=== PATIENT | male | born 1970 | race Caucasian/White ===

== ENCOUNTER 2019-11-30 15:33 | Inpatient (IN) | payer MEDICAID, SELFPAY ==
[2019-11-30] VITALS (40 sets, daily range): BP systolic 117–180; BP diastolic 58–98; PULSE 62–90; RESP 8–27; TEMP 36–36.4; O2SAT 92–100
--- NOTE | 2019-11-30 15:49 | ED.GENADUL_ITS ---
Discharge Plan Disposition Patient Disposition: [facility] INPATIENT Condition: Fair Discharge Details Chief Complaint: Chest Pain Clinical Impression: Pancreatitis, acute Admit Date/Time: 11/30/19 19:34 Admit Provider: Mendel Braswell Attending Provider: Mendel Braswell Primary Care Provider: Cm Neri ED Provider: Oralia Calle Discharge Data Discharge Date/Time-TO BE ENTERED AT DEPARTURE: 11/30/19 20:45 Medical Decision Making Patient is a 49-year-old gentleman presenting today with chief complaint of epigastric, right upper quadrant pain. Patient had been perceiving this is a potential NE. He states the pain came on suddenly when he was working. He states that he was seated at the time the pain began. Reports this came on approximately 1 hour after drinking a large energy drink which is atypical for him. He states that then later when sitting in the car, he began having tingling in his bilateral upper extremities. He denies any substernal chest pain. No cough. No fevers or chills. States that initially, the pain radiated to the back but this since subsided. Past medical history pertinent for GERD as well as Sienna-Lerner tear which was surgically corrected. Patient reports he smokes 1 pack of cigarettes daily. Reports 3 alcoholic beverages a night. Reports occasional cocaine use, none in the past few days. No history of cardiac disease. Denies history of anxiety. On exam, patient appears quite anxious. He does not appear toxic. Lung sounds are clear. Normal cardiac exam. 2+ distal pulses in all extremities. RUQ tenderness, negative Malhotra's sign. Pain is also elicited in epigastric region, no LUQ pain, no CP with palpation. No peritoneal findings or evidence of acute surgical abdomen. ECG was reviewed by Dr. Van. Patient is in normal sinus rhythm with a rate of 94. Nonspecific ST flattening. No acute ischemic changes noted. Patient is primarily concerned for ACS which is around the command. History of being sedentary at the time of the onset is less likely a particularly as his pain is elicited with palpation over the epigastric and right upper quadrant region. It did come on after large energy drink and I am concerned that this may have exacerbated his GERD or potentially a gallbladder issue given his location of pain. Patient does drink alcohol routinely, may have pancreatitis but the pain is less pronounced on the left side. He has 2+ distal pulses, no pulsatile mass. No familial history of dissection, no history of connective tissue disorders. Also considered PE particularly as the patient is tachypneic but he is not endorsing shortness of breath. Will screen with a d-dimer. His tingling and tachypnea seems to be primarily driven by anxiety based on exam. US reviewed by radiologist: FINDINGS: ABDOMINAL AORTA AND IVC: Visualized portions normal caliber. PANCREAS: Normal where visualized. LIVER: Normal. Hepatopedal flow in the Portal Vein. Hepatomegaly measuring 17.1 cm. GALLBLADDER: No evidence of cholelithiasis. No evidence of wall thickening. No pericholecystic fluid identified. BILIARY SYSTEM: Common bile duct measures 6.6 mm. No intrahepatic biliary ductal dilation. MALHOTRA'S SIGN: Negative. KIDNEYS: Kidneys are symmetric in size. No evidence of renal calculi. No evidence of hydronephrosis. No renal mass or cyst identified. SPLEEN: Not enlarged. ASCITES: None seen. IMPRESSION: Hepatomegaly otherwise unremarkable abdominal ultrasound. Labs reviewed. No leukocytosis, normal H&H. Patient's d-dimer is elevated at 813. Plan for CTA for PE. Potassium slightly low at 3.2, will replenish this here. Patient does have an anion gap of 13.3. BUN is normal as is creatinine. Initial troponin is less than 0.05. Lipase is elevated at 516. Patient denies any history of pancreatitis. Has had recent alcohol use. With the elevated lipase, w CT for PE also include the abdomen.ill FINDINGS: Pulmonary arteries: No evidence of pulmonary embolus to the segmental level. Aorta: No aneurysm of the aorta. No dissection of the aorta. Lungs: Unremarkable. No consolidation. No masses. Pleural space: Unremarkable. No pneumothorax. No pleural effusion. Heart: Unremarkable. No cardiomegaly. No pericardial effusion. Lymph nodes: Unremarkable. No enlarged lymph nodes. Bones/joints: Unremarkable. No acute fracture. Soft tissues: Unremarkable. IMPRESSION: 1. No evidence of pulmonary embolus to the segmental level. 2. No aneurysm of the aorta. 3. No dissection of the aorta. FINDINGS: Liver: Normal. No mass. Gallbladder and bile ducts: Normal. No calcified stones. No ductal dilation. Pancreas: Hypoattenuation in the pancreas may represent pancreatitis in the appropriate clinical setting. Spleen: Normal. No splenomegaly. Adrenals: Normal. No mass. Kidneys and ureters: Normal. No hydronephrosis. Stomach and bowel: Findings consistent with constipation. Appendix: Normal appendix Intraperitoneal space: Unremarkable. No free air. No significant fluid collection. Vasculature: Unremarkable. No abdominal aortic aneurysm. Lymph nodes: Unremarkable. No enlarged lymph nodes. Bladder: Unremarkable as visualized. Reproductive: Unremarkable as visualized. Bones/joints: Unremarkable. No acute fracture. Soft tissues: Unremarkable. IMPRESSION: Hypoattenuation in the pancreas may represent pancreatitis in the appropriate clinical setting. Patient is remained n.p.o. Is receiving a second liter of fluids. Sounds most consistent with pancreatitis based on labs and imaging. Awaiting repeat troponin and plan to admit. Consulted with Repeat troponin remains less than 0.05. Consulted with Dr. Braswell regarding admission. He accepts for continued hydration and monitoring. Patient is requesting pain medication, will give 1 mg of Dilaudid. HPI General Mode of arrival: ambulatory . Date/Time Provider Initiated Documentation: 11/30/19 15:33 . Limitations to Documentation: no limitations . Information obtained by: patient and RN notes reviewed . HPI Narrative: Patient is a pleasant 49-year-old male with history of GERD, presenting today with chief complaint of sharp epigastric pain that began approximately 1300. He reports that he was sitting while at work. 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 States the pain did radiate to the back. He states that initially, feels very similar to GERD he has experienced historically. He does report that recently, he has been forgetting to take his omeprazole. States that recently his GERD has been worse and associates it with this medication change. Denies any nausea or vomiting. He reports that then later when he was driving home seated in a truck he became short of breath, dizzy and noted tingling in bilateral upper extremities. He denies any change in bowel or bladder habits. No fevers or chills. Denies any cough. Has not had much for water today but does report drinking a very large energy drink approximately 1 hour to the onset of symptoms which she states is very unusual for him. Related Data Home Medications Medication Instructions Recorded Confirmed bupropion HCl [Wellbutrin XL] 300 mg PO QAM 11/30/19 11/30/19 methadone 80 mg PO DAILY 11/30/19 11/30/19 pantoprazole [Protonix] 40 mg PO DAILY 11/30/19 11/30/19 Allergies Allergy/AdvReac Type Severity Reaction Status Date / Time No Known Allergies Allergy Unverified 11/30/19 15:37 General Stated Complaint: Chest Pain MICKIE: 2 Review of Systems Constitutional Constitutional: Reports as per HPI, Denies chills, Denies fever(s), Denies headache(s), Denies lethargy and Denies poor appetite Eyes Eyes: Denies change in vision ENT Ears, Nose, Mouth, and Throat: Denies dizziness and Denies headache(s) Cardiovascular Cardiovascular: Reports as per HPI, Denies chest pain, Denies chest pain at rest, Denies chest pain with activity, Denies edema, Denies irregular heart rhythm, Denies leg edema, Reports lightheadedness, Denies radiating jaw, neck or arm pain, Denies palpitations, Denies dyspnea, Denies dyspnea on exertion and Denies orthopnea Respiratory Respiratory: Reports as per HPI, Denies chest congestion, Denies cough, Denies pain on inspiration, Denies pain with cough, Denies dyspnea, Denies dyspnea on exertion and Denies wheezing Gastrointestinal Gastrointestinal: Reports as per HPI, Reports abdominal pain, Denies hematochezia, Denies coffee ground emesis, Denies diarrhea, Denies nausea and Denies vomiting Genitourinary Genitourinary: Denies system reviewed and no additional complaints, except as documented (denies change in urinary habits) Musculoskeletal Musculoskeletal: Reports as per HPI and Reports back pain (Had this initially and it since subsided) Integumentary/Breasts Skin/Breast: Reports as per HPI and Denies rash Neurologic Neurologic: Reports as per HPI, Denies dizziness and Denies headache(s) Endocrine Endocrine: Denies palpitations Allergic/Immunologic Allergic/Immunologic: Denies wheezing [facility] Medical History (Updated 12/01/19 @ 14:53 by Jordana Mcgovern NP) Alcohol abuse, daily use (Chronic) Depression (Chronic) Opioid dependence on agonist therapy (Chronic) Tobacco dependence due to cigarettes (Chronic) Social History Smoking/Tobacco Use Status: Current every day Tobacco Type: cigarettes Alcohol Intake: current Alcohol Intake frequency: 3 or more drinks per day Alcohol type: beer Drug use: Daily Substance use type: marijuana and crack/cocaine Do you feel safe at home: Yes Do you feel safe in your relationship?: Yes Exam Const General: cooperative, comfortable, no acute distress, well developed and anxious Nutritional Appearance: well nourished and thin Orientation: alert, awake and oriented x3 HENMT Head: normal to inspection Ears: hearing grossly normal bilaterally Mouth: mucous membranes dry (Patient appears dehydrated) Neck Neck: no JVD Chest Chest: normal inspection of the chest, normal palpation of entire chest wall and no crepitus Resp Effort & Inspection: normal respiratory effort, able to speak in complete sentences and no respiratory distress Auscultation: clear to auscultation bilaterally, no rales, no rhonchi and no wheezes Cardio Rate: regular rate Rhythm: regular rhythm Heart Sounds: S1 normal and S2 normal GI Inspection: normal to inspection, no edema and non-distended Palpation: soft, no hepatosplenomegaly, not firm, no guarding, not rigid and tender in the RUQ; not at McBurney's point, Malhotra's sign negative and with no rebound tenderness Auscultation: normal bowel sounds Back/Spine/Pelvis Back: no CVA tenderness Thoracic/Lumbar Spine: thoracic and lumbar spine normal to inspection Skin General skin exam: no rashes or lesions noted Trauma: no lacerations or abrasions Neuro General: patient alert, patient awake and patient oriented x3 Cognition: normal cognition Speech: speech normal Gait: normal gait Extrem General: normal to inspection, capillary refill normal, no pedal edema, no calf tenderness, normal gait and other (2+ distal pulses in all extremities) Psych Appearance: grossly normal and well kempt Mental Status: mental status grossly normal Speech and Movement: speech and movement normal Course Vital Signs Vital signs: Vital Signs Temperature 36.4 C L 11/30/19 15:39 Pulse 87 11/30/19 15:39 Respiratory Rate 26 H 11/30/19 15:39 Blood Pressure 125/71 11/30/19 15:39 Pulse Oximetry 99 11/30/19 15:39 Temperature 36.4 C L 11/30/19 15:39 Temperature Source Temporal Artery Scan 11/30/19 15:39 Pulse 87 11/30/19 15:39 Respiratory Rate 26 H 11/30/19 15:39 Respiratory Effort Non-Labored 11/30/19 15:42 Blood Pressure 125/71 11/30/19 15:39 Blood Pressure Position Sitting 11/30/19 15:39 Pulse Oximetry 99 11/30/19 15:39 Oxygen Delivery Method Room Air 11/30/19 15:39 Oxygen Flow Rate 0 11/30/19 15:39 Pain Level 4 11/30/19 15:39
[2019-11-30 15:51] LABS: Abs Immature Grans 0.02 k/cumm (0.0-0.09); Absolute Basophil Count 0.05 k/cumm (0.0-0.2); Absolute Eosinophil Count 0.08 k/cumm (0.0-0.7); Absolute Lymphocyte Count 4.28 k/cumm (1.2-3.4); Absolute Monocyte Count 0.95 k/cumm (0.11-0.7); Absolute Neutrophil Count 3.55 k/cumm (1.2-6.7); Basophils % 0.6; Eosinophils % 0.9; HCT 44.5 % (40.0-50.0); HGB 15.7 g/dL (13.5-17.5); Immature Grans % 0.2 %; Lymphocytes % 47.9; Mean Corp. HGB Concentration 35.3 g/dL (32.0-36.0); Mean Corpuscular Hemoglobin 31.3 pg (27.0-33.0); Mean Corpuscular Volume 88.6 fL (80-95); Mean Platelet Volume 8.9 fL (8.0-11.0); Monocytes % 10.6; Neutrophils % 39.8; Platelet Count 298 x1000/uL (130-400); RBC 5.02 m/cumm (4.50-6.00); RBC Distribution Width 14.9 % (11.8-14.1); White Blood Cell Count 8.93 k/cumm (4.4-10.8)
--- NOTE | 2019-11-30 16:00 | DI.RAD_ITS ---
EXAM: XR CHEST 2V PA LATERAL CLINICAL HISTORY: epigastric/RUQ pain, radiates into chest TECHNIQUE: 2D digital imaging was performed. COMPARISON: No exams were available for comparison FINDINGS: MEDIASTINUM: Normal. HEART: Normal. PULMONARY VASCULATURE: Normal. LUNGS: Clear. PLEURAL SPACE: No pleural effusion or pneumothorax. BONE:Degenerative changes in the spine. OTHER FINDINGS:Normal. IMPRESSION: No acute pulmonary findings. DATA REPOSITORY: RADIATION DOSE DELIVERED:
--- NOTE | 2019-11-30 16:00 | DI.US_ITS ---
EXAM: US ABDOMEN CLINICAL HISTORY: RUQ pain TECHNIQUE: Ultrasound abdomen performed using standard protocol. COMPARISON: No exams were available for comparison FINDINGS: ABDOMINAL AORTA AND IVC: Visualized portions normal caliber. PANCREAS: Normal where visualized. LIVER: Normal. Hepatopedal flow in the Portal Vein. Hepatomegaly measuring 17.1 cm. GALLBLADDER: No evidence of cholelithiasis. No evidence of wall thickening. No pericholecystic fluid identified. BILIARY SYSTEM: Common bile duct measures 6.6 mm. No intrahepatic biliary ductal dilation. LUND'S SIGN: Negative. KIDNEYS: Kidneys are symmetric in size. No evidence of renal calculi. No evidence of hydronephrosis. No renal mass or cyst identified. SPLEEN: Not enlarged. ASCITES: None seen. IMPRESSION: Hepatomegaly otherwise unremarkable abdominal ultrasound. DATA REPOSITORY:
[2019-11-30 16:12] LABS: ALT 35 U/L (16-63); AST 33 U/L (15-37); Albumin 3.9 g/dL (3.4-5.0); Alkaline Phosphatase 95 U/L (46-116); Anion Gap 13.3 mmol/L (3-11); BUN 7 mg/dL (7-18); Bilirubin, Total 0.4 mg/dL (0.2-1.0); CO2 24.7 mmol/L (21.0-32.0); CREATININE 0.96 mg/dL (0.70-1.30); Calcium 9.1 mg/dL (8.5-10.1); Chloride 99 mmol/L (98-107); Glucose 99 mg/dL (74-106); Magnesium 2.1 mg/dL (1.8-2.4); Potassium 3.2 mmol/L (3.5-5.1); Sodium 137 mmol/L (136-145)
[2019-11-30 16:15] LABS: Troponin I < 0.05 ng/mL (<0.06)
[2019-11-30 16:20] LABS: Lipase 516 U/L (73-393)
[2019-11-30 16:29] LABS: D-Dimer 813 ng/mlFEU (<500)
[2019-11-30] MEDS: Lactated Ringers 1,000 ML 1000 ML IV ×2 (16:30→18:30)
--- NOTE | 2019-11-30 16:44 | DI.VRAD_ITS ---
PROCEDURE INFORMATION: Exam: US Abdomen Complete Exam date and time: 11/30/2019 4:02 PM Age: 49 years old Clinical indication: Abdominal pain; Localized; Right upper quadrant (ruq); Patient HX: Elevated lipase TECHNIQUE: Imaging protocol: Real-time ultrasound of the abdomen with image documentation. COMPARISON: No relevant prior studies available. FINDINGS: Liver: Hepatomegaly 17 cm Gallbladder: Gallbladder wall 1.7 mm. Gallbladder appears mildly contracted Common bile duct: Common bile duct 6.6 mm Pancreas: Visualized pancreas is unremarkable. Right kidney: Right kidney 11.7 cm. No hydronephrosis Left kidney: Left kidney 13.3 cm. No hydronephrosis Spleen: Spleen 7.7 cm Aorta: Proximal aorta 2.3 cm. Mid aorta 1.6 cm Inferior vena cava: Proximal IVC 2.9 cm Portal venous: Antegrade flow in the portal vein IMPRESSION: Hepatomegaly 17 cm Dictated and Authenticated by: Tracey Brasher MD. Ordering:BARBARA Barton MD
--- NOTE | 2019-11-30 16:45 | DI.CT_ITS ---
EXAM: CT CHEST PE ABD PELVIS W CLINICAL HISTORY: epigastric pain, elevated lipase, tachypnic, d-dim TECHNIQUE: Imaging Protocol: Axial computed tomography images with coronal and sagittal reformatted images were created and reviewed CONTRAST MATERIAL: Intravenous: Omnipaque 350 Contrast volume:100 mL Oral: No COMPARISON: No exams were available for comparison FINDINGS: CHEST: Tracheobronchial tree: Patent where visualized. Mediastinum and Yaima: No dominant adenopathy or fluid collection. Pulmonary parenchyma: No consolidation or dominant measurable mass. No architectural distortion. Pleura: No effusion or pneumothorax. Heart: The heart is not dilated. No coronary artery calcifications are seen. No pericardial effusion. Aorta: No evidence of a thoracic aortic dissection or aneurysm. Pulmonary arteries: No evidence of pulmonary embolus. Lymph nodes: Within normal limits. Bones:Normal. ABDOMEN: Liver: Normal density. No measurable mass. Portal, Superior Mesenteric, and Splenic Veins: Unremarkable. Gallbladder and Biliary Tract: No radiodense calculus or dilation. Pancreas: There is mild decrease in the attenuation of the pancreas. There also appear to a small am ount of fluid around the pancreas. No focal fluid collection is seen to suggest an abscess. Spleen: Normal. Adrenals: No masses seen. Kidneys: Normal size, contour and axis. No radiodense stones or obstructive uropathy. No masses seen. There are a few tiny hypodensities scattered in the left kidney. They are too small for further barbi racterization but likely reflect small cysts. Abdominal Aorta: Abdominal portion non-dilated. Atherosclerosis. Bowel: No obstruction or bowel wall thickening. Appendix is unremarkable. Retained stool suggesting c onstipation. Peritoneal Cavity: No ascites, collection or mesenteric inflammatory response. Lymph Nodes: Within normal limits. Bones: Unremarkable. Soft Tissues: Unremarkable. PELVIS: Bladder: Symmetric distention, no gross wall thickening. Reproductive Organs: Unremarkable as visualized. Lymph Nodes: Within normal limits. Bones: Within normal limits. IMPRESSION: 1. Decreased attenuation of the pancreas with a small amount of fluid in the peripancreatic soft tiss ues. This may represent acute pancreatitis. Please correlate clinically. 2. No evidence of pulmonary embolus, thoracic aortic dissection or aneurysm. RADIATION DOSE DELIVERED: 1,053.53mGy.cm Total DLP 1,053.53mGy.cm Total DLP DATA REPOSITORY: All CT scans at this facility are submitted to the National Radiology Data Registry (NRDR) Dose Index Registry (DIR) with the [employer] (A[employer]). RADIATION OPTIMIZATION: All CT scans at this facility use at least one of these dose optimization te chniques: automated exposure control; mA and/or kV adjustment per patient size (includes targeted exa ms where dose is matched to clinical indication); or iterative reconstruction.
--- NOTE | 2019-11-30 16:55 | DI.VRAD_ITS ---
PROCEDURE INFORMATION: Exam: XR Chest, 2 Views Exam date and time: 11/30/2019 4:36 PM Age: 49 years old Clinical indication: Other: Epigastric/ruq pain, radiates into chest TECHNIQUE: Imaging protocol: XR of the chest Views: 2 views. COMPARISON: No relevant prior studies available. FINDINGS: Lungs: Unremarkable. No consolidation. Pleural space: Unremarkable. No pleural effusion. No pneumothorax. Heart/Mediastinum: Unremarkable. No cardiomegaly. Bones/joints: Unremarkable. IMPRESSION: No acute findings. Dictated and Authenticated by: Tracey Brasher MD. Ordering:BARBARA Barton MD
[2019-11-30] MEDS: Omnipaque 350 MG/ML 100 ML BTL IV (17:48)
[2019-11-30] MEDS: Normal Saline Flush 10 ML SYR IVP ×2 (17:49→21:20)
[2019-11-30] MEDS: Normal Saline - Diluent 50 ML VIAL IV (17:49)
--- NOTE | 2019-11-30 18:11 | DI.VRAD_ITS ---
PROCEDURE INFORMATION: Exam: CT Angiography Chest With Contrast Exam date and time: 11/30/2019 5:33 PM Age: 49 years old Clinical indication: Abdominal tenderness and other: Epigastric pain, elevated lipase, tachypnic, d-dim; Additional info: Epigastric pain, elevated lipase, tachypnic, d-dim chest for pe and a/p TECHNIQUE: Imaging protocol: Computed tomographic angiography of the chest with intravenous contrast. 3D rendering: MIP and/or 3D reconstructed images were created by the technologist. Radiation optimization: All CT scans at this facility use at least one of these dose optimization techniques: automated exposure control; mA and/or kV adjustment per patient size (includes targeted exams where dose is matched to clinical indication); or iterative reconstruction. Contrast material: OMNIPAQUE 350; Contrast volume: 100 ml; Contrast route: IV; COMPARISON: CR XR CHEST 2V PA LATERAL 11/30/2019 4:36 PM FINDINGS: Pulmonary arteries: No evidence of pulmonary embolus to the segmental level. Aorta: No aneurysm of the aorta. No dissection of the aorta. Lungs: Unremarkable. No consolidation. No masses. Pleural space: Unremarkable. No pneumothorax. No pleural effusion. Heart: Unremarkable. No cardiomegaly. No pericardial effusion. Lymph nodes: Unremarkable. No enlarged lymph nodes. Bones/joints: Unremarkable. No acute fracture. Soft tissues: Unremarkable. IMPRESSION: 1. No evidence of pulmonary embolus to the segmental level. 2. No aneurysm of the aorta. 3. No dissection of the aorta. PROCEDURE INFORMATION: Exam: CT Abdomen And Pelvis With Contrast Exam date and time: 11/30/2019 5:33 PM Age: 49 years old Clinical indication: Abdominal tenderness and other: Epigastric pain, elevated lipase, tachypnic, d-dim; Additional info: Epigastric pain, elevated lipase, tachypnic, d-dim chest for pe and a/p TECHNIQUE: Imaging protocol: Computed tomography of the abdomen and pelvis with intravenous contrast. Radiation optimization: All CT scans at this facility use at least one of these dose optimization techniques: automated exposure control; mA and/or kV adjustment per patient size (includes targeted exams where dose is matched to clinical indication); or iterative reconstruction. Contrast material: OMNIPAQUE 350; Contrast volume: 100 ml; Contrast route: IV; COMPARISON: CR XR CHEST 2V PA LATERAL 11/30/2019 4:36 PM FINDINGS: Liver: Normal. No mass. Gallbladder and bile ducts: Normal. No calcified stones. No ductal dilation. Pancreas: Hypoattenuation in the pancreas may represent pancreatitis in the appropriate clinical setting. Spleen: Normal. No splenomegaly. Adrenals: Normal. No mass. Kidneys and ureters: Normal. No hydronephrosis. Stomach and bowel: Findings consistent with constipation. Appendix: Normal appendix Intraperitoneal space: Unremarkable. No free air. No significant fluid collection. Vasculature: Unremarkable. No abdominal aortic aneurysm. Lymph nodes: Unremarkable. No enlarged lymph nodes. Bladder: Unremarkable as visualized. Reproductive: Unremarkable as visualized. Bones/joints: Unremarkable. No acute fracture. Soft tissues: Unremarkable. IMPRESSION: Hypoattenuation in the pancreas may represent pancreatitis in the appropriate clinical setting. Dictated and Authenticated by: Tracey Brasher MD. Ordering:BARBARA Barton MD
[2019-11-30] MEDS: POTASSIUM CHLORIDE 20 MEQ/100 ML BAG 50 MEQ IVPB (18:38)
[2019-11-30 19:05] LABS: Troponin I < 0.05 ng/mL (<0.06)
--- NOTE | 2019-11-30 19:32 | HPE_ITS ---
Date of service: 11/30/19 Time of Service: 19:32 Assessment and Plan Assessment and plan (1) Pancreatitis, acute: Start date: 11/30/19 Status: Acute Assessment and plan: This a 49-year-old gentleman who is on methadone daily and drinks alcohol daily with an acute presentation of what appears to be pancreatitis. There is no other obvious reason for pancreatitis other than alcohol intake and patient will be on CIWA protocol while on IV hydration and IV fentanyl for acute abdominal pain. He did not mention that he was on methadone in the ED and this was presented to me when interviewing the patient for admission. Also tobacco but does not wish to have a nicotine patch. We will continue him on IV hydration having had potassium replacement in the ED and bowel rest. His methadone dose will be checked with [facility] in the morning before administering and if he is able to take his usual pills with sips of water in the morning the Wellbutrin will be continued. He has on IV Protonix. A lipid profile will be checked in the morning to check for hypertriglyceridemia. Qualifiers: Acute pancreatitis complication: no infection or necrosis Pancreatitis type: alcohol induced Qualified Code(s): K85.20 - Alcohol induced acute pancreatitis without necrosis or infection (2) Alcohol abuse, daily use: Status: Chronic Assessment and plan: CIWA protocol with IV Ativan as needed. Vitamins per IV and IV hydration with bowel rest with his acute pancreatitis. (3) Tobacco dependence due to cigarettes: Status: Chronic Assessment and plan: Offer nicotine patch but patient deferring for now. This can be started at any time. (4) Opioid dependence on agonist therapy: Status: Chronic Assessment and plan: On methadone 80 mg daily but also admits to occasional cocaine use and does smoke tobacco and drink alcohol with his addictions poorly controlled. Urine drug screen was performed on a mission but he had already received fentanyl and Dilaudid IV in transit or in the ED. 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 He does drink alcohol daily with beer in the form of Tall Boys two to three at night. He also smokes cigarettes about 1 pack/day daily. On the day of admission he wa s sitting at work as a gas booster engineer and began to have epigastric sharp pain which may have wandered into the right or left upper abdomen and eventually to his back. He is not having nausea or vomiting but did feel waves of diaphoresis with his discomfort. He denied any diarrhea or bloating. After his onset of pain on the way home when he was driving his truck he felt dyspneic and slightly dizzy with tingling in both upper extremities. He was anxious. He was not hydrating well on the day of admission did drink a very large energy drink about 1 hour prior to the onset of the symptoms. He was concerned about his heart having a friend who had similar symptoms and a heart attack but also the ED provider considered exacerbation of his GERD and he did respond to a GI cocktail with some temporary relief. Imaging did reveal acute pancreatitis with no other findings being negative for pulmonary emboli with a positive d-dimer. The patient did receive some potassium IV secondary to low serum potassium. The troponins were negative with an initial and delta troponin and his EKG had no acute changes. The patient lipase was elevated at 516 which is not double normal but with a positive CT findings patient was admitted for IV hydration and bowel rest for treatment of probable alcoholic pancreatitis with no evidence of cholelithiasis or common duct stones or dilatation. Review of Systems Narrative: 13 point review of systems otherwise unrevealing or stable. The patient has no complaints and no focalizing neurological complaints. He denies any cough with chronic smoking and is on no inhalers. [facility] Medical History (Updated 11/30/19 @ 22:36 by Mendel Braswell) Alcohol abuse, daily use (Chronic) Depression (Chronic) Opioid dependence on agonist therapy (Chronic) Tobacco dependence due to cigarettes (Chronic) Social History Smoking/Tobacco Use Status: Current every day Tobacco Type: cigarettes Alcohol Intake: current Alcohol Intake frequency: 3 or more drinks per day Alcohol type: beer Drug use: Daily Substance use type: marijuana and crack/cocaine Do you feel safe at home: Yes Do you feel safe in your relationship?: Yes Meds Home Medications and Allergies Home Medications Medication Instructions Recorded Confirmed Type bupropion HCl [Wellbutrin XL] 300 mg PO QAM 11/30/19 11/30/19 History methadone 80 mg PO DAILY 11/30/19 11/30/19 History pantoprazole [Protonix] 40 mg PO DAILY 11/30/19 11/30/19 History Allergies Allergy/AdvReac Type Severity Reaction Status Date / Time No Known Allergies Allergy Unverified 11/30/19 15:37 Exam Narrative Exam Narrative: General: Patient appears older than stated age in moderate dist ress from his abdominal pain and slightly diaphoretic with flattened affect but fair eye contact. He is alert and oriented x3. HEENT: Normocephalic, eyes with pupils equal and reactive to light symme trically, extraocular movement intact and sclera anicteric. Oropharynx with dry oral mucosa and poor dentition. External ears normal. External nose normal. Neck: Supple without JVD. Skin: Unkempt, diaphoretic and warm with actinic changes over sun exposed areas. Pale with loss of hair over lower extremities. No rashes or ulcerations. Back: Stooped posture without CVA tenderness. Lungs: Bronchovesicular breath sounds diffusely with expiratory rhonchi and slight increased expiratory phase but no expiratory wheeze. No focalizing rales. Heart: Regular rate and rhythm with no murmurs gallops appreciated. Abdomen: Scaphoid contour, soft with guarding in the epigastrium and tenderness to palpation without rebound, no palpable hepatosplenomegaly and negative Malhotra sign. Bowel sounds are positive in and normal in the lower abdomen but decreased in the upper abdomen. No tympany to percussion. No palpable masses. Genitalia/rectal: Exam deferred. Extremities: Trace edema both lower extremities with peripheral pulses intact, no clubbing or cyanosis. No joint swelling with fair range of motion all joints. Neuro: Cranial nerves II through XII grossly intact. No focalizing motor defici ts. No tremor. Psych: Flattened affect with fair eye contact but little variation. Mood appears depressed. Remote and recent memory intact. Results Imaging Imaging Studies: Exam: CT Angiography Chest With Contrast Exam date and time: 11/30/2019 5:33 PM Age: 49 years old Clinical indication: Abdominal tenderness and other: Epigastric pain, elevated lipase, tachypnic, d-dim; Additional info: Epigastric pain, elevated lipase, tachypnic, d-dim chest for pe and a/p TECHNIQUE: Imaging protocol: Computed tomographic angiography of the chest with intravenous contrast. 3D rendering: MIP and/or 3D reconstructed images were created by the technologist. Radiation optimization: All CT scans at this facility use at least one of these dose optimization techniques: automated exposure control; mA and/or kV adjustment per patient size (includes targeted exams where dose is matched to clinical indication); or iterative reconstruction. Contrast material: OMNIPAQUE 350; Contrast volume: 100 ml; Contrast route: IV; COMPARISON: CR XR CHEST 2V PA LATERAL 11/30/2019 4:36 PM FINDINGS: Pulmonary arteries: No evidence of pulmonary embolus to the segmental level. Aorta: No aneurysm of the aorta. No dissection of the aorta. Lungs: Unremarkable. No consolidation. No masses. Pleural space: Unremarkable. No pneumothorax. No pleural effusion. Heart: Unremarkable. No cardiomegaly. No pericardial effusion. Lymph nodes: Unremarkable. No enlarged lymph nodes. Bones/joints: Unremarkable. No acute fracture. Soft tissues: Unremarkable. IMPRESSION: 1. No evidence of pulmonary embolus to the segmental level. 2. No aneurysm of the aorta. 3. No dissection of the aorta. Exam: CT Abdomen And Pelvis With Contrast Exam date and time: 11/30/2019 5:33 PM Age: 49 years old Clinical indication: Abdominal tenderness and other: Epigastric pain, elevated lipase, tachypnic, d-dim; Additional info: Epigastric pain, elevated lipase, tachypnic, d-dim chest for pe and a/p TECHNIQUE: Imaging protocol: Computed tomography of the abdomen and pelvis with intravenous contrast. Radiation optimization: All CT scans at this facility use at least one of these dose optimization techniques: automated exposure control; mA and/or kV adjustment per patient size (includes targeted exams where dose is matched to clinical indication); or iterative reconstruction. Contrast material: OMNIPAQUE 350; Contrast volume: 100 ml; Contrast route: IV; COMPARISON: CR XR CHEST 2V PA LATERAL 11/30/2019 4:36 PM FINDINGS: Liver: Normal. No mass. Gallbladder and bile ducts: Normal. No calcified stones. No ductal dilation. Pancreas: Hypoattenuation in the pancreas may represent pancreatitis in the appropriate clinical setting. Spleen: Normal. No splenomegaly. Adrenals: Normal. No mass. Kidneys and ureters: Normal. No hydronephrosis. Stomach and bowel: Findings consistent with constipation. Appendix: Normal appendix Intraperitoneal space: Unremarkable. No free air. No significant fluid collection. Vasculature: Unremarkable. No abdominal aortic aneurysm. Lymph nodes: Unremarkable. No enlarged lymph nodes. Bladder: Unremarkable as visualized. Reproductive: Unremarkable as visualized. Bones/joints: Unremarkable. No acute fracture. Soft tissues: Unremarkable. IMPRESSION: Hypoattenuation in the pancreas may represent pancreatitis in the appropriate clinical setting. Dictated and Authenticated by: Tracey Brasher MD. EXAM: US ABDOMEN CLINICAL HISTORY: RUQ pain TECHNIQUE: Ultrasound abdomen performed using standard protocol. COMPARISON: No exams were available for comparison FINDINGS: ABDOMINAL AORTA AND IVC: Visualized portions normal caliber. PANCREAS: Normal where visualized. LIVER: Normal. Hepatopedal flow in the Portal Vein. Hepatomegaly measuring 17.1 cm. GALLBLADDER: No evidence of cholelithiasis. No evidence of wall thickening. No pericholecystic fluid identified. BILIARY SYSTEM: Common bile duct measures 6.6 mm. No intrahepatic biliary ductal dilation. MALHOTRA'S SIGN: Negative. KIDNEYS: Kidneys are symmetric in size. No evidence of renal calculi. No evidence of hydronephrosis. No renal mass or cyst identified. SPLEEN: Not enlarged. ASCITES: None seen. IMPRESSION: Hepatomegaly otherwise unremarkable abdominal ultrasound. Dictated By: Raffy Jaramillo M.D. 11/30/19 1716 Exam: XR Chest, 2 Views Exam date and time: 11/30/2019 4:36 PM Age: 49 years old Clinical indication: Other: Epigastric/ruq pain, radiates into chest TECHNIQUE: Imaging protocol: XR of the chest Views: 2 views. COMPARISON: No relevant prior studies available. FINDINGS: Lungs: Unremarkable. No consolidation. Pleural space: Unremarkable. No pleural effusion. No pneumothorax. Heart/Mediastinum: Unremarkable. No cardiomegaly. Bones/joints: Unremarkable. IMPRESSION: No acute findings. Dictated and Authenticated by: Tracey Brasher MD. Labs Result diagrams: 11/30/19 15:40 11/30/19 15:40 Labs: Laboratory Results - last 24 hr 11/30/19 11/30/19 11/30/19 15:40 15:40 15:40 WBC 8.93 RBC 5.02 Hgb 15.7 Hct 44.5 MCV 88.6 MCH 31.3 MCHC 35.3 RDW 14.9 H Plt Count 298 MPV 8.9 Immature Gran % 0.2 Neutrophils % 39.8 Lymphocytes % 47.9 Monocytes % 10.6 Eosinophils % 0.9 Basophils % 0.6 Absolute Neutrophils 3.55 Absolute Lymphocytes 4.28 H Absolute Monocytes 0.95 H Absolute Eosinophils 0.08 Absolute Basophils 0.05 D-Dimer 813 H Sodium 137 Potassium 3.2 L Chloride 99 Carbon Dioxide 24.7 Anion Gap 13.3 H BUN 7 Creatinine 0.96 Estimated GFR/1.73 m2 >= 60.00 Glucose 99 Calcium 9.1 Magnesium 2.1 Total Bilirubin 0.4 AST 33 ALT 35 Alkaline Phosphatase 95 Troponin I < 0.05 Total Protein 8.0 Albumin 3.9 Lipase 11/30/19 11/30/19 15:40 18:45 WBC RBC Hgb Hct MCV MCH MCHC RDW Plt Count MPV Immature Gran % Neutrophils % Lymphocytes % Monocytes % Eosinophils % Basophils % Absolute Neutrophils Absolute Lymphocytes Absolute Monocytes Absolute Eosinophils Absolute Basophils D-Dimer Sodium Potassium Chloride Carbon Dioxide Anion Gap BUN Creatinine Estimated GFR/1.73 m2 Glucose Calcium Magnesium Total Bilirubin AST ALT Alkaline Phosphatase Troponin I < 0.05 Total Protein Albumin Lipase 516 H Last Vital Signs Temp 36.4 C L 11/30/19 15:39 Pulse 67 11/30/19 18:46 Resp 15 11/30/19 18:46 BP 144/86 H 11/30/19 18:46 Pulse Ox 95 11/30/19 18:46 COVID-19 Screening In the past 14 days, have you traveled outside of [place] or [place]?: NO Had IN PERSON contact w/suspected or confirmed C-19 person: No
[2019-11-30] MEDS: HYDROmorphone 2 MG/ML VIAL 1 MG IVP (20:07)
[2019-11-30 20:39] LABS: PHOSPHORUS 3.6 mg/dL (2.6-4.7)
[2019-11-30] MEDS: POTASSIUM CHLORIDE/0.9% NACL 1,000 ML 125 MEQ IV (21:19)
[2019-11-30] MEDS: fentaNYL 100 MCG/2 ML VIAL 50 MCG IVP ×2 (21:20→23:59)
[2019-11-30] MEDS: Heparin 5,000 UNITS/ML VIAL 5000 UNITS SC (21:20)
[2019-11-30] MEDS: Pantoprazole 40 MG VIAL IVP (21:20)
[2019-11-30] MEDS: MULTIVITAMIN 10 ML, THIAMINE 100 MG, FOLIC ACID 1 MG in DEXTROSE 5%-0.45% SALINE 1,000 ML 42 ML IV (21:54)
[2019-11-30] MEDS: Normal Saline 1,000 ML 125 ML IV (22:25)
[2019-11-30 22:37] LABS: *AMPHETAMINES SCREEN URINE Negative (Negative); *BARBITURATES SCREEN URINE Negative (Negative); *BENZODIAZEPINES SCREEN URINE Negative (Negative); Cannabinoids THC POSITIVE (Negative); Cocaine Screen,Urine Negative (Negative); METHADONE URINE SCREEN POSITIVE (Negative); OPIATES URINE SCREEN Negative (Negative)
[2019-11-30 22:48] LABS: Tricyclic Antidepressants Negative (Negative)
[2019-11-30 22:53] LABS: Bilirubin Negative (Negative); Blood Negative (Negative); Clarity Clear (Clear); Glucose Negative (Negative); Ketones Trace mg/dL (Negative); Leukocyte Esterase Negative (Negative); Nitrite Negative (Negative); Specific Gravity 1.015 (1.005-1.025); Urobilinogen 0.2 EU/dL (Up TO 0.2); pH 7.5 (5-8)
[2019-12-01] MEDS: fentaNYL 100 MCG/2 ML VIAL 50 MCG IVP ×4 (02:40→08:13)
[2019-12-01 03:43] VITALS: BP 176/93; PULSE 77; RESP 20; TEMP 37.1; O2SAT 98
[2019-12-01] MEDS: Normal Saline 1,000 ML 125 ML IV (06:01)
[2019-12-01] MEDS: Heparin 5,000 UNITS/ML VIAL 5000 UNITS SC ×3 (06:01→21:55)
[2019-12-01 06:55] LABS: HCT 42.5 % (40.0-50.0); Mean Corp. HGB Concentration 35.3 g/dL (32.0-36.0); Mean Corpuscular Hemoglobin 31.2 pg (27.0-33.0); Mean Corpuscular Volume 88.4 fL (80-95); Mean Platelet Volume 9.5 fL (8.0-11.0); Platelet Count 325 x1000/uL (130-400); RBC 4.81 m/cumm (4.50-6.00); RBC Distribution Width 14.5 % (11.8-14.1); White Blood Cell Count 9.89 k/cumm (4.4-10.8)
[2019-12-01 07:11] LABS: ALT 28 U/L (16-63); AST 22 U/L (15-37); Albumin 3.4 g/dL (3.4-5.0); Alkaline Phosphatase 85 U/L (46-116); Anion Gap 10.4 mmol/L (3-11); BUN 6 mg/dL (7-18); Bilirubin, Total 0.8 mg/dL (0.2-1.0); CO2 24.6 mmol/L (21.0-32.0); CREATININE 0.56 mg/dL (0.70-1.30); Calcium 8.3 mg/dL (8.5-10.1); Chloride 97 mmol/L (98-107); Glucose 154 mg/dL (74-106); Potassium 3.5 mmol/L (3.5-5.1); Sodium 132 mmol/L (136-145); Total Protein 7.1 g/dL (6.4-8.2)
[2019-12-01 07:23] VITALS: BP 169/98; PULSE 73; RESP 17; TEMP 36.6; O2SAT 96
[2019-12-01 07:44] LABS: Lipase 3136 U/L (73-393)
[2019-12-01] MEDS: Normal Saline Flush 10 ML SYR IVP ×7 (08:13→23:37)
[2019-12-01] MEDS: Methadone Liquid 10 MG/ML 80 MG PO (08:35)
--- NOTE | 2019-12-01 09:01 | PDOC.CMIN ---
- If Service Date Differs Date of service: 12/01/19 Time of Service: 09:02 Care Management Initial Assess REASON FOR HOSPITALIZATION:: Pancreatitis PAST MEDICAL HISTORY/PAST SURGICAL HISTORY:: Depression, ETOH use, opiod dependency, tobacco dependency. PREVIOUS FUNCTIONAL STATUS/SOCIAL/FAMILY SUPPORTS:: Mark states that he lives in [place], [place] inbetween his Mothers and girlfriends home. He states he is independent with ADL's, he uses [facility] for transportation. He states his children are grown he does report his Mom is ill and he cares for her in the community. CURRENT FUNCTIONAL STATUS:: Mark is alert he is unable to engage well due to pain. He turns away from career services coordinator during engagement and curls up on his side in pain. CM did offer to discuss resources for recovery when his pain is more controlled he states he is open to the conversation. He reports that he does not use a lot of alcohol he states about two beers a day that last all day. He states he does bindge once in awhile. CM will revist resources including disaster recovery consultant when patients symptoms are managed. ADVANCE DIRECTIVES:: None on file at this time will approach again when patient is able to engage. Has patient been provided with info about the portal/API?: Yes Did the patient sign up for the portal?: No CODE STATUS:: Full Code INSURANCE COVERAGE / FINANCIAL ISSUES:: Medicaid CURRENT HOME/COMMUNITY SERVICES/EQUIPMENT:: [facility], [facility] PRIMARY CARE PHYSICIAN:: Cm Steen POTENTIAL DISCHARGE NEEDS:: Follow up with primary care and recovery services. Patient will need a last dose letter at time of discharge for [facility]. PATIENT/FAMILY EDUCATION NEEDS:: [facility] education, limitations and follow up plan of care including ask me three and self management ANTICIPATED BARRIERS TO DISCHARGE:: No barriers identified at this time. TRANSPORTATION:: [facility] vs Friend or Family patient will request transportation if needed. PLAN:: Mark will be discharged home when medically ready for discharge. He is currently being monitored for alcohol withdrawal and pancreatitis. He needs continuing monitoring of labs and close monitoring of his condition. CM will continue to provide support and assess for discharge needs.
[2019-12-01 09:09] LABS: C-Reactive Protein 0.71 mg/dL (0.0-0.3)
[2019-12-01] MEDS: Pantoprazole 40 MG VIAL IVP ×2 (09:31→21:53)
--- NOTE | 2019-12-01 10:18 | PGE_ITS ---
Date of Service Date of service: 12/01/19 Time of Service: 10:18 Assessment and Plan Assessment and plan (1) Pancreatitis, acute: Status: Acute Assessment and plan: lipase up and pain ongoing today. will discontinue fentanyl and use dilaudid, no fevers, continue NPO. continue IV fluids. bowel management Qualifiers: Acute pancreatitis complication: no infection or necrosis Pancreatitis type: alcohol induced Qualified Code(s): K85.20 - Alcohol induced acute pancreatitis without necrosis or infection (2) Opioid dependence on agonist therapy: Status: Chronic Assessment and plan: continue methadone home dosing. (3) Alcohol abuse, daily use: Status: Chronic Assessment and plan: continue CIWA precautions and medicate as needed. MVI, folic acid and thiamine daily. (4) Tobacco dependence due to cigarettes: Status: Chronic Assessment and plan: nicotine patch as needed. (5) Depression: Status: Chronic Assessment and plan: continue wellbutrin (6) GERD (gastroesophageal reflux disease): Status: Chronic Assessment and plan: continue PPI daily (7) DVT prophylaxis: Status: Acute Assessment and plan: heparin sq, SCD's (8) Discharge planning issues: Status: Acute Assessment and plan: anticipate discharge to home with no services. case management following. Subjective Subjective Patient reports: still having pain and nausea; denies shortness of breath and afebrile Interval history since last seen: c/o abdominal pain, lying in bed, diaphoretic, no tremors noted. minimal conversation, resting with eyes closed, moans occasionally to indicate yes or no Exam Const General: cooperative, acute distress moderate, not anxious, not combative, disheveled and ill appearing (older appearing than stated age) chronically Nutritional Appearance: average body habitus Orientation: awake and oriented x3 HENTN Head: normal to inspection, normocephalic and atraumatic Mouth: moist mucous membranes (dry) Resp Effort & Inspection: normal respiratory effort Auscultation: clear to auscultation bilaterally and diminished lung sounds Cardio Rate: regular rate and not tachycardic Rhythm: regular rhythm GI Inspection: normal to inspection Palpation: soft, not firm, no guarding, not rigid and tender in the epigastrum, in the LLQ and in the RLQ Skin General skin exam: other (multiple tatoos. ) Neuro General: patient alert, patient awake and patient oriented x3 Cranial Nerves: CN's II-XI intact bilaterally Cognition: normal cognition Speech: speech normal Extrem General: normal to inspection and full ROM Objective Objective Clinical Data: Abnormal lab results 11/30/19 11/30/19 11/30/19 Range/Units 15:40 15:40 15:40 RDW 14.9 H (11.8-14.1) % Absolute Lymphocytes 4.28 H (1.2-3.4) k/cumm Absolute Monocytes 0.95 H (0.11-0.7) k/cumm D-Dimer 813 H (<500) ng/mlFEU Sodium (136-145) mmol/L Potassium 3.2 L (3.5-5.1) mmol/L Chloride (98-107) mmol/L Anion Gap 13.3 H (3-11) mmol/L BUN (7-18) mg/dL Creatinine (0.70-1.30) mg/dL Glucose (74-106) mg/dL Calcium (8.5-10.1) mg/dL C-Reactive Protein (0.0-0.3) mg/dL Lipase (73-393) U/L Urine Ketones (Negative) mg/dL Urine Methadone Screen (Negative) Ur THC Screen (Negative) 11/30/19 11/30/19 11/30/19 Range/Units 15:40 21:00 21:00 RDW (11.8-14.1) % Absolute Lymphocytes (1.2-3.4) k/cumm Absolute Monocytes (0.11-0.7) k/cumm D-Dimer (<500) ng/mlFEU Sodium (136-145) mmol/L Potassium (3.5-5.1) mmol/L Chloride (98-107) mmol/L Anion Gap (3-11) mmol/L BUN (7-18) mg/dL Creatinine (0.70-1.30) mg/dL Glucose (74-106) mg/dL Calcium (8.5-10.1) mg/dL C-Reactive Protein (0.0-0.3) mg/dL Lipase 516 H (73-393) U/L Urine Ketones Trace H (Negative) mg/dL Urine Methadone Screen Positive A (Negative) Ur THC Screen Positive A (Negative) 12/01/19 12/01/19 12/01/19 Range/Units 06:30 06:30 06:30 RDW 14.5 H (11.8-14.1) % Absolute Lymphocytes (1.2-3.4) k/cumm Absolute Monocytes (0.11-0.7) k/cumm D-Dimer (<500) ng/mlFEU Sodium 132 L (136-145) mmol/L Potassium (3.5-5.1) mmol/L Chloride 97 L (98-107) mmol/L Anion Gap (3-11) mmol/L BUN 6 L (7-18) mg/dL Creatinine 0.56 L D (0.70-1.30) mg/dL Glucose 154 H (74-106) mg/dL Calcium 8.3 L (8.5-10.1) mg/dL C-Reactive Protein 0.71 H (0.0-0.3) mg/dL Lipase 3136 H (73-393) U/L Urine Ketones (Negative) mg/dL Urine Methadone Screen (Negative) Ur THC Screen (Negative) Vital Signs Temperature 36.6 C 12/01/19 07:23 Temperature Source Tympanic 12/01/19 07:23 Pulse 73 12/01/19 07:23 Pulse Rhythm Regular 12/01/19 08:15 Pulse 75 11/30/19 19:40 Respiratory Rate 17 12/01/19 07:23 Respiratory Effort Non-Labored 12/01/19 08:15 Respiratory Depth Normal 12/01/19 08:15 Respiratory Pattern Normal 12/01/19 08:15 Blood Pressure 169/98 H 12/01/19 07:23 Blood Pressure Mean 109 11/30/19 19:31 Blood Pressure Position Sitting 11/30/19 15:39 Pulse Oximetry 96 12/01/19 07:23 Oxygen Delivery Method Room Air 12/01/19 07:23 Oxygen Flow Rate 0 12/01/19 07:23 Pain Level 7 12/01/19 08:13 Intake & Output 11/30/19 11/30/19 12/01/19 11:59 23:59 11:59 Intake Total 1000 / 1000 1405.417 / 1405.417 Output Total 750 / 750 2150 / 2150 Balance 250 / 250 -744.583 / -744.583 Weight 74.843 kg Intake: IV 1000 / 1000 1405.417 / 1405.417 Output: Urine 750 / 750 2049 / 2049 Emesis 100 / 100 Other: Urine Color Pale Yellow Yellow Urine Appearance Clear Clear Stool Size Moderate Emesis Description Bile Voiding Methods Toilet Urinal Laboratory Results WBC 9.89 k/cumm (4.4-10.8) 12/01/19 06:30 RBC 4.81 m/cumm (4.50-6.00) 12/01/19 06:30 Hgb 15.0 g/dL (13.5-17.5) 12/01/19 06:30 Hct 42.5 % (40.0-50.0) 12/01/19 06:30 MCV 88.4 fL (80-95) 12/01/19 06:30 MCH 31.2 pg (27.0-33.0) 12/01/19 06:30 MCHC 35.3 g/dL (32.0-36.0) 12/01/19 06:30 RDW 14.5 % (11.8-14.1) H 12/01/19 06:30 Plt Count 325 x1000/uL (130-400) 12/01/19 06:30 MPV 9.5 fL (8.0-11.0) 12/01/19 06:30 Immature Gran % 0.2 % 11/30/19 15:40 Neutrophils % 39.8 11/30/19 15:40 Lymphocytes % 47.9 11/30/19 15:40 Monocytes % 10.6 11/30/19 15:40 Eosinophils % 0.9 11/30/19 15:40 Basophils % 0.6 11/30/19 15:40 Absolute Neutrophils 3.55 k/cumm (1.2-6.7) 11/30/19 15:40 Absolute Lymphocytes 4.28 k/cumm (1.2-3.4) H 11/30/19 15:40 Absolute Monocytes 0.95 k/cumm (0.11-0.7) H 11/30/19 15:40 Absolute Eosinophils 0.08 k/cumm (0.0-0.7) 11/30/19 15:40 Absolute Basophils 0.05 k/cumm (0.0-0.2) 11/30/19 15:40 D-Dimer 813 ng/mlFEU (<500) H 11/30/19 15:40 Sodium 132 mmol/L (136-145) L 12/01/19 06:30 Potassium 3.5 mmol/L (3.5-5.1) 12/01/19 06:30 Chloride 97 mmol/L (98-107) L 12/01/19 06:30 Carbon Dioxide 24.6 mmol/L (21.0-32.0) 12/01/19 06:30 Anion Gap 10.4 mmol/L (3-11) 12/01/19 06:30 BUN 6 mg/dL (7-18) L 12/01/19 06:30 Creatinine 0.56 mg/dL (0.70-1.30) L D 12/01/19 06:30 Estimated GFR/1.73 m2 >= 60.00 (mL/min/1.73m2) 12/01/19 06:30 Glucose 154 mg/dL (74-106) H 12/01/19 06:30 Calcium 8.3 mg/dL (8.5-10.1) L 12/01/19 06:30 Phosphorus 3.6 mg/dL (2.6-4.7) 11/30/19 15:40 Magnesium 2.1 mg/dL (1.8-2.4) 11/30/19 15:40 Total Bilirubin 0.8 mg/dL (0.2-1.0) 12/01/19 06:30 AST 22 U/L (15-37) 12/01/19 06:30 ALT 28 U/L (16-63) 12/01/19 06:30 Alkaline Phosphatase 85 U/L (46-116) 12/01/19 06:30 Troponin I < 0.05 ng/mL (<0.06) 11/30/19 18:45 C-Reactive Protein 0.71 mg/dL (0.0-0.3) H 12/01/19 06:30 Total Protein 7.1 g/dL (6.4-8.2) 12/01/19 06:30 Albumin 3.4 g/dL (3.4-5.0) 12/01/19 06:30 Lipase 3136 U/L (73-393) H 12/01/19 06:30 Urine Color Yellow (Yellow) 11/30/19 21:00 Urine Clarity Clear (Clear) 11/30/19 21:00 Urine pH 7.5 (5-8) 11/30/19 21:00 Ur Specific [place] 1.015 (1.005-1.025) 11/30/19 21:00 Urine Protein Negative mg/dL (Negative) 11/30/19 21:00 Urine Ketones Trace mg/dL (Negative) H 11/30/19 21:00 Urine Blood Negative (Negative) 11/30/19 21:00 Urine Nitrite Negative (Negative) 11/30/19 21:00 Urine Bilirubin Negative (Negative) 11/30/19 21:00 Urine Urobilinogen 0.2 EU/dL (Up TO 0.2) 11/30/19 21:00 Ur Leukocyte Esterase Negative (Negative) 11/30/19 21:00 Urine Glucose Negative mg/dL (Negative) 11/30/19 21:00 Urine Opiates Screen Negative (Negative) 11/30/19 21:00 Urine Methadone Screen Positive (Negative) A 11/30/19 21:00 Ur Barbiturates Screen Negative (Negative) 11/30/19 21:00 Ur Tricyclics Screen Negative (Negative) 11/30/19 21:00 Ur Amphetamines Screen Negative (Negative) 11/30/19 21:00 U Benzodiazepines Scrn Negative (Negative) 11/30/19 21:00 Urine Cocaine Screen Negative (Negative) 11/30/19 21:00 Ur THC Screen Positive (Negative) A 11/30/19 21:00
[2019-12-01 11:18] VITALS: BP 150/85; PULSE 81; RESP 19; TEMP 36.7; O2SAT 97
[2019-12-01] MEDS: HYDROmorphone 2 MG/ML VIAL 1 MG IVP ×3 (11:37→21:54)
[2019-12-01] MEDS: Normal Saline 1,000 ML 200 ML IV ×2 (12:08→18:47)
[2019-12-01 12:19] LABS: COVID-19 RT-PCR UVMMC Result Negative (Negative)
[2019-12-01] MEDS: LORazepam 2 MG/ML VIAL IVP (13:57)
--- NOTE | 2019-12-01 14:21 | PHA.REVIEW ---
Pharmacy Admission Review - Admission Clinical Review (Last Updated 11/30/19 @ 22:27 by Mendel Braswell) Discharge planning issues (Acute) DVT prophylaxis (Acute) Pancreatitis, acute (Acute) No Known Allergies Allergy (Unverified 11/30/19 15:37) Height 6 ft Weight 74.843 kg - Renal Dosing Renal Dosing: BUN 6 mg/dL (7-18) L 12/01/19 06:30 Creatinine 0.56 mg/dL (0.70-1.30) L D 12/01/19 06:30 Medications needing adjustments: Reviewed (Crcl ~120.84 mL/min current meds okay) - Anticoagulation Anticoagulation: Hgb 15.0 g/dL (13.5-17.5) 12/01/19 06:30 Hct 42.5 % (40.0-50.0) 12/01/19 06:30 Plt Count 325 x1000/uL (130-400) 12/01/19 06:30 Creatinine 0.56 mg/dL (0.70-1.30) L D 12/01/19 06:30 DVT Prohphylaxis: Reviewed Medications: Heparin - Opiate Usage Evaluate Pain Scale/Pains Meds: Reviewed Scheduled Bowel Reg ordered if on Opiates?: No (has PRN meds ordered) - Relevant Labs Sodium 132 mmol/L (136-145) L 12/01/19 06:30 Potassium 3.5 mmol/L (3.5-5.1) 12/01/19 06:30 Chloride 97 mmol/L (98-107) L 12/01/19 06:30 Phosphorus 3.6 mg/dL (2.6-4.7) 11/30/19 15:40 Magnesium 2.1 mg/dL (1.8-2.4) 11/30/19 15:40 C-Reactive Protein 0.71 mg/dL (0.0-0.3) H 12/01/19 06:30 Electrolytes, C-Reactive P, ESR: Reviewed (K+ replacement ordered) - DM Control DM Control: Glucose 154 mg/dL (74-106) H 12/01/19 06:30 Insulin Dosing: N/A - Heart Failure/KY Heart Failure/KY: Troponin I < 0.05 ng/mL (<0.06) 11/30/19 18:45 EF%, ISIDRA's, B-Blockers, Diuretics: N/A - BP Control BP Control: Blood Pressure 150/85 Blood Pressure 169/98 Blood Pressure 176/93 If elevated: Reviewed - Qtc Review If Elevated: N/A (QTc 463 has methadone and ondansetron ordered) - IV to PO Switch IV Medications: N/A - Home Meds Home Med List reviewed: Reviewed Relevent Home Meds Not ordered & why?: all ordered - Current meds Current Medication Order Review: Intervened (discontinued a dispensing machine order) - Comments Comments/Follow Ups: Watch BP, K+, labs and for med changes
[2019-12-01 15:57] VITALS: BP 168/100; PULSE 71; RESP 19; TEMP 36.4; O2SAT 95
[2019-12-01 19:31] VITALS: BP 159/88; PULSE 75; RESP 17; TEMP 36.3; O2SAT 95
[2019-12-01] MEDS: Melatonin 3 MG TAB 9 MG PO (21:54)
[2019-12-01 23:24] VITALS: BP 172/98; PULSE 69; RESP 18; TEMP 36.8; O2SAT 95
[2019-12-02] MEDS: Normal Saline 1,000 ML 200 ML IV ×2 (00:13→04:51)
[2019-12-02 00:25] VITALS: BP 132/79; PULSE 63; RESP 16; TEMP 35.8; O2SAT 97
[2019-12-02 03:45] VITALS: BP 160/91; PULSE 73; RESP 18; TEMP 37; O2SAT 96
[2019-12-02] MEDS: Heparin 5,000 UNITS/ML VIAL 5000 UNITS SC ×3 (06:15→22:06)
[2019-12-02 07:34] LABS: Abs Immature Grans 0.03 k/cumm (0.0-0.09); Absolute Eosinophil Count 0.02 k/cumm (0.0-0.7); Absolute Lymphocyte Count 1.53 k/cumm (1.2-3.4); Absolute Monocyte Count 0.87 k/cumm (0.11-0.7); Absolute Neutrophil Count 9.24 k/cumm (1.2-6.7); Eosinophils % 0.2; HCT 45.6 % (40.0-50.0); HGB 16.3 g/dL (13.5-17.5); Immature Grans % 0.3 %; Lymphocytes % 13.1; Mean Corp. HGB Concentration 35.7 g/dL (32.0-36.0); Mean Corpuscular Hemoglobin 31.3 pg (27.0-33.0); Mean Corpuscular Volume 87.7 fL (80-95); Mean Platelet Volume 9.4 fL (8.0-11.0); Monocytes % 7.4; Platelet Count 322 x1000/uL (130-400); RBC Distribution Width 14.7 % (11.8-14.1); White Blood Cell Count 11.69 k/cumm (4.4-10.8)
[2019-12-02 07:35] VITALS: BP 146/90; PULSE 73; RESP 20; TEMP 36.6; O2SAT 96
[2019-12-02 07:51] LABS: ALT 20 U/L (16-63); AST 19 U/L (15-37); Alkaline Phosphatase 80 U/L (46-116); Anion Gap 8.8 mmol/L (3-11); BUN 5 mg/dL (7-18); Bilirubin, Total 0.7 mg/dL (0.2-1.0); CO2 24.2 mmol/L (21.0-32.0); CREATININE 0.61 mg/dL (0.70-1.30); Calcium 8.1 mg/dL (8.5-10.1); Chloride 101 mmol/L (98-107); Glucose 101 mg/dL (74-106); Potassium 3.2 mmol/L (3.5-5.1); Sodium 134 mmol/L (136-145); Total Protein 6.5 g/dL (6.4-8.2)
[2019-12-02 08:18] LABS: Lipase 5888 U/L (73-393)
[2019-12-02] MEDS: HYDROmorphone 2 MG/ML VIAL 1 MG IVP ×2 (08:31→14:35)
[2019-12-02] MEDS: Normal Saline Flush 10 ML SYR IVP ×4 (08:31→22:07)
[2019-12-02] MEDS: Methadone Liquid 10 MG/ML 80 MG PO (08:31)
--- NOTE | 2019-12-02 08:45 | PDOC.CMPRO ---
- If Service Date Differs Date of service: 12/02/19 Time of Service: 08:45 Care Management Progress Note S/O:Mark remains acute today. CM reviewed patients chart, and patient was presented at disciplinary rounds. He is receiving IV pain control and being monitored for symptoms of ETOH withdrawal. A:Mark is a 49 year old male admitted with pancreatitis and a history of ETOH use. P:Mark will be discharged home when medically ready. Anticipate he will resume substance abuse treatment as an outpatient and need no additional services. Transportation home RCT vs Family.
[2019-12-02] MEDS: MULTIVITAMIN 10 ML, THIAMINE 100 MG, FOLIC ACID 1 MG in DEXTROSE 5%-0.45% SALINE 1,000 ML 200 ML IV (08:55)
[2019-12-02] MEDS: Pantoprazole 40 MG VIAL IVP ×2 (09:37→22:06)
[2019-12-02] MEDS: POTASSIUM CHLORIDE 20 MEQ/100 ML BAG 50 MEQ IVPB ×2 (09:37→11:38)
[2019-12-02 10:01] LABS: Magnesium 1.9 mg/dL (1.8-2.4)
[2019-12-02 12:55] VITALS: RESP 18
[2019-12-02] MEDS: Normal Saline 1,000 ML 100 ML IV (14:36)
[2019-12-02 15:05] VITALS: BP 130/83; PULSE 77; RESP 17; TEMP 35.9; O2SAT 98
[2019-12-02 19:00] VITALS: BP 159/102; PULSE 76; RESP 19; TEMP 36.5; O2SAT 97
[2019-12-02] MEDS: Mylanta Suspension 30 ML CUP PO (21:00)
[2019-12-02] MEDS: Melatonin 3 MG TAB 9 MG PO (22:06)
[2019-12-02] MEDS: Docusate Sodium 100 MG CAP PO (22:06)
[2019-12-02] MEDS: Polyethylene Glycol 3350 17 GM PACKET PO (22:07)
[2019-12-02] MEDS: Nicotine 21 MG/24 HR PATCH TD (22:16)
[2019-12-03] MEDS: Normal Saline 1,000 ML 100 ML IV (00:17)
[2019-12-03 00:30] VITALS: BP 132/79; PULSE 63; RESP 16; TEMP 35.8; O2SAT 96
[2019-12-03 03:32] VITALS: BP 130/74; PULSE 63; RESP 16; TEMP 36.5; O2SAT 97
[2019-12-03] MEDS: Heparin 5,000 UNITS/ML VIAL 5000 UNITS SC (06:27)
[2019-12-03 07:37] LABS: Abs Immature Grans 0.03 k/cumm (0.0-0.09); Absolute Basophil Count 0.01 k/cumm (0.0-0.2); Absolute Eosinophil Count 0.13 k/cumm (0.0-0.7); Absolute Lymphocyte Count 1.85 k/cumm (1.2-3.4); Absolute Monocyte Count 0.92 k/cumm (0.11-0.7); Absolute Neutrophil Count 6.62 k/cumm (1.2-6.7); Basophils % 0.1; Eosinophils % 1.4; HCT 46.2 % (40.0-50.0); HGB 16.1 g/dL (13.5-17.5); Immature Grans % 0.3 %; Lymphocytes % 19.4; Mean Corp. HGB Concentration 34.8 g/dL (32.0-36.0); Mean Corpuscular Hemoglobin 30.8 pg (27.0-33.0); Mean Corpuscular Volume 88.5 fL (80-95); Mean Platelet Volume 9.6 fL (8.0-11.0); Monocytes % 9.6; Neutrophils % 69.2; Platelet Count 321 x1000/uL (130-400); RBC 5.22 m/cumm (4.50-6.00); RBC Distribution Width 14.8 % (11.8-14.1); White Blood Cell Count 9.56 k/cumm (4.4-10.8)
[2019-12-03] MEDS: Methadone Liquid 10 MG/ML 80 MG PO (08:24)
[2019-12-03 08:39] VITALS: BP 151/95; PULSE 78; RESP 20; TEMP 36.9; O2SAT 100
[2019-12-03 08:42] LABS: ALT 19 U/L (16-63); AST 15 U/L (15-37); Albumin 2.9 g/dL (3.4-5.0); Alkaline Phosphatase 77 U/L (46-116); Anion Gap 6.3 mmol/L (3-11); BUN 5 mg/dL (7-18); Bilirubin, Total 0.7 mg/dL (0.2-1.0); CO2 29.7 mmol/L (21.0-32.0); CREATININE 0.75 mg/dL (0.70-1.30); Calcium 8.4 mg/dL (8.5-10.1); Chloride 100 mmol/L (98-107); Glucose 96 mg/dL (74-106); Potassium 3.4 mmol/L (3.5-5.1); Sodium 136 mmol/L (136-145); Total Protein 6.8 g/dL (6.4-8.2)
[2019-12-03] MEDS: MULTIVITAMIN 10 ML, THIAMINE 100 MG, FOLIC ACID 1 MG in DEXTROSE 5%-0.45% SALINE 1,000 ML 200 ML IV (08:47)
[2019-12-03] MEDS: Acetaminophen 325 MG TAB PO (08:48)
[2019-12-03 09:13] LABS: Lipase 3124 U/L (73-393)
--- NOTE | 2019-12-03 11:06 | W.PM.DS.N ---
Date of service: 12/03/19 Time of Service: 11:07 DS: Diagnosis Discharge Diagnosis (1) Pancreatitis, acute: Status: Acute Asessment and Plan: improving, tolerating oral (2) Opioid dependence on agonist therapy: Status: Chronic Asessment and Plan: will continue methadone per [facility] (3) Alcohol abuse, daily use: Status: Chronic Asessment and Plan: abstinence discussed which he is motivated and states he doesn't need resources. (4) Tobacco dependence due to cigarettes: Status: Chronic (5) Depression: Status: Chronic (6) GERD (gastroesophageal reflux disease): Status: Chronic Discharge Plan Disposition Patient Disposition: HOME Condition: Fair Discharge Details Chief Complaint: Chest Pain Clinical Impression: Pancreatitis, acute Reason For Visit: ACUTE PANCREATITIS Admit Date/Time: 11/30/19 19:34 Admit Provider: Mendel Braswell Attending Provider: Mendel Braswell Primary Care Provider: Cm Neri ED Provider: Oralia Calle [facility] Course Hospital Course: This is a 49-year-old gentleman with a past medical history significant for alcohol and substance abuse who presented to the emergency department with an acute onset of abdominal pain nausea vomiting his work-up in the emergency department was consistent with acute pancreatitis. Hospitalist services was contacted he was admitted to the medical surgical unit for further management. He was placed on aggressive IV hydration with IV pain management. He slowly improved clinically despite his lipase continuing to rise he remained even afebrile and hemodynamically stable. His diet was advanced to clears which he tolerated well. He was not using any more IV narcotics for pain management and diet was further advanced. He states he feels at his baseline and that he is motivated to refrain from alcohol use on discharge. He has been discharged to home with no changes in his previous medications.He will follow-up outpatient with his primary care provider or return sooner for new or worsening symptoms. His case and discharge plan has been discussed with Dr. Cole who is in agreement Home Meds and New Rx's Prescriptions: Continued pantoprazole [Protonix] 40 mg Tablet,Delayed Release (Dr/Ec) 40 mg PO DAILY RF: 0 bupropion HCl [Wellbutrin XL] 300 mg Tablet Extended Release 24 Hr 300 mg PO QAM RF: 0 methadone 40 mg Tablet,Soluble 80 mg PO DAILY RF: 0 Discharge Instructions Instructions: Pancreatitis (DC) Additional Instructions: do not drink alcohol. take medications as prescribed. clear fluids, advance diet as tolerated. Stand Alone Forms: Nursing Discharge Form Referrals: Roxanna Lopez [NURSE PRACTITIONER] - 12/14/19 9:50 am Activity:: Activity as Tolerated Equipment/Supplies:: No Equipment Needed Diet:: As Tolerated Discharge Orders Discharge Orders: Discharge Order (Routine); Ordered 12/03/19 Ordered By: Jordana Mcgovern Discharge Data Discharge Date/Time-TO BE ENTERED AT DEPARTURE: 12/03/19 13:24 DS: Summary Status at Discharge Functional status at discharge: independent ambulation Overall status at discharge: patient is progressing back to baseline Mental Status: mental status grossly normal Speech and Movement: speech and movement normal Mood: congruent mood Affect: normal affect Exam Const General: cooperative, acute distress moderate, not anxious, not combative and disheveled Nutritional Appearance: average body habitus Orientation: awake and oriented x3 HENMT Head: normal to inspection, normocephalic and atraumatic Mouth: moist mucous membranes (dry) Resp Effort & Inspection: normal respiratory effort Auscultation: clear to auscultation bilaterally and diminished lung sounds Cardio Rate: regular rate and not tachycardic Rhythm: regular rhythm GI Inspection: normal to inspection Palpation: soft, not firm, no guarding and not rigid Auscultation: normal bowel sounds Skin General skin exam: other (multiple tatoos. ) Neuro General: patient alert, patient awake and patient oriented x3 Cranial Nerves: CN's II-XI intact bilaterally Cognition: normal cognition Speech: speech normal Gait: normal gait Motor: muscle tone normal throughout Extrem General: normal to inspection and full ROM Psych Appearance: disheveled Mental Status: mental status grossly normal Speech and Movement: speech and movement normal Mood: congruent mood Affect: normal affect Attitude: cooperative Thought Process: normal Thought Content: normal Insight: insight good Judgment: judgment good DS: Data Vitals/I&O Vitals and I&O: Vital Signs Temperature 36.9 C 12/03/19 08:39 Temperature Source Tympanic 12/03/19 08:39 Pulse 78 12/03/19 08:39 Pulse Rhythm Regular 12/03/19 08:30 Pulse 75 11/30/19 19:40 Respiratory Rate 20 12/03/19 08:39 Respiratory Effort Non-Labored 12/03/19 08:30 Respiratory Depth Normal 12/03/19 08:30 Respiratory Pattern Normal 12/03/19 08:30 Blood Pressure 151/95 H 12/03/19 08:39 Blood Pressure Mean 109 11/30/19 19:31 Blood Pressure Position Sitting 11/30/19 15:39 Pulse Oximetry 100 12/03/19 08:39 Oxygen Delivery Method Room Air 12/03/19 08:39 Oxygen Flow Rate 0 12/03/19 08:39 Pain Level 3 12/03/19 08:48 Intake & Output 12/02/19 12/02/19 12/03/19 11:59 23:59 11:59 Intake Total 1046.667 / 4347.867 3301.2 / 4347.867 2941.666 / 2941.666 Output Total 2200 / 2600 400 / 2600 1400 / 1400 Balance -1153.333 / 6887.826 5826.2 / 3598.803 9211.666 / 1541.666 Weight 74.2 kg 72.9 kg Intake: IV 1046.667 / 3057.867 2010.2 / 3057.867 2011.666 / 2010.666 Oral 1290 / 1290 930 / 930 Output: Urine 2200 / 2600 400 / 2600 1400 / 1400 Other: Urine Color Yellow Yellow Yellow Urine Appearance Clear Clear Clear Stool Size Small Small Stool Characteristics Formed Liquid Brown Brown Voiding Methods Urinal Urinal Urinal Data Completed and Pending Labs on day of discharge: Labs from last 24 hours 12/03/19 12/03/19 06:56 06:56 WBC 9.56 RBC 5.22 Hgb 16.1 Hct 46.2 MCV 88.5 MCH 30.8 MCHC 34.8 RDW 14.8 H Plt Count 321 MPV 9.6 Immature Gran % 0.3 Neutrophils % 69.2 Lymphocytes % 19.4 Monocytes % 9.6 Eosinophils % 1.4 Basophils % 0.1 Absolute Neutrophils 6.62 Absolute Lymphocytes 1.85 Absolute Monocytes 0.92 H Absolute Eosinophils 0.13 Absolute Basophils 0.01 Sodium 136 Potassium 3.4 L Chloride 100 Carbon Dioxide 29.7 Anion Gap 6.3 BUN 5 L Creatinine 0.75 Estimated GFR/1.73 m2 >= 60.00 Glucose 96 Calcium 8.4 L Total Bilirubin 0.7 AST 15 ALT 19 Alkaline Phosphatase 77 Total Protein 6.8 Albumin 2.9 L Lipase 3124 H [facility] Medical History (Updated 12/01/19 @ 14:53 by Jordana Mcgovern NP) Alcohol abuse, daily use (Chronic) Depression (Chronic) Opioid dependence on agonist therapy (Chronic) Tobacco dependence due to cigarettes (Chronic) Social History Smoking/Tobacco Use Status: Current every day Tobacco Type: cigarettes Alcohol Intake: current Alcohol Intake frequency: 3 or more drinks per day Alcohol type: beer Drug use: Daily Substance use type: marijuana and crack/cocaine Do you feel safe at home: Yes Do you feel safe in your relationship?: Yes
[2019-12-03 12:03] VITALS: BP 136/94; PULSE 85; RESP 18; TEMP 36.5; O2SAT 99
--- NOTE | 2019-12-03 12:40 | CMDISCH_ITS ---
- If Service Date Differs Date of service: 12/03/19 Time of Service: 12:40 LACE Index Scoring Tool - Questions: Length of Stay (in days): 3 Acuity (Admit via E.D.?): Yes E.D. Visits: 1 - Answers: Total Score: 7 Risk of Readmission: Low Risk Care Management Discharge Reason for Hospitalization: Pancreatitis Discharge Plan: Mark is being discharged today, CM referred patient to [facility] for community case management and oil recovery unit operator who will contact patient prior to discharge. CM spoke with Eunice (oil recovery unit operator). Mark was arranged a ride through [facility] by MARYLOU and provided a last dose letter for [facility]. He is interested in recovery and states he will engage with outpatient services. CM also contacted [facility] and requested he be placed back on the schedule for Friday's transport to the [facility] clinic. Patient/Family Education Needs: Discharge education, limitations and follow up plan of care including ask me three and self management. Services Needed at Discharge: Transportation
--- NOTE | 2019-12-03 12:40 | PDOC.CMDIS ---
- If Service Date Differs Date of service: 12/03/19 Time of Service: 12:40 LACE Index Scoring Tool - Questions: Length of Stay (in days): 3 Acuity (Admit via E.D.?): Yes E.D. Visits: 1 - Answers: Total Score: 7 Risk of Readmission: Low Risk Care Management Discharge Reason for Hospitalization: Pancreatitis Discharge Plan: Mark is being discharged today, CM referred patient to [facility] for community case management and riding coach who will contact patient prior to discharge. CM spoke with Eunice (riding coach). Mark was arranged a ride through [facility] by MARYLOU and provided a last dose letter for [facility]. He is interested in recovery and states he will engage with outpatient services. CM also contacted [facility] and requested he be placed back on the schedule for Friday's transport to the [facility] clinic. Patient/Family Education Needs: Discharge education, limitations and follow up plan of care including ask me three and self management. Services Needed at Discharge: Transportation
== END 2019-12-03 13:24 | disposition home or self-care (01) | DRG 439 ==
LOC: ER 20:25 → MS 20:29
PROVIDERS: Emergency Medicine; Nurse Practitioner Acute Care; Admitting Provider Family Medicine; Emergency Provider Physician Assistant; PCP Family Medicine; Visit Provider Family Medicine
DX: K85.20 Alcohol induced acute pancreatitis without necrosis or infection (principal); F11.20 Opioid dependence, uncomplicated; F10.10 Alcohol abuse, uncomplicated; F17.210 Nicotine dependence, cigarettes, uncomplicated; K21.9 Gastro-esophageal reflux disease without esophagitis; F32.9 Major depressive disorder, single episode, unspecified
CPT/HCPCS: 36415; 71275; 74177; 80053; 80307; 83690; 85027; 93005; 96361; 96365; 96366; 96375; 99223; 99233; 99239; 99285; U0003; 71046; 76700; 81003; 83735; 84100; 84484; 85025; 85379; 86140; 93010; J1644; J2060; J3010; J3480; J3490

== ENCOUNTER 2022-01-07 07:37 | Inpatient (IN) | payer MEDICAID, SELFPAY ==
[2022-01-07] VITALS (37 sets, daily range): BP systolic 60–172; BP diastolic 45–102; PULSE 16–139; RESP 6–75; TEMP 36–37.2; O2SAT 91–100
--- NOTE | 2022-01-07 07:45 | RT.EKG_ITS ---
APPROVED REPORT Exam: Resting ECG Reason for Exam: epigastric pain Patient Location: E HR:71 bpm ECG Measurements Heart Rate 71 AXIS DE 153 P 76 QRSd 93 QRS 67 QT 449 T 33 QTc 486 Conclusion Sinus rhythm...normal P axis, V-rate 60- 99 sinus rhythm at 71, normal axis, no acute ischemic changes, no STEMI, nondiagnostic EKG
--- NOTE | 2022-01-07 08:05 | W.ED.GENAD ---
Discharge Plan Disposition Patient Disposition: [facility] INPATIENT Condition: Improving Discharge Details Chief Complaint: Abd Prob Clinical Impression: Pancreatitis, acute Admit Date/Time: 01/07/22 10:25 Admit Provider: Itzel Cole Attending Provider: Itzel Cole Primary Care Provider: Cm Neri ED Provider: Pushpa Dwyer Discharge Instructions Activity:: Activity as Tolerated Equipment/Supplies:: No Equipment Needed Diet:: As Tolerated Discharge Orders Discharge Orders: Discharge Order (Routine); Ordered 01/09/22 Ordered By: Jordana Mcgovern Discharge Data Discharge Date/Time-TO BE ENTERED AT DEPARTURE: 01/07/22 11:41 Medical Decision Making Mark Ross is a 51-year-old man with a history of GERD, opiate use disorder on methadone, alcohol use disorder drinking at least 24 ounces of beer per day presenting to the emergency department with upper abdominal pain. Patient reports the pain began this morning, is sharp, and constant. Patient reports that he ate has had similar pain in the past 1 or 2 years ago, when he was diagnosed with pancreatitis. He denies other similar episodes. He denies any other pain. Denies fever, cough, shortness of breath, vomiting, diarrhea, constipation, melena, hematochezia. Patient reports that he did have dark stool approximately 1 month ago when he was taking a significant amount of ibuprofen for wrist injury, but reports that dark stool resolved when he stopped taking the ibuprofen. On exam patient is well and nontoxic-appearing. There is epigastric and left upper quadrant tenderness to palpation, negative Malhotra sign, no peritoneal signs. Patient does have left CVA tenderness to palpation that he reports was present during his prior episode of pancreatitis. Concern for pancreatitis, gastritis, peptic ulcer disease, electrolyte derangement, other. Exam/history at this time is not consistent with acute aortic pathology, sepsis, acute coronary syndrome, pulmonary embolism. Plan for IV placement, screening labs, screening EKG, IV Dilaudid, continuous pulse ox. Labs reviewed, WBC 7.8, hemoglobin 14.5, anion gap 10.4, creatinine 0.7, lipase 7360. I discussed patient presentation results with Dr. Cole, hospitalist, who requests CT abdomen/pelvis prior to accepting for admission. Plan for CT. CT shows severe pancreatitis, no gallstones. Dr. Cole excepted patient for admission. Medical Records Medical records reviewed: Yes I reviewed the patient's medical records. Imaging Data Radiologic Study: Radiologist's impression: EXAM:? CT ABDOMEN ? PELVIS W CLINICAL HISTORY: ? pancreatitis.? TECHNIQUE:? Imaging Protocol: Axial computed tomography images with coronal and sagittal reformatted images were created and reviewed CONTRAST MATERIAL:? Intravenous: Omnipaque 350 Contrast volume:100 ml Oral:? no COMPARISON:? CT CT CHEST PE ABD ? PELVIS W from 11/30/2019 FINDINGS: ABDOMEN: Lung Bases: Normal where visualized. Liver: Normal density. No measurable mass. Gallbladder and biliary tract: No gallbladder wall thickening.? No calcified stones.? No radiodense calculus.? Mild dilation common bile duct and pancreatic duct.. ? Pancreas: Enlargement of the head with severe inflammation.? Large amount surrounding fluid is well as fluid extending into pelvis.? No focal walled-off collection.? No abnormal gas bubbles.? Pancreas remains perfused.? No hemorrhage..? No visible mass.? Spleen: Normal. Kidneys: Normal size, contour and axis. No radiodense stones or obstructive uropathy. No masses seen. Adrenal glands: No masses seen. Abdominal Aorta: Abdominal portion non-dilated. Calcification. PELVIS:? Bladder: Mild wall thickening versus under distension.? No calculi.No focal mass. Bowel: No obstruction or bowel wall thickening. Appendix normal. Peritoneal cavity: No ascites, collection or mesenteric inflammatory response. Bones: Degenerative disc changes.? Reproductive organs: Within normal limits. Lymph nodes: Unremarkable.? Impression: Severe pancreatitis with surrounding fluid as well as fluid extending into the pelvis.? Mild dilatation of the common bile duct and pancreatic duct.? No visible gallstones or evidence of acute cholecystitis. Lab Data Lab results reviewed: Yes I reviewed the patient's lab results. Labs: Laboratory Tests Range/Units 01/07/22 01/07/22 01/07/22 08:05 08:05 09:40 WBC (4.4-10.8) 10^3/uL 7.80 RBC (4.36-5.78) 10^6/uL 4.64 Hgb (13.5-17.5) g/dL 14.5 Hct (40.0-50.0) % 41.2 MCV (80-95) fL 89 MCH (27.0-33.0) pg 31.3 MCHC (32.0-36.0) % 35.2 RDW (11.8-14.1) % 12.4 Plt Count (130-400) 10^3/uL 305 MPV (8.0-11.0) fL 9.2 Immature Gran % 0.3 Neutrophils % 77.9 Lymphocytes % 14.4 Monocytes % 6.5 Eosinophils % 0.4 Basophils % 0.5 Nucleated RBC % (0.0-0.3) % 0.0 Absolute Neutrophils (1.2-6.7) 10^3/uL 6.08 Absolute Lymphocytes (1.2-3.4) 10^3/uL 1.12 L Absolute Monocytes (0.1-0.8) 10^3/uL 0.51 Absolute Eosinophils (0.0-0.7) 10^3/uL 0.03 Absolute Basophils (0.0-0.2) 10^3/uL 0.04 Sodium (136-145) mmol/L 133 L Potassium (3.5-5.1) mmol/L 3.7 Chloride (98-107) mmol/L 97 L Carbon Dioxide (21.0-32.0) mmol/L 25.6 Anion Gap (3-11) mmol/L 10.4 BUN (7-18) mg/dL 10 Creatinine (0.70-1.30) mg/dL 0.7 Estimated GFR/1.73 m2 (mL/min/1.73m2) >= 60.00 Glucose (74-106) mg/dL 163 H Calcium (8.5-10.1) mg/dL 9.0 Total Bilirubin (0.2-1.0) mg/dL 0.4 AST (15-37) U/L 25 ALT (16-63) U/L 34 Alkaline Phosphatase (46-116) U/L 119 H Total Protein (6.4-8.2) g/dL 8.2 Albumin (3.4-5.0) g/dL 4.0 Lipase (73-393) U/L 7360 H Urine Color (Yellow) Urine Clarity (Clear) Urine pH (5-8) Ur Specific Ebony (1.005-1.025) Urine Protein (Negative) mg/dL Urine Ketones (Negative) mg/dL Urine Blood (Negative) Urine Nitrite (Negative) Urine Bilirubin (Negative) Urine Urobilinogen (Up TO 0.2) EU/dL Ur Leukocyte Esterase (Negative) Urine RBC (0-2) HPF Urine WBC (0-5) HPF Ur Epithelial Cells (Negative) HPF Urine Crystals (Negative) HPF Urine Bacteria (Negative) HPF Urine Casts (Negative) LPF Urine Mucus (Negative) Ur Culture Indicated? Urine Glucose (Negative) mg/dL COVID-19 Source Nasal/Nares Range/Units 01/07/22 09:48 WBC (4.4-10.8) 10^3/uL RBC (4.36-5.78) 10^6/uL Hgb (13.5-17.5) g/dL Hct (40.0-50.0) % MCV (80-95) fL MCH (27.0-33.0) pg MCHC (32.0-36.0) % RDW (11.8-14.1) % Plt Count (130-400) 10^3/uL MPV (8.0-11.0) fL Immature Gran % Neutrophils % Lymphocytes % Monocytes % Eosinophils % Basophils % Nucleated RBC % (0.0-0.3) % Absolute Neutrophils (1.2-6.7) 10^3/uL Absolute Lymphocytes (1.2-3.4) 10^3/uL Absolute Monocytes (0.1-0.8) 10^3/uL Absolute Eosinophils (0.0-0.7) 10^3/uL Absolute Basophils (0.0-0.2) 10^3/uL Sodium (136-145) mmol/L Potassium (3.5-5.1) mmol/L Chloride (98-107) mmol/L Carbon Dioxide (21.0-32.0) mmol/L Anion Gap (3-11) mmol/L BUN (7-18) mg/dL Creatinine (0.70-1.30) mg/dL Estimated GFR/1.73 m2 (mL/min/1.73m2) Glucose (74-106) mg/dL Calcium (8.5-10.1) mg/dL Total Bilirubin (0.2-1.0) mg/dL AST (15-37) U/L ALT (16-63) U/L Alkaline Phosphatase (46-116) U/L Total Protein (6.4-8.2) g/dL Albumin (3.4-5.0) g/dL Lipase (73-393) U/L Urine Color (Yellow) Yellow Urine Clarity (Clear) Clear Urine pH (5-8) 7.5 Ur Specific Ebony (1.005-1.025) 1.025 Urine Protein (Negative) mg/dL Trace H Urine Ketones (Negative) mg/dL Negative Urine Blood (Negative) Negative Urine Nitrite (Negative) Negative Urine Bilirubin (Negative) Negative Urine Urobilinogen (Up TO 0.2) EU/dL 0.2 Ur Leukocyte Esterase (Negative) Negative Urine RBC (0-2) HPF Negative Urine WBC (0-5) HPF Negative Ur Epithelial Cells (Negative) HPF Rare Urine Crystals (Negative) HPF Negative Urine Bacteria (Negative) HPF Negative Urine Casts (Negative) LPF 0-2 Hyaline Urine Mucus (Negative) Negative Ur Culture Indicated? No Urine Glucose (Negative) mg/dL Negative COVID-19 Source ECG Data Attestation: I personally reviewed and interpreted this ECG (s) as follows: Interpretation: EKG shows sinus rhythm at 71, normal axis, no acute ischemic changes, no STEMI, nondiagnostic EKG HPI General Mode of arrival: ambulatory. Date/Time Provider Initiated Documentation: 01/07/22 07:54. Limitations to Documentation: no limitations. Information obtained by: patient, RN notes reviewed and old records reviewed. HPI Narrative: Mark Ross is a 51-year-old man with a history of GERD, opiate use disorder on methadone, alcohol use disorder drinking at least 24 ounces of beer per day presenting to the emergency department with upper abdominal pain. Patient reports the pain began this morning, is sharp, and constant. Patient reports that he ate has had similar pain in the past 1 or 2 years ago, when he was diagnosed with pancreatitis. He denies other similar episodes. He denies any other pain. Denies fever, cough, shortness of breath, vomiting, diarrhea, constipation, melena, hematochezia. Patient reports that he did have dark stool approximately 1 month ago when he was taking a significant amount of ibuprofen for wrist injury, but reports that dark stool resolved when he stopped taking the ibuprofen. Related Data Home Medications Medication Instructions Recorded Confirmed methadone 10 mg/mL oral 90 mg PO DAILY 01/07/22 01/07/22 concentrate (Methadone Intensol) ketorolac 10 mg tablet 10 mg PO Q6H PRN 5 days #12 tabs 01/09/22 pantoprazole 40 mg tablet,delayed 40 mg PO DAILY #30 tabs 01/09/22 release (Protonix) Previous Rx's Medication Instructions Recorded ketorolac 10 mg tablet 10 mg PO Q6H PRN 5 days #12 tabs 01/09/22 pantoprazole 40 mg tablet,delayed 40 mg PO DAILY #30 tabs 01/09/22 release (Protonix) Allergies Allergy/AdvReac Type Severity Reaction Status Date / Time No Known Allergies Allergy Unverified 01/07/22 07:47 General Stated Complaint: Abd Prob MICKIE: 2 Review of Systems Narrative: Constitutional: denies fevers Eyes: denies eye pain ENT: denies ear pain, dental pain, sore throat Cardiovascular: denies chest pain, edema Respiratory: denies SOB, cough GI: denies constipation, melena, hematochezia, vomiting, diarrhea, reports abdominal pain : denies flank pain MSK: denies back pain, neck pain, arthralgias, myalgias Skin: denies rash Neuro: denies headaches, numbness, weakness PFSH All Active Problems (Updated 01/09/22 @ 21:44 by Pushpa Dwyer MD) GERD (gastroesophageal reflux disease) (Chronic) Discharge planning issues (Acute) DVT prophylaxis (Acute) Depression (Chronic) Tobacco dependence due to cigarettes (Chronic) Alcohol abuse, daily use (Chronic) Opioid dependence on agonist therapy (Chronic) Pancreatitis, acute (Acute) Medical History Pancreatitis Family History Maternal Uncle Heart disease Diabetes Mother Diabetes Maternal Uncle Cancer prostate cancer Social History Smoking/Tobacco Use Status: Current every day Tobacco Type: cigarettes Smoking risk assessment performed?: Yes Alcohol Intake: current Alcohol Intake frequency: 3 or more drinks per day Alcohol type: beer Drug use: Daily Substance use type: marijuana and crack/cocaine Do you feel safe at home: Yes Do you feel safe in your relationship?: Yes Exam Narrative Exam Narrative: Constitutional: well and [id number], pleasant, conversing normally HENT: head atraumatic/normocephalic/normal inspection, mucous membranes moist Eyes: conjunctiva normal, sclera normal, pupils 3mm b/l Neck: no stridor, normal ROM, trachea midline Chest: normal inspection Resp: normal work of breathing, speaking in full sentences Cardio: normal rate, normal rhythm GI: abdomen soft, left upper quadrant and epigastric tenderness to palpation, no right upper quadrant tenderness, negative Malhotra sign, no lower quadrant tenderness palpation bilaterally, no rebound, no guarding, non-distended Back: normal inspection, no rash, positive left CVA tenderness to palpation (patient reports he had pain in this area during his prior episode of pancreatitis), no right CVA tenderness to palpation Skin: warm, dry, normal color, no rash Neuro: alert, not altered, grossly non-focal, normal tone Ext: no edema Psych: normal mood, normal affect, normal behavior Course Vital Signs Vital signs: Vital Signs Temperature 36 C L 01/07/22 07:41 Pulse 16 L 01/07/22 07:41 Respiratory Rate 75 H 01/07/22 07:41 Blood Pressure 165/97 H 01/07/22 07:41 Pulse Oximetry 100 01/07/22 07:41 Temperature 36 C L 01/07/22 07:41 Temperature Source Temporal Artery Scan 01/07/22 07:41 Pulse 16 L 01/07/22 07:41 Respiratory Rate 75 H 01/07/22 07:41 Respiratory Effort 01/07/22 07:41 Blood Pressure 165/97 H 01/07/22 07:41 Blood Pressure Position Supine 01/07/22 07:41 Pulse Oximetry 100 01/07/22 07:41 Oxygen Delivery Method Room Air 01/07/22 07:41 Oxygen Flow Rate 0 01/07/22 07:41 Pain Level 8 01/07/22 07:41
[2022-01-07 08:16] LABS: Abs Immature Grans 0.02 10^3/uL (0.0-0.06); Absolute Basophil Count 0.04 10^3/uL (0.0-0.2); Absolute Eosinophil Count 0.03 10^3/uL (0.0-0.7); Absolute Lymphocyte Count 1.12 10^3/uL (1.2-3.4); Absolute Monocyte Count 0.51 10^3/uL (0.1-0.8); Absolute Neutrophil Count 6.08 10^3/uL (1.2-6.7); Basophils % 0.5; Eosinophils % 0.4; HCT 41.2 % (40.0-50.0); HGB 14.5 g/dL (13.5-17.5); Immature Grans % 0.3; Lymphocytes % 14.4; MCH 31.3 pg (27.0-33.0); MCHC 35.2 % (32.0-36.0); MCV 89 fL (80-95); MPV 9.2 fL (8.0-11.0); Monocytes % 6.5; Neutrophils % 77.9; Platelet Count 305 10^3/uL (130-400); RBC 4.64 10^6/uL (4.36-5.78); RDW 12.4 % (11.8-14.1); RDW-SD 40.6 fL
[2022-01-07] MEDS: Normal Saline 1,000 ML 1000 ML IV (08:25)
[2022-01-07 08:31] LABS: ALT 34 U/L (16-63); AST 25 U/L (15-37); Alkaline Phosphatase 119 U/L (46-116); Anion Gap 10.4 mmol/L (3-11); BUN 10 mg/dL (7-18); Bilirubin, Total 0.4 mg/dL (0.2-1.0); CO2 25.6 mmol/L (21.0-32.0); CREATININE 0.7 mg/dL (0.70-1.30); Chloride 97 mmol/L (98-107); Glucose 163 mg/dL (74-106); Potassium 3.7 mmol/L (3.5-5.1); Sodium 133 mmol/L (136-145); Total Protein 8.2 g/dL (6.4-8.2)
[2022-01-07 08:46] LABS: Lipase 7360 U/L (73-393)
[2022-01-07] MEDS: HYDROmorphone 2 MG/ML VIAL 0.5 MG IVP (09:08)
[2022-01-07 09:51] LABS: Source Nasal/Nares
[2022-01-07 09:57] LABS: Bilirubin Negative (Negative); Blood Negative (Negative); Clarity Clear (Clear); Glucose Negative (Negative); Ketones Negative (Negative); Leukocyte Esterase Negative (Negative); Nitrite Negative (Negative); Specific Gravity 1.025 (1.005-1.025); Urobilinogen 0.2 EU/dL (Up TO 0.2); pH 7.5 (5-8)
[2022-01-07 10:09] LABS: Bacteria Negative HPF (Negative); C & S Indicated? No; Casts 0-2 Hyaline LPF (Negative); Crystals Negative HPF (Negative); Epithelial Cells Rare HPF (Negative); Mucus Negative (Negative); RBC Negative HPF (0-2); WBC Negative HPF (0-5)
--- NOTE | 2022-01-07 10:10 | DI.CT_ITS ---
Exam(s) CT ABDOMEN PELVIS W EXAM: CT ABDOMEN PELVIS W CLINICAL HISTORY: pancreatitis. TECHNIQUE: Imaging Protocol: Axial computed tomography images with coronal and sagittal reformatted images were created and reviewed CONTRAST MATERIAL: Intravenous: Omnipaque 350 Contrast volume:100 ml Oral: no COMPARISON: CT CT CHEST PE ABD PELVIS W from 11/30/2019 FINDINGS: ABDOMEN: Lung Bases: Normal where visualized. Liver: Normal density. No measurable mass. Gallbladder and biliary tract: No gallbladder wall thickening. No calcified stones. No radiodense c alculus. Mild dilation common bile duct and pancreatic duct.. Pancreas: Enlargement of the head with severe inflammation. Large amount surrounding fluid is well a s fluid extending into pelvis. No focal walled-off collection. No abnormal gas bubbles. Pancreas r emains perfused. No hemorrhage.. No visible mass. Spleen: Normal. Kidneys: Normal size, contour and axis. No radiodense stones or obstructive uropathy. No masses seen. Adrenal glands: No masses seen. Abdominal Aorta: Abdominal portion non-dilated. Calcification. PELVIS: Bladder: Mild wall thickening versus under distension. No calculi.No focal mass. Bowel: No obstruction or bowel wall thickening. Appendix normal. Peritoneal cavity: No ascites, collection or mesenteric inflammatory response. Bones: Degenerative disc changes. Reproductive organs: Within normal limits. Lymph nodes: Unremarkable. Impression: Severe pancreatitis with surrounding fluid as well as fluid extending into the pelvis. Mild dilatati on of the common bile duct and pancreatic duct. No visible gallstones or evidence of acute cholecyst itis. RADIATION DOSE DELIVERED: 627.49mGy.cm Total DLP DATA REPOSITORY: All CT scans at this facility are submitted to the National Radiology Data Registry (NRDR) Dose Index Registry (DIR) with the [employer] (ACR). RADIATION OPTIMIZATION: All CT scans at this facility use at least one of these dose optimization te chniques: automated exposure control; mA and/or kV adjustment per patient size (includes targeted exa ms where dose is matched to clinical indication); or iterative reconstruction.
[2022-01-07] MEDS: Omnipaque 350 MG/ML 100 ML BTL IJ (10:13)
[2022-01-07 10:45] LABS: COVID-19 PCR Negative (Negative)
--- OUTSIDE RECORDS SUMMARY | 2022-01-07 11:49 | XMS_ITS | Encounter Summary ---
:[address] [facility] Address [address] [place] [address] Care Team Providers Name Role Phone Cm Neri MD Primary Care Provider Encounter Details Date Type Department Care Team Description 11/30/2019 Lab Requisition [facility] Outr Resulting Lab, Pathology & Laboratory Provider [facility] [address], [place] [id number] Social History Tobacco Use Types Packs/Day Years Used Date Current Every Day Smoker Cigarettes 1 32 Smokeless Tobacco: Never Used Alcohol Use Standard Drinks/Week Comments No 0 (1 standard drink = 0.6 oz pure alcoho l) Sex Assigned at Date Recorded Not on file documented as of this encounter Functional Status Functional Status Response Date of Assessment Are you deaf or do you have serious difficulty hearing? No 01/14/2018 Are you blind or do you have serious difficulty seeing, No 01/14/2018 even when wearing glasses? Do you have serious difficulty walking or climbing No 01/14/2018 stairs? (5 years old or older) Do you have difficulty dressing or bathing? (5 years old No 01/14/2018 or older) Because of a physical, mental, or emotional condition, do No 01/14/2018 you have difficulty doing errands alone such as visiting a doctor's office or shopping? (15 years old or older) Cognitive Status Response Date of Assessment Because of a physical, mental, or emotional condition, do No 01/14/2018 you have serious difficulty concentrating, remembering, or making decisions? (5 years old or older) documented as of this encounter Plan of Treatment Not on filedocumented as of this encounter Procedures Procedure Name Priority Date/Time Associated Diagnosis Comme nts COVID-19 TEST [facility] Today 11/30/2019 20:30 LAB PCR EDT COVID-19 TESTING Routine 11/30/2019 20:30 Results for this EDT procedure are i n the results section. documented in this encounter Results COVID-19 TEST [facility] PCR (11/30/2019 20:30 EDT) Specimen Swab - Entire nasopharynx (body structur e) Performing Organization Address City/[facility]/ZIP Code Phon e Number [facility] [address] [place] [address] SERVICES COVID-19 TESTING (11/30/2019 20:30 EDT) COVID-19 rt-PCR Negative Negative [facility] Result Comment: [facility] This test has not been FDA c leared or approved. This test has been authorized by FDA under an EUA for use by authorized laboratories. This test has been authorized only for detection of nucleic acid fro SERVICES m 2019-nCoV, not for any oth er viruses or pathogens. This test is only authorized for the duration of the declaration that circumstances exist justifying the authorization of emergency use of in vitro d iagnostic tests for detectio n and/or diagnosis of 2019-nCoV under section 564(b)(1) of Act, 21 U.S.C ?? 360bbb-3(b) (1), unless the authorization is terminated or revoked sooner. Negative results do not prec lude 2019-nCoV infection and should not be used as the sole basis for treatment or other patient management decisions. Negative results must be combined with clinical observa tions, patient history, and epidemiological informatio n. Performed on the [employer] Fusion instrument Performing Lab [place] [facility] Lab [facility] SERVICES Specimen Swab - Entire nasopharynx (body structur e) Performing Organization Address City/[facility]/ZIP Code Phon e Number [facility] [address] [place] [address] SERVICES documented in this encounter Visit Diagnoses Not on filedocumented in this encounter Care Teams Acid Tank Cleaner Relationship Specialty Start Date End Date Cm Neri MD PCP - General 01/13/18 documented as of this encounter
--- OUTSIDE RECORDS SUMMARY | 2022-01-07 11:49 | XMS_ITS | CCD ---
:1970 Author Care Team Providers Name Role Phone EILEEN TAPIA Attending Physician Unavailable CHRISTEL GUEVARA Er Physician 1 Unavailable EPIFANIO Medrano Registered Nurse Unavailable Vital Signs Vital Sign Value Unit Date/Time Recent/Initial? BMI (Body Mass Index) 18.13 kg/m^2 12/22/2021 10:58 In itial VS Weight Measured 165 lbs 12/22/2021 10:58 Initial VS Height 80 in 12/22/2021 10:58 Initial VS BSA (Body Surface Area) 2.06 m^2 12/22/2021 10:58 Initial VS BP Systolic 146 mmHg 12/22/2021 10:58 Initial VS BP Diastolic 105 mmHg 12/22/2021 10:58 Initial VS Respiratory Rate 17 bpm 12/22/2021 10:58 Initial VS Heart Rate 80 bpm 12/22/2021 10:58 Initial VS O2 % BldC Oximetry 100 % 12/22/2021 10:58 Initi al VS Body Temperature 36.4 degrees 12/22/2021 10:58 Initial VS Allergies Allergy Code Allergy Type Reaction Status No Known Allergies 0 No known allergies Act trista Procedures Unknown or Not Available. History of Immunizations Unknown or Not Available. Problems Problem Code Start Date Resolved Date Status Depression [id number] 12/22/2021 Resolved History of opioid abuse [id number] 12/22/2021 R esolved Results Unknown or Not Available. Active Medications Unknown or Not Available. Medications Administered During Visit Unknown or Not Available. Encounters Encounter Diagnosis Diagnosis Code Start Date Unspecified fracture of the lower end of left radius, [id number] 12/22/2021 initial encounter for closed fracture Social History Smoking Status Code Start Date End Date Current every day smoker [id number] Patient Decision Aids Unknown or Not Available. Discharge Instructions You were admitted to [facility] on 12/22/2021 10:49 with a principal diagnosis of Unspecified fracture of the lower end of left radius, initial encounter for closed fracture You were discharged from [facility] on 12/22/2021 11:50 Should you have any questions prior to d ischarge, please contact a member of your healthcare team. If you have left the ho spital and have any questions, please contact your primary care physician. Chief Complaint and Reason For Visit Chief Complaint Date of Onset LEFT WRIST INJURY Function Status Unknown or Not Available. Plan of Care Unknown or Not Available. Referral/Transition of Care Unknown or Not Available.
--- OUTSIDE RECORDS SUMMARY | 2022-01-07 11:49 | XMS_ITS | Encounter Summary ---
:1970 Author Organization [facility] Address [address] [place] [address] Care Team Providers Name Role Phone Cm Neri MD Primary Care Provider Reason for Referral Consult (Routine) - Closed Specialty Diagnoses / Referred By Contact Referred To Contact Procedures Gastroenterology and Diagnoses Upper GI bleed Acute blood loss anemia Elida-Goodrich tear Debbie Singh, Mp5 Gi Hepatology MD [address] [place] [id number] [place], [place] [id number] [place], [place] Fax: [phone] Referral ID Status Reason Start Date Expiration Date Visits V isits Requested Authorized [id number] Closed Specialty 01/16/2018 1 1 Services Required Question Answer Reason for Request: elida-goodrich tear with asso ciate acute blood loss anemia Expected Discharge Date (Inpatient Only): 01/16/2018 ollow Up (Routine) - Receiving Office to Obtain Authorization Specialty Diagnoses / Procedures Referred By Contact Refer red To Contact Diagnoses Acute blood loss anemia Elida-Goodrich tear Upper GI bleed Hernandez Bills MD [address] [place] [id number] Referral ID Status Reason Start Expiration Visits Visits Date Date Requested Authorized [id number] Receiving Office Continuity of 1 1 to Obtain Care 8 Authorization Question Answer Reason for Request: hospital follow up for GI bl eed, CBC Expected Discharge Date (Inpatient Only): 01/16/2018 Reason for Visit Reason Comments GI Bleeding see transfer chart black sto ols/n/v blood Encounter Details Date Type Department Care Team Description 01/13/2018 - [facility] La Catalan MD [address] [facility], [address] [place] [address] Upper GI bleed (Primary Dx); 01/16/2018 Encounter General Surgery Alvaro Haney MD [address] [address] Acute blood loss anemia; Unit Teleron, Jody Rdz MD [address] [place] [address] Elida-Goodrich tear [address] [place] [address] Social History Tobacco Use Types Packs/Day Years Used Date Current Every Day Smoker Cigarettes 1 32 Smokeless Tobacco: Never Used Tobacco Cessation: Ready to Quit: No; Co unseling Given: Yes Alcohol Use Standard Drinks/Week Comments No 0 (1 standard drink = 0.6 oz pure alcoho l) Sex Assigned at Date Recorded Not on file documented as of this encounter Last Filed Vital Signs Vital Sign Reading Time Taken Comments Blood Pressure 105/60 01/16/2018 0622 EDT Pulse 83 01/15/2018 1615 EDT Temperature 36.4 ??C (97.5 ??F) 01/16/2018 0622 EDT Respiratory Rate 18 01/16/2018 0622 EDT Oxygen Saturation 100% 01/16/2018 0622 EDT Inhaled Oxygen Concentration - - Weight 77.1 kg (170 lb) 01/14/20182012 EDT stated by p t Height 182.9 cm (6') 01/14/20182012 EDT Body Mass Index 23.06 01/14/20182012 EDT documented in this encounter Functional Status Functional Status Response [...] or older) documented as of this encounter Discharge Diagnoses Diagnosis K22.6 Gastro-esophageal laceration-hemor rhage syndrome-K22.6[ICD-10-CM] D62 Acute posthemorrhagic anemia-D62[ICD -10-CM] F11.20 Opioid dependence, uncomplicated- F11.20[ICD-10-CM] F32.9 Major depressive disorder, single episode, unspecified-F32.9[ICD-10-CM] R00.0 Tachycardia, unspecified-R00.0[ICD -10-CM] K21.9 Gastro-esophageal reflux disease w ithout esophagitis-K21.9[ICD-10-CM] F17.210 Nicotine dependence, cigarettes, uncomplicated-F17.210[ICD-10-CM] F10.21 Alcohol dependence, in remission- F10.21[ICD-10-CM] Z91.5 Personal history of vkcv-yefv-X60. 5[ICD-10-CM] documented in this encounter Discharge Summaries Jody Parker MD - 01/16/2018 1011 EDT Medicine Discharge Summary Primary Care Provider: Cm Neri Attending Physician: Jody Parker MD Admit Date: 01/13/2018 Discharge Date: 01/16/2018 Disposition: Home or self care Reason for Admission: Hematemesis and hematochizia Principal/Final Diagnosis: Elida-Goodrich tear Additional Problems Managed in the Hospital Active Hospital Problems Diagnosis Date Noted ??? *Elida-Goodrich tear 01/15/2018 ??? Acute blood loss anemia 01/15/2018 ??? Upper GI bleed 01/13/2018 Resolved Hospital Problems Diagnosis Date Noted Date Resolved No resolved problems to display. Principal Procedure: Upper endoscopy - This demonstrated a Elida-Goodrich tear at the GE junction with normal stomach and duodenum. Hospital Course: Mark Ross is a 47 y.o. male with a PMHx of IV drug use as recently as 3 months ago, currentlyon methadone, depression and suicidal ideation currently on Wellbutrin, tobacco use, and former heavy alcohol abuse who presented to [facility] today after an episode of hematemesis last night andhematochezia and melena this morning. On admission the patient was slightly hypertensive afebrile satting 99% on room air mild tachycardia to 107. Hemoglobin was 11.2. He was treated with 40 mg IV Protonix, 3 L normal saline, and repeat hemoglobin was then 8.8. He was transferred to [facility] for further management. His hemoglobin on arrival was 7.4, and he was symptomatic with intermittent lightheadedness upon standing. Patient was then transfused 1 unit of packed red blood cells, with interval decrease of his hemoglobin to 7.0 without any further hematemesis or hematochezia. A second unit of packed red blood cells showedd inadequate response to the only 7.3 he was transfused 1 more unit with appropriate response to 8.3 and the next morning hemoglobin of 8.5. He continues to deny any hematochezia or hematemesis. He was seen by GI on the morning after admission, and patient received an upper endoscopy which demonstrated a Elida-Goodrich tear at the GE junction without any pathology of the stomach or duodenum. He was started on IV Protonix twice a day, and then transitioned to oral Protonix once a day per GI recommendations. He was started on a full liquid diet and eventually transitioned to a regular diet without any complications. Throughout this the patient's vitals remained stable. Today he was considered stable for discharged and discharged home. Condition at Discharge: Excellent Clinical Issues Needing Follow-up: GERD and acute blood loss anemia - -Please follow-up with your primary care physician regarding treatment of your severe gastroesophageal reflux disease and resolution of your blood loss anemia. -He should repeat blood work sometime between next Friday and Friday Discharge Medications: START taking these medications Sig nicotine 10 mg inhaler Commonly known as: NICOTROL Inhale 1 cartridge as directed every 2 hours as needed for Smoking Cessation. Quantity: 1 Cartridge pantoprazole 40 mg tablet Commonly known as: PROTONIX Start taking on: 01/17/2018 Take 1 Tab by mouth daily for 90 days. Quantity: 30 Tab CONTINUE taking these medications Sig buPROPion 300 mg XL tablet Commonly known as: WELLBUTRIN XL Take 300 mg by mouth daily. methadone 10 mg tablet Commonly known as: DOLOPHINE Take 80 mg by mouth daily. No Known Allergies There is no immunization history on file for this patient. Results Pending at Discharge Test results still pending from this admission None Follow-up appointments and procedures Amb Consult/Follow Up Primary Care Physician Reason for Request: hospital follow up for GI bleed, CBC Expected Discharge Date (Inpatient Only): 01/16/2018 Authorizing Provider: Hernandez Bills MD Additional Information: Please follow up with Cm Neri on January 27, 2018, at 2:55pm. If you have any questions, please call [phone]. Follow-up labs and tests Hemagram Complete by: Jan 19, 2018 Authorizing Provider: Hernandez Bills MD Discharge Handoff Communication Following information will be conveyed to Dr. Cm Neri, by Debbie Singh MD: ?? Reason for admission and final diagnosis ?? Medication changes ?? Anticoagulation plan if applicable (including medications and next blood draw) ?? Appointments and tests needed after discharge (includes repeat studies and at what interval) ?? Tests (laboratory, pathology, etc.) pending at discharge Discharge Summary Completed By: Debbie Singh MD PGY-1 Internal Medicine Pager: [phone] ATTENDING ATTESTATION: Date of service: 01/16/2018 I interviewed and examined the patient; reviewed interval labs, events, and notes. I discussed the case with the medicine house staff team and agree with and addended (in blue) the findings and plan ofcare as documented in resident discharge summary above. Patient is medically stable for discharge today. I personally spent >30 minutes reviewing the chart, evaluating and examining the patient, and counseling and preparing the patient for discharge. Patient counseled at length on new medication and compliance and the proper diet, including eating and drinking 3 meals per day. Discussed need for repeat blood work and importance of follow up with with PCP Jody Praker MD Internal Medicine Hospitalist Attending documented in this encounter Discharge Instructions AppointmentsNirali Avalos - 01/16/2018 12:50 EDT Please follow up with Cm Neri on January 27, 2018, at 2:55pm. If you have any questions, please call [phone]. Additional InstructionsHernandez Bills MD - 01/16/2018 11:57 EDT You were managed for a GI bleed due to a Elida Goodrich tear, requiring transfusion of blood. 1. Continue to take pantoprazole treatement. 2. See your PCP in the next 3-10 days for follow up. 3. Have blood work completed on Friday, 01/19 to check for further blood loss. documented in this encounter Medications at Time of Discharge Medication Sig Dispensed Refills Start Date End Date buPROPion (WELLBUTRIN Take 300 mg by mouth 0 XL) 300 mg XL daily. tabletIndications: major depressive disorder methadone (DOLOPHINE) Take 80 mg by mouth 0 10 mg daily. tabletIndications: opioid dependence nicotine (NICOTROL) 10 Inhale 1 cartridge 1 Cartridge 0 12/22 mg inhaler as directed every 2 hours as needed for Smoking Cessation. pantoprazole (PROTONIX) Take 1 Tab by mouth 30 Tab 2 04/17/2018 40 mg tablet daily for 90 days. documented as of this encounter Ordered Prescriptions Prescription Sig Dispensed Refills Start Date End Date nicotine (NICOTROL) 10 Inhale 1 cartridge 1 Cartridge 0 12/22 mg inhaler as directed every 2 hours as needed for Smoking Cessation. pantoprazole (PROTONIX) Take 1 Tab by mouth 30 Tab 2 04/17/2018 40 mg tablet daily for 90 days. documented in this encounter Discharge Disposition Disposition Code Departure Means Destination Home or Self Care documented in this encounter Progress Notes Jody Parker MD - 01/15/2018 2205 EDT Medicine Progress Note Service Date: 01/15/2018 Admit Date: 01/13/2018 23:17 Reason for Admission: 47 y.o. male admitted with a chief complaint of hematemesis, hematochizia and now with a principal diagnosis of acute blood loss anemia secondary to GI bleed. 24 Hour Events: -Started on Full Diet -Received 1 unit pRBCs Subjective/Objective Subjective Today Mr. Ross has no complaints. He reports the lightheadedness he felt previously in standing has resolved. He reports feeling stronger than he did when he arrived. He states that he had 2 bowel movements overnight both of which were less blackened and more formed than previously. He denies any hem atochezia, hematemesis, nausea, vomiting, chest pain, shortness of breath. Review of Systems Pertinent items are noted in Subjective/HPI Objective Vital Signs Temp: [36.4 ??C (97.5 ??F)-37.4 ??C (99.3 ??F)] (), Heart Rate: [80 BPM-87 BPM] (), Resp: [12-20] (), BP: (111-134)/(63-75) (), SpO2: [99 %-100 %] () on room air Physical Exam General appearance: alert, cooperative, no distress Skin: Color, temperature normal. No rashes or lesions visible. HEENT: MMM, no oral lesions, no scleral icterus, EOM intact Lungs: CTAB, non labored breathing, speaking in full sentences Heart: RRR, S1, S2 normal, no MRG Abdomen: soft, nontender to palpation; bowel sounds normal : No Angel present Neurologic: No focal deficits, no dysarthria Mental Status: awake, A/O x4 Extremities: warm, no edema Pulses: 2+ and symmetric (radial and dorsal pedalis) Is PICC or central line present? No, PICC/Central line not present. Medications Reviewed: notable for addition of protonix Labs Lab Results Component Value Date WBC 7.43 01/15/2018 HGB 8.3 (L) 01/15/2018 HCT 23.3 (L) 01/15/2018 MCV 87 01/15/2018 PLT 188 01/15/2018 Recent Labs 01/13/18 2302 01/14/18 0635 CREATININE 0.55* 0.64* BUN 32* 31* NA 134* 137 K 3.8 4.2 CL 107 107 CO2 21* 24 Imaging No Imaging. Assessment/Plan Assessment Mark Ross is a 47 y.o. male with a PMHx significant for opiate abuse and IV drug use on Suboxone, smoking, GERD who presented after an episode of hematemesis and hematochezia with melena. He hada rapid drop in his hemoglobin after fluid resuscitation. Tolerating regular diet well, two brown formed bowel movements overnight, overall improving and likely stable for discharge tomorrow. Plan Acute blood loss anemia secondary to Elida-Goodrich tear - EGD by GI today demonstrating Elida-Goodrich tear - GI following appreciate recommendations - 2 large-bore peripheral IVs - Received 2 units packed red blood cells yesterday - Received 1 unit pRBC today with non-response to previous 2 units - Posttransfusion hemoglobin with appropriate response - Protonix 40 mg p.o. once daily - CBC every 12 hours or with any passage of bloody stool - Upgraded to regular diet - Plan to trend CBC, until stable ?? Opiate abuse on Methadone -Methadone dosing confirmed at 80 mg -continue [employer] methadone ?? Tobacco abuse ???Nicotine replacement with inhaler ?? Depression/prior suicide attempt ???[employer] bupropion VTE Prophylaxis Contraindicated in setting of acute GI bleed Discharge Plan Home or self care likely tomorrow Consults GI DEBBIE SINGH MD 01/15/2018 21:14 ATTENDING ATTESTATION: Date of service: 01/15/2018 I interviewed and examined the patient; reviewed interval labs, events, and notes. I discussed the case with the medicine house staff team and agree with and addended (in blue) the findings and plan ofcare as documented in resident note above. Jody Parker MD Internal Medicine Hospitalist Attending Valerie Patten - 01/14/2018 1245 EDT Clinical Update: I called and verified dose of 80mg oral methadone daily with [facility]. Last administration was yesterday, 01/13/2018. MEMO Cortez Jody Laura MD - 01/14/2018 0752 EDT Medicine Progress Note Service Date: 01/14/2018 Admit Date: 01/13/2018 22:42 Reason for Admission: 47 y.o. male admitted with a chief complaint of hematemesis, hematochizia and now with a principal diagnosis of acute blood loss anemia secondary to GI bleed. 24 Hour Events: -Admitted to internal medicine service -Received 1 unit packed red cells - ordered for am prior to EGD but patient did not receive until ~5pm today -Received EGD Subjective/Objective Subjective Mark Ross is a 47-year-old male who presented last night from an episode of hematemesis with subsequent hematochezia. This morning his only complaints are weakness and some lightheadedness upon standing and walking. He denies any chest pain, shortness of breath and his last melanotic bowel movement several hours earlier. He denies any new episodes of hematemesis. Review of Systems Pertinent items are noted in Subjective/HPI Objective Vital Signs Temp: [36.3 ??C (97.3 ??F)-37.3 ??C (99.1 ??F)] (), Heart Rate: [80 BPM-94 BPM] ()HR 120-130's this morning prior to EGD, Resp: [13-18] (), BP: (118-141)/(62-88) (), SpO2: [98 %-100 %] () on room air Physical Exam General appearance: alert, cooperative, no distress Skin: Color, temperature normal. No rashes or lesions visible. HEENT: MMM, no oral lesions, no scleral icterus, EOM intact Lungs: CTAB, non labored breathing, speaking in full sentences Heart: RRR, S1, S2 normal, no MRG Abdomen: soft, mildly tender to palpation in epigastric area; bowel sounds normal : No Angel present Rectal Exam: No blood or stool in rectal vault Neurologic: No focal deficits, no dysarthria Mental Status: awake, A/O x4 Extremities: warm, no edema Pulses: 2+ and symmetric (radial and dorsal pedalis) Is PICC or central line present? No, PICC/Central line not present. Medications Reviewed: notable for addition of protonix Labs Lab Results Component Value Date WBC 6.79 01/14/2018 HGB 7.4 (L) 01/14/2018 HCT 21.2 (L) 01/14/2018 MCV 89 01/14/2018 PLT 200 01/14/2018 Recent Labs 01/13/18 2302 01/14/18 0635 CREATININE 0.55* 0.64* BUN 32* 31* NA 134* 137 K 3.8 4.2 CL 107 107 CO2 21* 24 Imaging No Imaging. Assessment/Plan Assessment Mark Ross is a 47 y.o. male with a PMHx significant for opiate abuse and IV drug use on Suboxone, smoking, GERD who presented after an episode of hematemesis and hematochezia with melena. He hada rapid drop in his hemoglobin after fluid resuscitation. Has had 2 melanotic stools since admissionand received 1 unit packed red blood cells for symptomatic anemia, remains hemodynamically stable. Plan Acute blood loss anemia secondary to Elida-Goodrich tear - EGD by GI today demonstrating Elida-Goodrich tear - GI following appreciate recommendations - 2 large-bore peripheral IVs - Received 1 unit packed red blood cells since admission - Protonix 40 mg p.o. once daily - CBC every 12 hours or with any passage of bloody stool - Full liquid diet, will advance with decreased melanotic stools - Plan to trend CBC, until stable ?? Opiate abuse on Methadone -Methadone dosing confirmed at 80 mg with last dose yesterday 01/13 -continue [employer] methadone ?? Tobacco abuse ???Nicotine replacement with inhaler ?? Depression/prior suicide attempt ???[employer] bupropion VTE Prophylaxis Contraindicated in setting of acute GI bleed Discharge Plan Uncertain at this time Consults GI DEBBIE SINGH MD 01/14/2018 7:53 ATTENDING ATTESTATION: Date of service: 01/14/2018 I interviewed and examined the patient; reviewed interval labs, events, and notes. I discussed the case with the medicine house staff team and agree with and addended (in blue) the findings and plan ofcare as documented in resident note above. I spent a total of 45 minutes with the patient in direct floor time and 30 minutes of that time was spent in discussion with the patient face to face about his risks and treatment options for his acuteanemia and associated symptoms as well as the GI bleed, the severity of which is life threatening. Jody Parker MD Internal Medicine Hospitalist Attending 01/14/2018 23:57 documented in this encounter H&P Notes Matthieu Bertrand MD - 01/14/2018 1518 EDT Endoscopy Sedation for Procedure History & Physical Date: 01/14/2018 Time: 15:18 Location: [facility] Planned Procedure: Gastroscopy Chief Complaint/Indications for Procedure: GIB History Previous Complication with Sedation and/or Anesthesia? No Allergies: No Known Allergies Current Medications: Current Facility-Administered Medications: acetaminophen (TYLENOL) tablet 650 mg oral Q6H PRN atropine 0.1 mg/mL syringe 0.25-1 mg intravenous PRN buPROPion (WELLBUTRIN XL) XL tablet 300 mg oral DAILY flumazenil (ROMAZICON) injection 0.2 mg intravenous PRN indomethacin (INDOCIN) rectal suppository suppository 50 mg rectal PRN lactated ringers (LR) infusion intravenous CONTINUOUS meperidine (PF) (DEMEROL) 100 mg/mL injection 25-200 mg intravenous Once PRN midazolam (MDV) (VERSED) injection 1-10 mg intravenous Once PRN naloxone (NARCAN) injection 0.4 mg intravenous PRN nicotine (NICOTROL) 10 mg inhaler 1 Inhaler inhalation Q2H PRN nicotine inhaler (delivery device) inhalation PRN pantoprazole (PROTONIX) injection 40 mg intravenous BID sodium chloride 0.9 % flush 3 mL intravenous PRN Past Medical History: Past Medical History: Diagnosis Date ??? Acid reflux disease 2015 ??? Carpal tunnel syndrome ??? Hiatal hernia ??? Opioid abuse ??? Psychiatric problem Social History: Past Surgical History: Procedure Laterality Date ??? VASECTOMY ??? WRIST SURGERY Social History Substance Use Topics ??? Smoking status: Current Every Day Smoker Packs/day: 1.00 Years: 32.00 Types: Cigarettes ??? Smokeless tobacco: Never Used ??? Alcohol use No Family History: No family history on file. Review of Systems as pertinent: Physical Exam Vital Signs: BP (!) 121/91 (BP Cuff Location: Left arm, Patient Position: Semi fowlers) Comment: Charge informed of all vital signs Pulse (!) 108 Temp 36.7 ??C (98.1 ??F) (Tympanic) Resp 20 SpO2 100% Heart Examination: Cardiac Regularity: Regular Respiratory Examination: Respiratory Pattern: Regular Breath Sounds Right: Clear Breath Sounds Left: Clear Abdominal Examination: Soft, non-tender, bowel sounds normal, no masses, no organomegaly Additional physical exam related to the proposed procedure, patient activity, disease state and treatment as pertinent: Assessment Previous complications with sedation or anesthesia?: No Airway Concerns: None Anesthesia Classification: ASA 2 Plan: Proceed with sedation for procedure Fasting Time: Time of last liquid intake: 0000 Date of Last Liquid Intake: 01/14/18 Date of last solid intake: 01/11/18 Patient Appropriate Candidate for Planned Sedation?: Yes Matthieu Bertrand MD 01/14/2018 15:18 eseValerie cruz - 01/14/2018 0732 EDT Internal Medicine History and Physical: Date of Admission: 01/13/2018 Date of Service: 01/14/2018 Chief Complaint: Upper GI Bleed History of Present Illness (HPI): Mark Ross is a 47 y.o. male with a past medical history significant for IVDU on suboxone (last use 3 months ago), depression, suicidal ideation, former alcoholism, and tobacco use who presented to [facility] yesterday after an episode of hematemesis 2 nights ago and hematochezia and melenayesteday morning. For a few days prior to presentation he said he'd been forgetting to eat and falling asleep before dinner time. He describes a bright red vomit with clots x 1 on the evening of the and dark stools with perhaps some maroon mixed in, not emile blood. He had the one stool prior to admission on the and another one this morning, which was also dark. This has never happened to him before, though he endorses previous hemorrhoids which he thinks was associated with opiate relatedconstipation. He denies alcohol use within the past 8 years, or any recent anticoagulative agents including OTC aspirin/NSAID use. He does endorse a history of heartburn and acid reflux over many years, which he's only ever treated with tums on his own. He also has a ventral hernia which has not been surgically operated on. He's also never had an EGD or colonoscopy. On ROS he endorses ongoing mild midepigastric pain, lightheadedness and dizziness. He notes significant weakness and dizziness when walking to the bathroom. Denied nausea, fevers, chills, shortness of breath and chest pain, blood in theurine and difficulty swallowing. At the OSH, Mr. Ross was found to be slightly hypertensive, afebrile, tachycardic to 107, and was satting 99% on room air. Hemoglobin was at 11.2 initially. After receiving 3L NS, hemoglobin dropped to 8.8. He also received 40mg IV protonix and protonix drip before being transferred to [facility]. He was similarly hemodynamically stable and afebrile at [facility] (37.1C, HR 83, 122/88, 18RR, SpO2 100%) on presentation, with labs sigificant for HgB 7.4, Na 134, CO2 21, BUN 32 and Cr 0.55. He received protonix 40 IV x 1 and another NS infusion for 100cc/hr for 4 hours. 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 He has been abstinent of alcohol for 8 years, and last used IV opiates after father three months ago. Current smoker of 1.5ppd. Has been tested for HIV and Hep C in the past, which were negative. Review of Systems: A complete 10 point review of systems (ROS) was performed and pertinent positive and negative findings are listed in the HPI. Otherwise, negative. Past Medical History: Past Medical History: Diagnosis Date ??? Acid reflux disease 2014 ??? Carpal tunnel syndrome ??? Hiatal hernia ??? Opioid abuse ??? Psychiatric problem Past Surgical History: Past Surgical History: Procedure Laterality Date ??? VASECTOMY ??? WRIST SURGERY Prior to Admission Medications: Prescriptions Prior to Admission Medication Sig ??? buPROPion (WELLBUTRIN XL) 300 mg XL tablet Take 300 mg by mouth daily. ??? methadone (DOLOPHINE) 10 mg tablet Take 80 mg by mouth daily. Last reviewed on 01/13/2018 22:04 by Payton Mccrary, RN Current Medications: Current Facility-Administered Medications: acetaminophen (TYLENOL) tablet 650 mg oral Q6H PRN buPROPion (WELLBUTRIN XL) XL tablet 300 mg oral DAILY nicotine (NICOTROL) 10 mg inhaler 1 Inhaler inhalation Q2H PRN nicotine inhaler (delivery device) inhalation PRN pantoprazole (PROTONIX) injection 40 mg intravenous BID Allergies: No Known Allergies Social History: Social History Social History ??? Marital status: Spouse name: N/A ??? Number of children: N/A ??? Years of education: N/A Occupational History ??? Not on file. Social History Main Topics ??? Smoking status: Current Every Day Smoker Packs/day: 1.00 Years: 32.00 Types: Cigarettes ??? Smokeless tobacco: Never Used ??? Alcohol use No ??? Drug use: Yes Special: Marijuana ??? Sexual activity: Yes Partners: Female Other Topics Concern ??? Not on file Social History Narrative Objective: Vitals: Tachy into the 130s when examining this am. Patient Vitals for the past 24 hrs: BP Temp Temp src Pulse Resp SpO2 01/14/18 0540 118/62 36.3 ??C (97.3 ??F) Tympanic - 16 99 % 01/14/18 0049 141/77 37.3 ??C (99.1 ??F) Tympanic - 18 98 % 01/13/18 2300 132/82 - - - 18 100 % 01/13/18 2200 121/87 - - - 13 99 % 01/13/18 2158 122/88 37.1 ??C (98.8 ??F) Oral 83 18 100 % Physical Exam: General: Appears stated age, in no apparent distress. Poor dentition. Appears tired and diaphoretic. Cardiovascular: Tachycardic, regular, no murmurs, rubs or gallups. Respiratory: Good air movement. Clear to auscultation. Abdomen: Mild mid-epigastric tenderness. Otherwise non-distended, non-tender, normoactive BS. Musculoskeletal and Dermatologic: No pedal edema bilaterally. Rectal exam: Negative for gross blood Ins: 383cc/24hrs Outs: 425cc/24 hrs Net: -42cc Labs: Recent Labs 01/13/18 2302 01/14/18 0635 NA 134* 137 K 3.8 4.2 CL 107 107 CO2 21* 24 BUN 32* 31* CREATININE 0.55* 0.64* CALCIUM 7.8* -- CALCCA 8.8 -- Recent Labs 01/13/18 2302 01/14/18 0635 WBC 7.70 6.79 HGB 7.5* 7.4* HCT 21.5* 21.2* MCV 89 89 PLT 194 200 Glucose: 103 PT: 11.9 INR: 1.0 PTT: 29 HCV RNA: Pending HIV: Negative Type and screened Imaging: None Assessment and Plan: 47 y.o. male with past medical history of IVDU on suboxone and distant alcoholism who presented withacute onset hematemesis, hematochezia and melena, likely secondary to upper GI bleed, now hemodynamically stable but with downtrending hemoglobin. 1. Acute gastrointestinal bleed: Currently hemodynamically stable, but tachy into 130s. Hemoglobin continues to downtrend, currently at 7.4. Isotonic fluid resuscitation contributing. Not on anticoagulation, already typed and screened. PT/PTT/INR within normal limits. Given hematemesis, much more likely to be upper > lower. Also increased BUN consistent with UGI bleed. Differential includes: -PUD: Most likely given his history of chronic heartburn treated with tums. -Varices: Less likely, as his history of alcoholism is quite distant. -Esophagitis: Less likely, no pain on swallowing -AVM, dieulafoy, elida, neoplasm Plan: - EGD this am, GI consult, NPO - Vitals q4hr - CBC q 6hrs - Hold NS for the time being, given hemodynamic stability. Low threshold to restart. - [address] - 1 unit pRBC for now, monitor for further needs - Continue PPI 40mg IV BID - Consider HPylori antibody if suspecting PUD - Consider ceftriaxone, octreotide if variceal 2. Chronic Opiate Dependence: Plan: -Confirm methadone dose of 80mg, start 3. Tobacco Abuse: Plan: -Nicotine replacement 4. Depression: Plan: -Continue home buproprion 300mg DVT Prophylaxis: Hold in the setting of acute GI bleed Code Status: Full Discharge Planning: Pending clinical improvement Valerie Hickey MS4 Pager #[phone] Alvaro Cox MD - 01/13/2018 6517 EDT Medicine Admission History & Physical Service Date: 01/13/2018 Admit Date: 01/13/2018 22:42 Primary Care Provider: Cm Neri Chief Complaint: GI bleed HPI Mark Ross is a 47 y.o. male with a PMHx of IV drug use as recently as 3 months ago, currentlyon Suboxone, depression and suicidal ideation currently on Wellbutrin, tobacco use, and former heavyalcohol abuse who presented to [facility] today after an episode of hematemesis last night and hematochezia and melena this morning. On admission the patient was slightly hypertensive afebrile satting 99% on room air mild tachycardia to 107. Hemoglobin was 11.2. He was treated with 40 mg IV Protonix and a Protonix drip, 3 L normal saline, and repeat hemoglobin was then 8.8. [facility]. On admission he denies any further nausea or vomiting, denies any stool since this morning. He has asmall amount of midepigastric abdominal pain. He denies fevers, chills, chest pain, shortness of breath. He has been lightheaded and dizzy. Social: States he last used IV drugs about 3 months ago when his father . He has been abstinent of alcohol for several years. He says he has been tested for HIV and hepatitis C in the past and thiswas negative. He lives with his parents in [facility]. 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 He is a currentsmoker. Review of Systems A complete 10 point ROS was performed and pertinent positive and negative findings listed in HPI, otherwise negative. Past Medical History: Diagnosis Date ??? Acid reflux disease 2015 ??? Carpal tunnel syndrome ??? Hiatal hernia ??? Opioid abuse ??? Psychiatric problem past medical history includes nicotine addiction, opiate abuse in remission, hemorrhoids, LAZARUS, depression Past Surgical History: Procedure Laterality Date ??? VASECTOMY ??? WRIST SURGERY Social History Substance Use Topics ??? Smoking status: Current Every Day Smoker Packs/day: 1.00 Years: 32.00 Types: Cigarettes ??? Smokeless tobacco: Not on file ??? Alcohol use No No family history on file. Prescriptions Prior to Admission Medication Sig ??? buPROPion (WELLBUTRIN XL) 300 mg XL tablet Take 300 mg by mouth daily. ??? methadone (DOLOPHINE) 10 mg tablet Take 80 mg by mouth daily. No Known Allergies Objective Vitals Temp: [37.1 ??C (98.8 ??F)-37.3 ??C (99.1 ??F)] (), Heart Rate: [80 BPM-90 BPM] (), Pulse: [83] (), Resp: [13-18] (), BP: (121-141)/(77-88) (), SpO2: [98 %-100 %] (), Numeric Pain Level (Scale 1-10): 0 Weight: There is no height or weight on file to calculate BMI. Physical Exam Gen.: Thin man in no acute distress HEENT: Poor dentition, moist mucous membranes, pale, pupils equal round Lungs: Clear to auscultation bilaterally Cardiac: Regular rate and rhythm, no murmur appreciated Abdomen: Soft, thin, nondistended, nontender, positive bowel sounds Extremities: Warm and well-perfused, 2+ DP pulses, no edema Neuro: Alert and oriented, moves all extremities, no facial droop Skin multiple tattoos Pressure Ulcer Present on admission? No Labs I have personally reviewed Recent Labs 01/13/18 230 WBC 7.70 RBC 2.42* HGB 7.5* HCT 21.5* MCV 89 MCH 31.0 MCHC 34.9 PLT 194 NEUTROABS 4.12 Recent Labs 01/13/18 2302 NA 134* K 3.8 CL 107 CO2 21* BUN 32* CREATININE 0.55* CALCIUM 7.8* Recent Labs 01/13/18 230 PROTIME 11.9 INR 1.0 PTT 29 Imaging No results found.. Assessment Mark Ross is a 47 y.o. male with a PMHx significant for opiate abuse and IV drug use on Suboxone, smoking, GERD who presented after an episode of hematemesis and hematochezia with melena. He hada rapid drop in his hemoglobin after fluid resuscitation but has had no further hematemesis, hematochezia or melena. GI has been consulted with plan to do an upper endoscopy in the morning. Differential includes peptic ulcer disease, esophagitis, AVM. Variceal bleeding remains in differential given prior history of alcohol use though INR is normal and no other stigmata of liver disease. Plan Acute blood loss anemia in the setting of likely upper GI bleed - Nothing by mouth for upper endoscopy tomorrow ???2 large-bore peripheral IVs ???Protonix 40 mg IV twice a day ???He is typed and screened ???CBC every 12 hours or with any passage of bloody stool Opiate abuse on Suboxone - Confirm dose tomorrow, have not ordered Tobacco abuse ???Nicotine replacement with inhaler Depression/prior suicide attempt ???Continue home bupropion VTE Prophylaxis Seqential Compression Device Code: full Discharge Plan Home or self care Consults GI Admission Status Inpatient. Anticipated duration of hospitalization is greater than two midnights due to Blood loss anemia and ongoing GI bleeding. Eunice Trujillo MD 01/14/2018 1:49 I saw and examined the patient 01/14/2018. I have discussed the case with Dr. Trujillo and agree with the findings and plans documented above. Alvaro Haney MD, 01/14/2018, 16:04 Attending Physician Internal Medicine [facility] Hospitalist documented in this encounter Consult Notes Chay Lovett MD - 01/14/2018 0853 EDT Gastroenterology & Hepatology Consult Note The Gastroenterology service was consulted to see Mark Ross for hematemesis Requesting Physician: Jody Parker MD HPI: 47 y.o.male with a history of IVDU (on methadone), GERD, and depression who initially presented to [facility] on 01/13 with hematemesis. He reports being in his usual state of health until the morning of presentation when he started to have slight a slight epigastric aching discomfort. He attributed it to his hiatal hernia and carried on with his day until the evening when he suddenly became nauseous and vomited maroon blood without any coffee grounds. He did not have retching prior to this episode. He reports vomiting ~3 cups of blood twice before seeking care at [facility] where he was tachycardic (107bpm), but normotensive. Hb was 11.2. He was given 3L of normal saline and started on a PPI drip. He reports having melena without BRBPR around that time. A repeat Hb was 8.8 [facility]. He states the epigastric discomfort has fully subsided. He had a bowel movement this morning which he describes as sticky and very dark. He reports having GERD which has become more severe over the past 3-4 months. He does not take medications for GERD. No odynophagia or dysphagia. He has never had an EGD and does not use NSAIDs. He reports a history of heavy alcohol abuse, but has stopped using alcohol for many years now. He currently smokes 1ppd. No recent prednisone. ROS: Full review of systems was negative except as detailed above. Past Medical History: Diagnosis Date ??? Acid reflux disease 2014 ??? Carpal tunnel syndrome ??? Hiatal hernia ??? Opioid abuse ??? Psychiatric problem Past Surgical History: Procedure Laterality Date ??? VASECTOMY ??? WRIST SURGERY MEDICATION LIST: See MAR No Known Allergies Social History Social History ??? Marital status: Spouse name: N/A ??? Number of children: N/A ??? Years of education: N/A Occupational History ??? Not on file. Social History Main Topics ??? Smoking status: Current Every Day Smoker Packs/day: 1.00 Years: 32.00 Types: Cigarettes ??? Smokeless tobacco: Never Used ??? Alcohol use No ??? Drug use: Yes Special: Marijuana ??? Sexual activity: Yes Partners: Female Other Topics Concern ??? Not on file Social History Narrative No family history on file. PE: Vitals: 01/13/18 2200 01/13/18 2300 01/14/18 0049 01/14/18 0540 BP: 121/87 132/82 141/77 118/62 BP Cuff Location: Left arm Left arm Patient Position: Semi fowlers Semi fowlers Pulse: Resp: Temp: 37.3 ??C (99.1 ??F) 36.3 ??C (97.3 ??F) TempSrc: Tympanic Tympanic SpO2: 99% 100% 98% 99% Gen: NAD. AAOx3 Skin: Warm. Dry. No rashes HEENT: Anicteric Sclera Pulm: CTAB. No wheezing, rales, or rhonchi Card: RRR. S1, S2 normal. No murmurs, rubs, or gallops Abd: Soft. Non-distended. Non-tender. Normoactive bowel sounds. Ext: No edema Neuro: Spontaneously moving bilateral upper and lower extremities without focal deficits Laboratory/Imaging/Procedures: Data reviewed. Pertinent results are as follows: Hb 7.4 PLT 200 INR 1 EGD Findings: Esophagus - Elida Goodrich Tear at [place] Stomach - normal Duodenum - normal Impression: 47 y.o. male with a history of IVDU (on methadone), GERD, and depression who initially presented to [facility] on 01/13 with hematemesis followed by melena who was found to have a elida goodrich tear on EGD. Recommendations: -Begin a once daily PPI This patient was seen and examined with Dr. Bertrand. Chay Lovett MD Gastroenterology & Hepatology Fellow #[id number] Associated attestation - Matthieu Bertrand MD - 01/15/2018 0659 EDT Attestation statement: I saw and examined the patient with the resident/fellow. I agree with the findings and plan of care documented in the resident's/fellow's note. documented in this encounter ED Notes Wilbert Olsen - 01/13/2018 3428 EDT Blood drawn via saline lock per protocol, tiger, blue, purple and pink tube(s) sent to lab per order. ayton Vargas RN - 01/13/2018 2351 EDT Nurse from floor called verbal report given updated pt Payton Rivera RN - 01/13/2018 2330 EDT Sister here to visit ayton Vargas RN - 01/13/2018 2322 EDT Attempted to call report to floor, nurse in report will call back per charge nurse Payton Rivera RN - 01/13/2018 2246 EDT GI md providers at bedside eval pt Payton gallego RN - 01/13/2018 2213 EDT Med order clarified w/ er md provider prior to administration ETMichell Catalan MD - 01/13/2018 2153 EDT DOS: 01/13/2018 Chief Complaint Patient presents with ??? GI Bleeding see transfer chart black stools/n/v blood HPI Comments: I, Whit Baron, am scribing for Michell Catalan MD while he/she is personallyperforming the service. Whit Baron 01/13/2018 21:53 Mark Ross is a 47 y.o. male with a history of opioid abuse on methadone and untreated GERD who arrives from [facility] with a GI bleed. He reports he had abdominal pain yesterday throughout the day.The patient reports that had one episode of hematemesis last night. He reports he had an episode of melena and hematochezia today. The patient went to [facility] where he had a reassuring H&H there. Hewas hydrated with 3 liters of fluid and had a decrease in his H&H but was stable. There is no GIdoc available overnight at [facility], and he was transferred to [facility] for management. On arrival, the patient endorses lightheadedness intermittently. He denies changes in his lightheadedness with positions. The patient does not drink alcohol. He smokes, drinks coffee and eats chocolate. The patient received protonix infusion en route from [facility]. The history is provided by the patient, the EMS personnel and medical records. Review of Systems Review of Systems Constitutional: Negative for fever. HENT: Negative for congestion and rhinorrhea. Eyes: Negative for pain. Respiratory: Negative for cough. Cardiovascular: Negative for chest pain. Gastrointestinal: Positive for abdominal pain, blood in stool, nausea and vomiting. Negative for anal bleeding. Genitourinary: Negative for flank pain. Musculoskeletal: Negative for back pain. Skin: Negative for wound. Allergic/Immunologic: Negative for immunocompromised state. Neurological: Negative for headaches. Psychiatric/Behavioral: Negative for confusion. The patient???s past medical, family, and social history was reviewed and updated as needed. Allergies not on file Physical Exam Constitutional: He is oriented to person, place, and time. He appears well- developed and well-nourished. No distress. HENT: Head: Normocephalic and atraumatic. Eyes: Conjunctivae and EOM are normal. Pupils are equal, round, and reactive to light. Right eye exhibits no discharge. Left eye exhibits no discharge. Neck: Normal range of motion. Neck supple. No tracheal deviation present. Cardiovascular: Normal rate, regular rhythm, normal heart sounds and intact distal pulses. Pulmonary/Chest: Effort normal and breath sounds normal. No respiratory distress. He has no wheezes. Abdominal: Soft. Bowel sounds are normal. He exhibits no distension. There is tenderness. Minimal epigastric and left upper quadrant tenderness. Musculoskeletal: Normal range of motion. He exhibits no edema. Neurological: He is alert and oriented to person, place, and time. He exhibits normal muscle tone. Skin: Skin is warm and dry. No rash noted. Psychiatric: He has a normal mood and affect. Nursing note and vitals reviewed. RESULTS EKG orders: None Radiology orders: None ED Lab Results Labs Reviewed COMPLETE BLOOD COUNT AND DIFFERENTIAL - Abnormal Result Value Status WBC 7.70 Final RBC 2.42 (*) Final Hemoglobin 7.5 (*) Final HCT 21.5 (*) Final MCV 89 Final MCH 31.0 Final MCHC 34.9 Final RDW-CV 13.3 Final RDW-SD 43.6 Final PLT 194 Final MPV 9.8 Final Neutrophils 53.5 Final Lymphocytes 37.5 Final Monocytes 7.7 Final Eosinophils 0.5 Final Basophils 0.4 Final Immature Grans 0.4 Final ABS Neutrophils 4.12 Final ABS Lymphs 2.89 Final ABS Monocytes 0.59 Final ABS Eosinophils 0.04 Final ABS Basophils 0.03 Final ABS Immature Grans 0.03 Final Type of Diff: Automated Final BASIC METABOLIC PANEL (BMP) - Abnormal Sodium 134 (*) Final Potassium 3.8 Final Chloride 107 Final CO2 21 (*) Final BUN 32 (*) Final Creatinine 0.55 (*) Final GFR, Calculated 126 Final Calcium 7.8 (*) Final Calculated Calcium 8.8 Final Glucose, Serum 103 (*) Final Fasting? Unknown Final PROTIME Pro Time 11.9 Final I.N.R. 1.0 Final PTT PTT 29 Final INPATIENT ADD-ON Tests to be added HIV HEP C Final Number for problems Not Given Final Accession number [id number] Final BB DRAW- THREAD WEAVER ELECTROLYTES BUN CREATININE COMPLETE BLOOD COUNT HCV RNA DETECT QUANT RAPID HIV 1/2 ANTIGEN AND ANTIBODY, 4TH GENERATION TYPE AND SCREEN ABO O Final Rh Factor Positive Final Antibody Screen Negative Final Specimen Expires: 01/16/2018 @ 23:59 Final Relevant Data Procedures None ED COURSE A medical screening exam was performed. The patient was a 47 y.o. male who presented to the ED with one episode of hematemesis last night and one episode of melena and hematochezia today. He was evaluated by [facility] where he had a reassuring H&H but was hydrated with 3 liters of fluid and his H&H decreased. Physical exam significant for minimal epigastric and left upper quadrant tenderness. No further nausea or emesis in the ED. The patient has not had a subsequent bowel movement. 2199: Consultation with GI obtained. They agree to see the patient tomorrow and recommend clear liquids until midnight and n.p.o. after that. 2238: Discussed case with Hospitalist who agreed to admit the patient under Dr. Haney. Patient had labs that were reviewed independently by myself, significant for BUN of 32, creatinine of 0.55, hemoglobin of 7.5, hematocrit of 21.5, and normal coags. Blood type O positive. ASSESSMENT AND PLAN Final diagnoses: Upper GI bleed DISPOSITION: Admitted The patient's pain was managed to an adequate level weighing risk vs. benefit of further medications. Upon departure from the Emergency Department, the patient's pain was 6 on a zero to ten scale. Any further pain treatment will be at the discretion of the provider following up with the patient based on their clinical assessment. Condition at departure from the Emergency Department: Stable This documentation is recorded by Whit Baron acting as Scribe under the direction and presence of Michell Catalan MD. Michell Catalan MD: I personally performed the services recorded by the scribe in my presence. I confirm the scribe's documentation has been reviewed by me to accurately and completely record my work, treatment, procedures, and medical decision making. PCP: Doctor Unknown [facility] 01/13/2018 21:53 No flowsheet data found. Payton gallego RN - 01/13/2018 7655 EDT Er md provider at bedside eval pt oWaldo villarreal - 01/13/20182001 EDT TCALL: Mark Ross [birth year] CC: At [facility]. Low H/H (11.2 / 33, 8.8/26) UGI bleed. Hemodynamically stable. IV PPI. No etoh hx. On Methadone, Wellbutrin. Note taken by Dr. Catalan. ([facility]) documented in this encounter Miscellaneous Notes Plan of Care - Alexia Patel RN - 01/16/2018 1400 EDT Problem: Daily Care Plan Goals Goal: Care Plan Documentation Outcome: Met This Shift 01/16/18 0847 Care Plan Focus Area of Focus Discharge Plan Goal This Shift Pt will D/C today Nursing Discharge Note D: Patient noted with discharge orders to: Home. A: Prescriptions e-scripted. Reviewed discharge instructions and prescriptions with Patient IV d/c'd. Belongings collected and sent home with patient. R: Patient verbalized understanding of discharge instructions and denied further questions. Alexia Patel RN 01/16/2018 13:59 lan of Care - Yvonne Nicole - 01/16/2018 0953 EDT Initial Case Management/Social Work Assessment and Discharge Plan/Readmission Risk Assessment REASON FOR ADMISSION: Elida-Goodrich tear Patient understands reason for admission: Yes (I was vomiting blood, then I had dark stools. My sister drove me here.) PATIENT CONTACT INFO VERIFIED: Yes PATIENT ADDRESS VERIFIED: Yes (physical address is [address] [place] [address]) LIVING ARRANGEMENTS AND ACCESSIBILITY ISSUES: Living Arrangements: Spouse / significant other Levels: 1 Stairs to enter: 3 Handicap access: Railings into home Bathroom located on bedroom level?: Yes What in home social supports are available to the patient? Spouse / significant other, Family member(s), Friends / neighbors Is 13/01 care available? No ADVANCED DIRECTIVES, POA &/or COLST IN PLACE: Healthcare Directive: No, patient does not have advance directive for healthcare treatment Information Provided on Healthcare Directives: Yes Information on Healthcare Directives Requested: No DIRECTIVES FOR FINANCES: Directive For Finances: No TRANSPORTATION: Transportation: Family (Aunt) CULTURAL, CHEONDOISM and/or LANGUAGE factors affecting health care/discharge planning: Spiritual/Cultural Requests: None Any factors affecting health care/discharge planning?: (P) No Insurance in Place: (P) Yes Medical Insurance: (P) Yes Type of insurance: (P) Medicaid Medicaid Type: (P) Community Referred to patient financial services: (P) No DISCHARGE RISK ASSESSMENT: (P) None of the above risks identified Total # selected above: (P) Score: Zero Tentative plan to address the risk of re-hospitalization for those at HIGH MODERATE RISK: RAPT TOOL: Age: (P) (< 50) Gender: (P) Male Ambulation distance: (P) 2 or more blocks (600ft) Gait device: (P) None Community Services: (P) Home health, MOW, SASH-none of one time a week Will you live with someone who will care for you?: (P) No RAPT Tool Score: (P) 7 Patient expects to be discharged to: (P) Home SBIRT: SASQ (Single Alcohol Screening Question) How many times in the past year have you had 5 or more drinks in a single day?: (P) (Patient had visitors - deferred question) How many times in the past year have you used an illegal drug or used a prescription medication for non-medical reasons?: (P) (Patient had visitors - deferred conversation) Intervention in place/initiated?: (P) Other (Comment) (did not discuss substance abuse during assessment d/t visitors) FUNCTIONAL STATUS: Activities patient requires assistance: None Assistive Device: None COMMUNITY RESOURCES/SUPPORTS: Primary Care Provider: Cm Neri PCP Verified: Yes Specialists: (P) (Outpt visits with [facility] after discharge) Type of Home Health Services: None DME Provider: Pharmacy: No Pharmacies Listed Home Health: Other: (P) (n/a) POST HOSPITAL TRANSITION PLAN: Mr. Ross intends to return home, where he lives with his spouse, following discharge. His aunt will pick him up. He does not anticipate needing any VNA or other services at home. Yvonne Nicole 01/16/2018 9:53 lan of [place] - Jody Perry RN - 01/15/2018 2241 EDT Problem: Daily Care Plan Goals Goal: Care Plan Documentation Outcome: Ongoing 01/15/182033 Care Plan Focus Area of Focus GI//Elimination Goal This Shift Will monitor for signs of bleed Data: Admitted with Elida Goodrich tear at [facility]. Hct 23.3 Hgb 8.3. 1 u PRBC yesterday. Asymptomatic. Maroon colored BM on evening shift witnessed by prior RN. Action: Vitals remain stable. No additional complaints. Recheck CBC in am. Monitoring for acute changes Response: Resting at this time, able to make needs known. Jody Perry RN 01/15/2018 22:39 Problem: Safety: Goal: Ability to remain free from injury related to excessive bleeding will improve Outcome: Ongoing lan of Alexia Zambrano RN - 01/15/2018 1501 EDT Problem: Daily Care Plan Goals Goal: Care Plan Documentation Outcome: Met This Shift 01/15/18 0950 Care Plan Focus Area of Focus Mobility Goal This Shift pt will ambulate in halls x 3 Data: Pt A&O x3, ambulating independently in halls , rating pain 0/10, no complaints of nausea, VSS, voiding, on regular diet. Action: Assess and medicate for pain and nausea, encourage ambulation, offer assistance as needed, call light with in reach, bed in lowest position. Response: Will continue to monitor. nesthesia Post-Eval - Hillary Bradford - 01/15/2018 0906 EDT Anesthesia Post op Note Mark Ross [id number] Anesthesia received: General; Vital Signs: Temp: 36.6 ??C (97.9 ??F), Heart Rate: 80 BPM, Pulse: 87, BP: 111/63, Resp: 14, SpO2: 100 % Vital signs Stable: Yes Consciousness: Recovered to baseline Patient's participation in evaluation:Able to participate Temperature Status: Normothermic Respiratory Status: Airway patent Supplemental O2: Room air Oxygen Saturation: Appropriate for condition Cardiovascular Status: Appropriate for condition Post-op Hydration: Adequate Nausea / Vomiting: None Pain Control: Adequate Current Pain Score: Numeric Pain Level (Scale 1-10): 0 Post-op Assessment: Tolerated procedure well Disposition: Inpatient Complications: No apparent anesthetic complications Hillary Bradford 01/15/2018 9:05 lan of Care - Jody Perry RN - 01/15/2018 0044 EDT Problem: Daily Care Plan Goals Goal: Care Plan Documentation Outcome: Ongoing 01/15/18 0014 Care Plan Focus Area of Focus Other Goal This Shift Monitor for signs of bleeding Data: HD# 2. Pt admitted with hematemesis and found to have Elida-Goodrich tear. 2u PRBC administered. Finished second bag at 0026. Pt reports feeling much better. Denies chest pain or SOB. Denies any adverse reactions from blood transfusion. Vitals stable. CBC redraw at 0600. Last Hct 19.9 Action: Encouraged pt to notify this casualty underwriter if he notices any acute changes. Will obtain second PIV in am if H&H drops. Clustered care to allow for rest. Masimo on. Response: Pt resting at this time. Appropriate and able to make needs known. Will monitor for signs of bleeding Jody Perry RN 01/15/2018 0:39 Problem: Safety: Goal: Ability to remain free from injury related to excessive bleeding will improve Outcome: Ongoing lan of Alexia Zambrano RN - 01/14/2018 1532 EDT Problem: Daily Care Plan Goals Goal: Care Plan Documentation Data: Pt A&O x3, ambulating contact guard assist , rating pain 2/10, no complaints of nausea, tachy into 120's, voiding, NPO for endo H&H low and symptomatic PRBC ordered. Action: labs obtained, Assess and medicate for pain and nausea, offer assistance as needed, call light with in reach, bed in lowest position. Response: Pt in Endo now blood with need to be hung on return to floor. lan of Damaris Garcia RN - 01/14/2018 0453 EDT Problem: Daily Care Plan Goals Goal: Care Plan Documentation Outcome: Met This Shift 01/14/18 0049 Care Plan Focus Area of Focus Other Goal This Shift admit Data: Pt admitted for upper GI bleed. Pt denying any pain or significant discomforts. Hct 21.5 and hgb 7.1 on most recent draw, with orders for Q12 CBC. Pt has not had BM since admission. All VS WNL. Pt reports getting a little dizzy when getting OOB. Action: Completed admission database, oriented pt to unit. Clustered care to promote a restful environment, masimo on, hourly checks. Response: Pt sleeping for most of night. Plan for endoscopy today. Will continue to monitor. Damaris Lord RN 01/14/2018 4:47 documented in this encounter Plan of Treatment Pending Results Name Type Priority Associated Diagnoses Date/Ti me TRANSFUSE RED BLOOD CELLS Transfuse Routine Scheduled Referrals Name Type Priority Associated Order Schedule Diagnoses AMB CONS/FOLLOW UP Outpatient Routine Acute blood loss Order ed: PRIMARY CARE PHYSICIAN Referral anemia 01/16/2018 Elida-Goodrich te ar Upper GI bleed AMB CONS/FOLLOW UP Outpatient Routine Upper GI blee d Ordered: GASTROENTEROLOGY Referral Acute blood loss 018 anemia Elida-Goodrich tear documented as of this encounter Procedures Procedure Name Priority Date/Time Associated Comments Diagnosis UPPER ENDOSCOPY Routine 01/29/2018 8:43 Results f or this PROCEDURE EDT procedure are i n the results section. TRANSFUSION RECORD - 01/20/2018 13:37 SCANNED EDT COMPLETE BLOOD COUNT Routine 01/16/2018 6:52 Resu lts for this EDT procedure are i n the results section. COMPLETE BLOOD COUNT Routine 01/15/2018 17:57 Res ults for this EDT procedure are i n the results section. ABO/RH Routine 01/15/2018 14:11 Results for this EDT procedure are i n the results section. INPATIENT ADD-ON Routine 01/15/2018 11:35 Results for this EDT procedure are i n the results section. PREPARE RED BLOOD Routine 01/15/2018 11:12 Result s for this CELLS EDT procedure are i n the results section. COMPLETE BLOOD COUNT Routine 01/15/2018 6:27 Resu lts for this EDT procedure are i n the results section. TRANSFUSE RED BLOOD Routine 01/14/2018 21:15 CELLS EDT PREPARE RED BLOOD Routine 01/14/2018 20:56 Result s for this CELLS EDT procedure are i n the results section. COMPLETE BLOOD COUNT Routine 01/14/2018 20:27 Res ults for this EDT procedure are i n the results section. ABO/RH Routine 01/14/2018 13:00 Results for this EDT procedure are i n the results section. PREPARE RED BLOOD Routine 01/14/2018 10:11 Result s for this CELLS EDT procedure are i n the results section. COMPLETE BLOOD COUNT Routine 01/14/2018 6:35 Resu lts for this EDT procedure are i n the results section. BUN Routine 01/14/2018 6:35 Results for this EDT procedure are i n the results section. CREATININE Routine 01/14/2018 6:35 Results for this EDT procedure are i n the results section. ELECTROLYTES Routine 01/14/2018 6:35 Results for this EDT procedure are i n the results section. INPATIENT ADD-ON Routine 01/14/2018 1:50 Results for this EDT procedure are i n the results section. HCV RNA DETECT QUANT Routine 01/13/2018 23:02 Res ults for this EDT procedure are i n the results section. ABO/RH STAT 01/13/2018 23:02 Results for this EDT procedure are i n the results section. ABO/RH Routine 01/13/2018 23:02 Results for this EDT procedure are i n the results section. ABO/RH Routine 01/13/2018 23:02 Results for this EDT procedure are i n the results section. RAPID HIV 1/2 ANTIGEN Routine 01/13/2018 23:02 Re sults for this AND ANTIBODY, 4TH EDT procedure are in GENERATION the results section. PTT STAT 01/13/2018 23:02 Results for this EDT procedure are i n the results section. PROTIME STAT 01/13/2018 23:02 Results for this EDT procedure are i n the results section. COMPLETE BLOOD COUNT STAT 01/13/2018 23:02 Res ults for this AND DIFFERENTIAL EDT procedure a re in the results section. TYPE AND SCREEN STAT 01/13/2018 23:02 Results for this EDT procedure are i n the results section. BASIC METABOLIC PANEL STAT 01/13/2018 23:02 Re sults for this (BMP) EDT procedure are i n the results section. documented in this encounter Results UPPER ENDOSCOPY PROCEDURE (01/29/2018 8:43 EDT) Specimen Narrative [facility] ENDOSCOPY - 8 8:43 EDT Procedure Performed EGD - 47yo male presenting with hemateme sis Indications for Exam GIB Procedure Technique A physical exam was performed. Informed consent was obtained from the patient after explaining all the risks (perforation, bleeding, in fection and adverse effects to the medicine), benefits and alternatives to the procedure which the patient appeared to understand and so stated. ??The patient was connected to the monitoring devices and placed in the left lateral position. Continuous oxygen was provided with a na yuliet cannula and IV medicine administered through a indwelling cannula. After adequate sedat ion was achieved the gastroscope was inserted under direct vision into the esophagus and the n carefully advanced to the Second Part of Duodenum. The Second Part of Duodenum was identifi ed by visual landmarks. The scope was subsequently removed slowly while carefully examining the color, texture, anatomy, and integrity of the mucosa on withdrawal. The patient was barrientos bsequently transferred to the recovery area in satisfactory condition. Estimated Blood Loss: None Complications None Medications See Anesthesia Record I was in continuous face to face attenda nce during the administration of moderate sedation services that were monitored by an indep endent trained observer who had no other duties during the procedure. ??Total sedation time was 15 ?? minutes. Findings Esophagus - Elida Goodrich Tear at [facility] ction Stomach - normal Duodenum - normal Diagnosis Esophagus - Elida Goodrich Tear at [facility] Stomach - normal Duodenum - normal Recommendations PPI once daily Follow-up with referring physician. The??procedure??was??performed??by??Dr. Ricky Chou M.D. in the presence of Dr. Matthieu Bertrand. The attending physician was in the room for the entire procedure. This electronic signature authenticates all electronic and/or handwritten documentation, including orders, generated by the chelsey r during the episode of care contained in this record. 01/29/2018 08:43:48 AM By Matthieu Bertrand MD Performing Organization Address City/State/ZIP Code Phon e Number [facility] ENDOSCOPY TRANSFUSION RECORD - SCANNED (01/20/2018 13:37 EDT) Specimen Narrative This result has an attachment that is no t available. (ABNORMAL) COMPLETE BLOOD COUNT (01/16/2018 6:52 EDT) Pathologist Sig nature WBC 7.97 4.0 - 10.4 K/cmm [facility] LABORATORY SERVICES RBC 2.70 (L) 4.36 - 5.78 M/cmm [facility] SERVICES Hemoglobin 8.5 (L) 13.8 - 17.3 gm/dl [facility] SERVICES HCT 23.9 (L) 39.5 - 50.2 % [facility]OR[facility]ORY SERVICES MCV 89 81 - 95 fl [facility] SERVICES MCH 31.5 27.6 - 33.0 pg [facility] SERVICES MCHC 35.6 32.8 - 36.4 gm/dl [facility] SERVICES RDW-CV 13.7 <14.2 % [facility]OR[facility]ORY SERVICES RDW-SD 43.8 <46.0 fl [facility] LABORATORY SERVICES PLT 203 141 - 377 [facility] MPV 9.6 9.5 - 12.7 fl [facility] LABORATORY SERVICES Specimen Blood specimen (specimen) - Blood Performing Organization Address City/[facility]/ZIP [facility] Phon e Number [facility] LABORATORY [address] [place] [address] SERVICES (ABNORMAL) COMPLETE BLOOD COUNT (01/15/2018 17:57 EDT) Pathologist Sig nature WBC 7.43 4.0 - 10.4 [facility] RBC 2.67 (L) 4.36 - 5.78 [facility] Hemoglobin 8.3 (L) 13.8 - 17.3 gm/dl [facility]ORATORY SERVICES HCT 23.3 (L) 39.5 - 50.2 % [facility]OR[facility]ORY SERVICES MCV 87 81 - 95 fl [facility] SERVICES MCH 31.1 27.6 - 33.0 pg [facility]ORY SERVICES MCHC 35.6 32.8 - 36.4 gm/dl [facility] LABORATORY SERVICES RDW-CV 13.5 <14.2 % [facility] LABORATORY SERVICES RDW-SD 42.5 <46.0 fl [facility] LABORATORY SERVICES PLT 188 141 - 377 K/[facility] LABORATORY SERVICES MPV 10.1 9.5 - 12.7 fl [facility] LABORATORY SERVICES Specimen Blood specimen (specimen) - Blood Performing Organization Address City/[facility]/ZIP Code Phon e Number [facility] LABORATORY [address] [place] [address] SERVICES ABO/RH (01/15/2018 14:11 EDT) Pathologist Sig nature ABO O [facility] Comment: BLOOD BANK Patient is electronic crossmatch eligible. Units available upon request for transfusion. Rh Factor Negative [facility] BLOOD BANK Specimen Performing Organization Address City/State/ZIP Code Phon e Number [facility] BLOOD BANK [address] [facility] [place], [place] [id number] [place] [address] BLOOD BANK INPATIENT ADD-ON (01/15/2018 11:35 EDT) Tests to be added AB/RH [facility] [place] [id number] [facility] problems LABORATORY SERVICES Accession number CALLED B6 WITH [facility] INABILITY TO LABORATORY SERVICES PERFORM ABRH DUE TO NO SUITABLE SAMPLE SPOKE TO DANIEL Specimen Other Performing Organization Address City/[facility]/ZIP Code Phon e Number [facility] LABORATORY [address] [place] [address] SERVICES PREPARE RED BLOOD CELLS (01/15/2018 11:12 EDT) Product Code [id number] [facility] BLOOD BANK Donor Number [id number] [facility] BLOOD BANK Unit ABO O [facility] BLOOD BANK Unit Rh NEG [facility] BLOOD BANK Unit Status TR^Transfuse [facility] BLOOD BANK Product Expiration [id number] [facility] Date BLOOD BANK Unit Blood Type Code 9500 [facility] BLOOD BANK Coding System [id number] [facility] BLOOD BANK Specimen Blood specimen (specimen) Performing Organization Address [facility] Phon e Number [facility] BLOOD BANK [address] BLOOD BANK (ABNORMAL) COMPLETE BLOOD COUNT (01/15/2018 6:27 EDT) Pathologist Sig nature WBC 6.43 4.0 - 10.4 [facility] RBC 2.32 (L) 4.36 - 5.78 M/[facility] LABORATORY SERVICES Hemoglobin 7.3 (L) 13.8 - 17.3 gm/dl [facility] LABORATORY SERVICES HCT 20.1 (LL) 39.5 - 50.2 % [facility] LABORATORY SERVICES MCV 87 81 - 95 fl [facility]ORATORY SERVICES MCH 31.5 27.6 - 33.0 pg [facility] LABORATORY SERVICES MCHC 36.3 32.8 - 36.4 gm/dl [facility] LABORATORY SERVICES RDW-CV 13.5 <14.2 % [facility] LABORATORY SERVICES RDW-SD 42.1 <46.0 fl [facility] LABORATORY SERVICES PLT 173 141 - 377 K/[facility] LABORATORY SERVICES MPV 10.1 9.5 - 12.7 fl [facility] LABORATORY SERVICES Specimen Blood specimen (specimen) - Blood Performing Organization Address City/[facility]/ZIP Code Phon e Number [facility] LABORATORY [address] [place] [address] SERVICES PREPARE RED BLOOD CELLS (01/14/2018 20:56 EDT) Product Code [id number] [facility] BLOOD BANK Donor Number [id number] [facility] BLOOD BANK Unit ABO O [facility] BLOOD BANK Unit Rh NEG [facility] BLOOD BANK Unit Status TR^Transfuse [facility] BLOOD BANK Product Expiration [id number] [facility] Date BLOOD BANK Unit Blood Type Code 9500 [facility] BLOOD BANK Coding System [id number] [facility] BLOOD BANK Specimen Blood specimen (specimen) Performing Organization Address [facility] Phon e Number [facility] BLOOD BANK [address] [facility] [place] [address] [facility] BLOOD BANK (ABNORMAL) COMPLETE BLOOD COUNT (01/14/2018 20:27 EDT) Pathologist Sig nature WBC 7.20 4.0 - 10.4 [facility] RBC 2.24 (L) 4.36 - 5.78 M/[facility] LABORATORY SERVICES Hemoglobin 7.0 (L) 13.8 - 17.3 gm/dl [facility] LABORATORY SERVICES HCT 19.9 (LL) 39.5 - 50.2 % [facility] LABORATORY SERVICES MCV 89 81 - 95 fl [facility] LABORATORY SERVICES MCH 31.3 27.6 - 33.0 pg [facility] LABORATORY SERVICES MCHC 35.2 32.8 - 36.4 gm/dl [facility] LABORATORY SERVICES RDW-CV 13.7 <14.2 % [facility] LABORATORY SERVICES RDW-SD 44.9 <46.0 fl [facility] LABORATORY SERVICES PLT 181 141 - 377 K/[facility] LABORATORY SERVICES MPV 10.0 9.5 - 12.7 fl [facility] LABORATORY SERVICES Specimen Blood specimen (specimen) - Blood Performing Organization Address [facility] Code Phon e Number [facility] LABORATORY [address] [place] [address] SERVICES ABO/RH (01/14/2018 13:00 EDT) Pathologist Sig nature ABO O [facility] BLOOD BAN K Rh Factor Negative [facility] BLOOD BAN K Specimen Blood specimen (specimen) Performing Organization Address [facility]/ZIP Code Phon e Number [facility] BLOOD BANK [address] BLOOD BANK PREPARE RED BLOOD CELLS (01/14/2018 10:11 EDT) Product Code [id number] [facility] BLOOD BANK Donor Number [id number] [facility] BLOOD BANK Unit ABO O [facility] BLOOD BANK Unit Rh NEG [facility] BLOOD BANK Unit Status TR^Transfuse [facility] BLOOD BANK Product Expiration [id number] [facility] Date BLOOD BANK Unit Blood Type Code 9500 [facility] BLOOD BANK Coding System [id number] [facility] BLOOD BANK Specimen Blood specimen (specimen) Performing Organization Address [facility] Phon e Number [facility] BLOOD BANK [address] BLOOD BANK (ABNORMAL) COMPLETE BLOOD COUNT (01/14/2018 6:35 EDT) Pathologist Sig nature WBC 6.79 4.0 - 10.4 K/cmm [facility] LABORATORY SERVICES RBC 2.39 (L) 4.36 - 5.78 [facility] Hemoglobin 7.4 (L) 13.8 - 17.3 gm/dl [facility] LABORATORY SERVICES HCT 21.2 (L) 39.5 - 50.2 % [facility] LABORATORY SERVICES MCV 89 81 - 95 fl [facility] LABORATORY SERVICES MCH 31.0 27.6 - 33.0 pg [facility] LABORATORY SERVICES MCHC 34.9 32.8 - 36.4 gm/dl [facility] LABORATORY SERVICES RDW-CV 13.3 <14.2 % [facility] LABORATORY SERVICES RDW-SD 43.4 <46.0 fl [facility] LABORATORY SERVICES PLT 200 141 - 377 K/[facility] LABORATORY SERVICES MPV 10.0 9.5 - 12.7 fl [facility] LABORATORY SERVICES Specimen Blood specimen (specimen) - Blood Performing Organization Address City/[facility]/ZIP Code Phon e Number [facility] LABORATORY [address] [place] [phone] SERVICES (ABNORMAL) CREATININE (01/14/2018 6:35 EDT) Creatinine 0.64 (L) 0.66 - 1.25 [facility] mg/dl LABORATORY SERVICES GFR, Calculated 118 >60 [facility] Comment: ml/min/1.73m2 LABORATORY eGFR calculated using CKD-EPI equation for SERVICES non Americans. Multiply eGFR by 1.16 for Americans. Specimen Blood specimen (specimen) - Blood Performing Organization Address City/[facility]/ZIP Code Phon e Number [facility] LABORATORY [address] [place] [address] SERVICES (ABNORMAL) BUN (01/14/2018 6:35 EDT) Pathologist Sig nature BUN 31 (H) 10 - 26 mg/dl [facility] LABORATO RY SERVICES Specimen Blood specimen (specimen) - Blood Performing Organization Address [facility]/ZIP Code Phon e Number [facility] LABORATORY [address] [place] [address] SERVICES ELECTROLYTES (01/14/2018 6:35 EDT) Pathologist Sig nature Sodium 137 136 - 145 mEq/L [facility] LABORA TORY SERVICES Potassium 4.2 3.5 - 5.0 mEq/L [facility] LABORA TORY SERVICES Chloride 107 96 - 110 mEq/L [facility] LABORAT ORY SERVICES CO2 24 22 - 32 mEq/L [facility] LABORATO RY SERVICES Specimen Blood specimen (specimen) - Blood Performing Organization Address [facility]/ZIP [facility] Phon e Number [facility] LABORATORY [address] [place] [address] SERVICES INPATIENT ADD-ON (01/14/2018 1:50 EDT) Pathologist Sig nature Tests to be added HIV HEP C [facility] LABORATORY SERVICES Number for problems Not Given [facility] LABORATORY SERVICES Accession number [id number] [facility] LABORATORY SERVICES Specimen Other Performing Organization Address City/[facility]/ZIP Code Phon e Number [facility] LABORATORY [address] [place] [address] SERVICES ABO/RH (01/13/2018 23:02 EDT) Pathologist Sig nature ABO O [facility] BLOOD BAN K Rh Factor Negative [facility] BLOOD BAN K Specimen Blood specimen (specimen) Performing Organization Address City/[facility]/ZIP Code Phon e Number [facility] BLOOD BANK [address] [facility] [place], [place] [id number] [place] [address] BLOOD BANK ABO/RH (01/13/2018 23:02 EDT) Pathologist Sig nature ABO O [facility] BLOOD BAN K Rh Factor Negative [facility] BLOOD BAN K Specimen Performing Organization Address City/[facility]/ZIP Code Phon e Number [facility] BLOOD BANK [address] [facility] BLOOD BANK ABO/RH (01/13/2018 23:02 EDT) Pathologist Sig nature ABO OComment: This result [facility] is revised from [facility] BLOOD BANK result, resulted on 01/14/2018 1:41:40 AM Rh Factor Negative [facility] BLOOD BANK Specimen Performing Organization Address [facility]/ZIP [facility] Phon e Number [facility] BLOOD BANK [address] BLOOD BANK RAPID HIV 1/2 ANTIGEN AND ANTIBODY, 4TH GENERATION (01/13/2018 23:02 EDT) Rapid HIV 1/2 Ab Negative Negative [facility] Comment: LABORATORY SERVICES Fourth generation assay performed on the [employer]. If acute HIV-1 infection is suspected in a high risk patient, submit plasma specimen for HIV-1 RNA quantification test. The results of this assay can be falsely lowered due to the consumption of Biotin. Specimen Blood Performing Organization Address [facility]/ZIP Code Phon e Number [facility] [address] [place] [address] SERVICES HCV RNA DETECT QUANT (01/13/2018 23:02 EDT) [facility] HCV RNA Detect Undetected Undetected IU/mL [facility] Comment: CENTER Reference Range: ??Undetected LABORATORY The quantification range of this assay is 15 SERVICES IU/mL to 100,000,000 IU/mL. Testing was performed by the [employer] Ampl[employer]/Johnson TaqMan HCV v2.0 ([employer] Specimen Blood Performing Organization Address City/[facility]/ZIP Code Phon e Number [facility] [address] [place] [address] SERVICES TYPE AND SCREEN (01/13/2018 23:02 EDT) ABO CANCELED [facility] Comment: BLOOD BANK See CORRECTED REPORT: Patient is weak D POS and we conclude these patients as Rh NEG Result canceled by the ancillary Rh Factor CANCELED [facility] Comment: BLOOD BANK See CORRECTED REPORT: Patient is weak D POS and we conclude these patients as Rh NEG Result canceled by the ancillary Antibody Screen Negative [facility] BLOOD BANK Specimen Expires: 01/16/2018 @ 23:59 [facility] R BLOOD BANK Specimen Blood specimen (specimen) Performing Organization Address [facility]/ZIP Code Phon e Number [facility] BLOOD [facility] [address] [facility] [place], [place] [id number] [place] [address] BLOOD BANK PTT (01/13/2018 23:02 EDT) Pathologist Sig nature PTT 29 26 - 37 secs [facility] LABORATOR Y SERVICES Specimen Blood specimen (specimen) - Blood Performing Organization Address [facility]/ZIP [facility] Phon e Number [facility] [address] [place] [address] SERVICES PROTIME (01/13/2018 23:02 EDT) Pro Time 11.9 10.3 - 13.4 [facility] secs LABORATORY SERVICES I.N.R. 1.0 0.9 - 1.1 [facility] Comment: Ratio LABORATORY SERVICES Moderate Intensity Coumadin INR = 2.0-3.0 Adjustments in anticoagulant therapy dose should be based upon the INR and NOT the Pro Time. Specimen Blood specimen (specimen) - Blood Performing Organization Address [facility] Phon e Number [facility] [address] [place] [address] SERVICES (ABNORMAL) BASIC METABOLIC PANEL (BMP) (01/13/2018 23:02 EDT) Sodium 134 (L) 136 - 145 [facility] mEq/L LABORATORY SERVICES Potassium 3.8 3.5 - 5.0 [facility] mEq/L LABORATORY SERVICES Chloride 107 96 - 110 [facility] mEq/L LABORATORY SERVICES CO2 21 (L) 22 - 32 mEq/L [facility] SERVICES BUN 32 (H) 10 - 26 mg/dl [facility] SERVICES Creatinine 0.55 (L) 0.66 - 1.25 [facility] mg/dl LABORATORY SERVICES GFR, Calculated 126 >60 [facility] Comment: ml/min/1.73m2 LABORATORY eGFR calculated using CKD-EPI equation for SERVICES non Americans. Multiply eGFR by 1.16 for Americans. Calcium 7.8 (L) 8.5 - 10.5 [facility] mg/dl LABORATORY SERVICES Calculated Calcium 8.8 8.5 - 10.5 [facility] mg/dl LABORATORY SERVICES Glucose, Serum 103 (H) 70 - 100 [facility] mg/dl LABORATORY SERVICES Fasting? Unknown [facility] SERVICES Specimen Blood specimen (specimen) - Blood Performing Organization Address City/State/ZIP Code Phon e Number [facility] [address] [place] [address] SERVICES (ABNORMAL) COMPLETE BLOOD COUNT AND DIFFERENTIAL (01/13/2018 23:02 EDT) Pathologist Sig nature WBC 7.70 4.0 - 10.4 [facility] K/[facility] LABORATORY SERVICES RBC 2.42 (L) 4.36 - 5.78 [facility] M/[facility] LABORATORY SERVICES Hemoglobin 7.5 (L) 13.8 - 17.3 [facility] gm/dl LABORATORY SERVICES HCT 21.5 (L) 39.5 - 50.2 % [facility] LABOR[facility]ORY SERVICES MCV 89 81 - 95 fl [facility] SERVICES MCH 31.0 27.6 - 33.0 pg [facility] LABORATORY SERVICES MCHC 34.9 32.8 - 36.4 [facility] gm/dl LABORATORY SERVICES RDW-CV 13.3 <14.2 % [facility] LABORATORY SERVICES RDW-SD 43.6 <46.0 fl [facility] LABORATORY SERVICES PLT 194 141 - 377 K/m [facility] SERVICES MPV 9.8 9.5 - 12.7 fl [facility] SERVICES Neutrophils 53.5 % [facility] SERVICES Lymphocytes 37.5 % [facility] SERVICES Monocytes 7.7 % [facility] SERVICES Eosinophils 0.5 % [facility] SERVICES Basophils 0.4 % [facility] SERVICES Immature Grans 0.4 % [facility]OR[facility] SERVICES ABS Neutrophils 4.12 2.20 - 8.85 [facility] K/cm LABORATORY SERVICES ABS Lymphs 2.89 1.09 - 3.30 [facility] K/[facility] LABORATORY SERVICES ABS Monocytes 0.59 0.1 - 0.8 K/[facility] LABORATORY SERVICES ABS Eosinophils 0.04 0.03 - 0.61 [facility] K/[facility] LABORATORY SERVICES ABS Basophils 0.03 0.01 - 0.11 [facility] K/[facility] LABORATORY SERVICES ABS Immature Grans 0.03 0 - 0.06 /[facility] LABORATORY SERVICES Type of Diff: Automated [facility] SERVICES Specimen Blood specimen (specimen) - Blood Performing Organization Address City/State/ZIP Code Phon e Number [facility] [address] [place] [address] SERVICES documented in this encounter Visit Diagnoses Diagnosis Elida-Goodrich tear - Primary Gastroesophageal laceration-hemorrhage s yndrome Upper GI bleed Hemorrhage of gastrointestinal tract, un specified Acute blood loss anemia Acute posthemorrhagic anemia documented in this encounter Administered Medications Inactive Administered Medications - up to 3 most recent administrations Medication Order MAR Action Action Date Dose Rate Site atropine 0.1 mg/mL syringe 0.25-1 mg 0.25-1 mg, intravenous, PRN, 1 dose, Starting on Fri at 1436, Until Fri01/16/18 at 1623, Symptomatic HR < 50, Routine, Intrapr ocedure buPROPion (WELLBUTRIN XL) XL tablet 300 mg Given 01/16/2018 8:28 EDT 300 mg 300 mg, oral, DAILY, First dose on Fri01/14/18 at 0900, Until Discontinued, Routine Given 01/15/2018 9:23 EDT 300 mg Given 01/14/2018 8:33 EDT 300 mg flumazenil (ROMAZICON) injection 0.2 mg 0.2 mg, intravenous, PRN, Starting on Fri01/14/18 at 1 436, Until Fri01/16/18 at 1623, benzodiazepine reversal, Routine, Intraprocedure indomethacin (INDOCIN) rectal suppositor y suppository 50 mg 50 mg, rectal, PRN, 2 doses, Starting on Fri01/14/18 at 1436, Until Fri01/16/18 at 1623, Pain, Routine, Preprocedure methadone (DOLOPHINE) concentrated solution 80 Given 018 17:42 EDT 80 mg mg 80 mg, oral, EVERY 24 HOURS, First dose on Fri01/14/18 at 1745, Until Discontinued, STAT Given 01/14/2018 18:26 EDT 80 mg methadone (DOLOPHINE) concentrated solution 80 Given 018 13:18 EDT 80 mg mg 80 mg, oral, NOW X1, 1 dose, On Fri01/16/18 at 1215, STAT naloxone (NARCAN) injection 0.4 mg 0.4 mg, intravenous, PRN, Starting on Fri01/14/18 at 1 436, Until Fri01/16/18 at 1623, Opioid Reversal, Routine, Intraprocedure nicotine (NICOTROL) 10 mg inhaler 1 Inha ler Given 01/16/2018 10:50 EDT 1 Inhaler 1 Inhaler, inhalation, EVERY 2 HOURS PRN, Starting on Fri01/14/18 at 0155, Until Fri01/16/18 at 1623, Smoking Cessation, Routine Given 01/16/2018 6:28 EDT 1 Inhaler Given 01/15/2018 20:05 EDT 1 Inhaler nicotine inhaler (delivery device) Given 01/14/2018 21:41 EDT 1 Each 1 Each, inhalation, PRN, Starting on Fri01/14/18 at 0155, Until Fri01/16/18 at 1623, Smoking Cessation pantoprazole (PROTONIX) injection 40 mg Given 01/13/2018 22:33 EDT 40 mg 40 mg, intravenous, NOW X1, 1 dose, On Fri01/13/18 at 2230, STAT pantoprazole (PROTONIX) injection 40 mg Given 01/14/2018 8:33 EDT 40 mg 40 mg, intravenous, 2 TIMES DAILY, First dose on Fri01/14/18 at 0100, Until Discontinued, Routine pantoprazole (PROTONIX) tablet 40 mg Given 01/16/2018 8:27 EDT 40 mg 40 mg, oral, DAILY, First dose on Fri01/15/18 at 0900, Until Discontinued, Routine Given 01/15/2018 9:23 EDT 40 mg sodium chloride 0.9 % (NS) infusion Rate Documented 01/14/2018 0:42 EDT 100 mL/hr at 100 mL/hr, intravenous, CONTINUOUS, Starting on Fri01/13/18 at 2215, Until Fri01/14/18 at 0158, STAT New Bag 01/13/2018 22:24 EDT 100 mL/hr sodium chloride 0.9 % flush 3 mL 3 mL, intravenous, PRN, Starting on Fri01/14/18 at 1436, Until Fri01/16/18 at 1623, Line Care, Routine, Preprocedure documented in this encounter Historical Medications This list may reflect changes made after this encounter. Medication Sig Dispensed Refills Start Date End Date buPROPion (WELLBUTRIN XL) Take 300 mg by mouth 0 300 mg XL daily. tabletIndications: major depressive disorder methadone (DOLOPHINE) 10 Take 80 mg by mouth 0 mg tabletIndications: daily. opioid dependence added in this encounter Active and Recently Administered Medications Times are shown in EDT. Scheduled Medication Order 01/14/2018 01/15/2018 01/16/2018 buPROPion (WELLBUTRIN XL) XL tablet 300 mg 0833 (Given - Provider: Alexia Patel, CHRIS) 0923 (Given - Provider: Alexia Patel, RN) 0828 (Giv en - Provider: Alexia Patel RN) 300 mg, oral, DAILY, First dose on Fri at 0900, Until Discontinued, Routine methadone (DOLOPHINE) concentrated solution 80 mg (CAN CELED) 1826 (Given - Provider: Chani Sanchez RN) 1742 (Given - Provider: Chani Sanchez RN) 80 mg, oral, EVERY 24 HOURS, First dose on Fri01/14/18 at 1745, Until Discontinued, STAT methadone (DOLOPHINE) concentrated solution 80 mg (COMPLETED) 1318 (Given - Provider: Alexia Patel RN) 80 mg, oral, NOW X1, 1 dose, Fri01/16/18 at 1215, STAT pantoprazole (PROTONIX) injection 40 mg (CANCELED) 004 2 (Not Given - Provider: Damaris Lord RN - Reason: Other - Comment: given in ED)0833 (Given - Provider: Alexia Patel, RN) 40 mg, intravenous, 2 TIMES DAILY, First dose on Fri01/14/18 at 0100, Until Discontinued, Routine pantoprazole (PROTONIX) tablet 40 mg 092 3 (Given - Provider: Alexia Patel RN) 0827 (Given - Provider: Alexia Patel, RN) 40 mg, oral, DAILY, First dose on Fri at 0900, Until Discontinued, Routine Continuous Medication Order 01/14/2018 01/15/2018 01/16/2018 sodium chloride 0.9 % (NS) infusion (CANCELED) 0042 (R ate Documented - Provider: Damaris Lord RN)021 (Completed - Provider: Damaris Lord RN) at 100 mL/hr, intravenous, CONTINUOUS, S tarting Tu01/13/18 at 2215, Until Fri01/14/18 at 0158, STAT PRN Medication Order 01/14/2018 01/15/2018 01/16/2018 acetaminophen (TYLENOL) tablet 650 mg 650 mg, oral, EVERY 6 HOURS PRN, Startin g Fri01/14/18 at 0041, Until Fri01/16/18 at 1623, Fever, Routine atropine 0.1 mg/mL syringe 0.25-1 mg 0.25-1 mg, intravenous, PRN, 1 dose, Sta rting Fri01/14/18 at 1436, Until Fri01/16/18 at 1623, Symptomatic HR < 50, Routine flumazenil (ROMAZICON) injection 0.2 mg 0.2 mg, intravenous, PRN, Starting Fri at 1436, Until Fri01/16/18 at 1623, benzodiazepine reversal, Routine indomethacin (INDOCIN) rectal suppository suppository 50 mg 50 mg, rectal, PRN, 2 doses, Starting We 01/14/18 at 1436, Until Fri01/16/18 at 1623, Pain, Routine naloxone (NARCAN) injection 0.4 mg 0.4 mg, intravenous, PRN, Starting Fri at 1436, Until Fri01/16/18 at 1623, Opioid Reversal, Routine nicotine (NICOTROL) 10 mg inhaler 1 Inhaler 2140 (Give n - Provider: Whit Duffy RN) 1053 (Given - Provider: Alexia Patel, CHRIS)2004 (Given - Provider: Jody Perry, CHRIS) 06 (Given - Provider: Jody Perry RN)105 (Given - Provider: Alexia Patel, CHRIS) 1 Inhaler, inhalation, EVERY 2 HOURS PRN , Starting Fri01/14/18 at 0155, Until Fri01/16/18 at 1623, Smoking Cessation, Routine nicotine inhaler (delivery device) 2140 (Given - Provi hollie: Whit Duffy RN) 1 Each, inhalation, PRN, Starting Fri at 0155, Until Fri01/16/18 at 1623, Smoking Cessation sodium chloride 0.9 % flush 3 mL 3 mL, intravenous, PRN, Starting 12/22 at 1436, Until Fri01/16/18 at 1623, Line Care, Routine documented in this encounter Orders Medications Ordered That Might Not Have Count Last Ord ered Date First Ordered Date Been Administered acetaminophen (TYLENOL) tablet 650 mg 1 01/14/2018 atropine 0.1 mg/mL syringe 0.25-1 mg 1 01/14/2018 flumazenil (ROMAZICON) injection 0.2 mg 1 01/15/20 indomethacin (INDOCIN) rectal suppository 2017 suppository 50 mg lactated ringers (LR) infusion 01/14/2018 meperidine (PF) (DEMEROL) 100 mg/mL 1 01/14/2018 injection 25-200 mg midazolam (MDV) (VERSED) injection 1-10 mg 01/14 naloxone (NARCAN) injection 0.4 mg 1 01/14/2018 sodium chloride 0.9 % flush 3 mL 01/14/2018 pantoprazole (PROTONIX) injection 40 mg 1 01/14/20 18 Diet Count Last Ordered Date First Ordered Date DISCHARGE DIET 01/16/2018 Nursing Count Last Ordered Date First Ordered Date ACTIVITY INSTRUCTIONS 01/16/2018 BATHING INSTRUCTIONS 01/16/2018 CONTRAINDICATION TO ANTICOAGULATION 01/14/2018 THERAPY Admission Count Last Ordered Date First Ordered Date STATUS: INPATIENT ACUTE ADMISSION 01/14/2018 ED BED REQUEST 01/13/2018 Transfer Count Last Ordered Date First Ordered Date NOTIFY PPS OF DISCHARGE COMPLETE 01/16/2018 CHANGE ATTENDING TO: 01/14/2018 PPS NOTIFICATION OF PATIENT ARRIVAL ON 8 UNIT UR PATIENT STATUS CHANGE 01/14/2018 Discharge Count Last Ordered Date First Ordered Date DISCHARGE PATIENT 1 01/16/2018 Legal Count Last Ordered Date First Ordered Date MISCELLANEOUS DISCHARGE INSTRUCTIONS 01/16/2018 Transfuse Count Last Ordered Date First Ordered Date TRANSFUSE RED BLOOD CELLS 2 01/15/20182017 documented in this encounter 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
--- OUTSIDE RECORDS SUMMARY | 2022-01-07 11:49 | XMS_ITS | Clinical Summary ---
:1970 Author Organization [facility] Address [address] [place] [address] Care Team Providers Name Role Phone Cm Neri MD Primary Care Provider Allergies No known active allergies Medications Medication Sig Dispensed Refills Start Date End Date Status methadone Take 80 mg by 0 Active (DOLOPHINE) 10 mg mouth daily. tabletIndications: opioid dependence buPROPion Take 300 mg by 0 Activ e (WELLBUTRIN XL) 300 mouth daily. mg XL tabletIndications: major depressive disorder nicotine (NICOTROL) Inhale 1 cartridge 1 Cartridge 0 8 Active 10 mg inhaler as directed every 2 hours as needed for Smoking Cessation. Active Problems Problem Noted Date Sienna-Lerner tear 01/15/2018 Acute blood loss anemia 01/15/2018 Resolved Problems Problem Noted Date Resolved Date Upper GI bleed 01/13/2018 01/16/2018 Surgical History Surgery Date Site/Laterality Comments VASECTOMY WRIST SURGERY Medical History Medical History Date Comments Psychiatric problem Acid reflux disease 2014 Opioid abuse (HCC) Carpal tunnel syndrome Hiatal hernia Social History Tobacco Use Types Packs/Day Years Used Date Current Every Day Smoker Cigarettes 1 32 Smokeless Tobacco: Never Used Tobacco Cessation: Ready to Quit: No; Co unseling Given: Yes Alcohol Use Standard Drinks/Week Comments No 0 (1 standard drink = 0.6 oz pure alcoho l) Sex Assigned at Date Recorded Not on file Last Filed Vital Signs Vital Sign Reading [...] EDT Body Mass Index 23.06 01/14/20182012 EDT Plan of Treatment Health Maintenance Due Date Last Done Comments Pneumococcal Immunization (1 of 2 - PPSV23) 02/14/1978 Insurance Payer Benefit Plan Subscriber ID Effective Phone Address Typ e / Group Dates MEDICAID ACO MEDICAID ACO [id number] 2019-Pres [phone] [address] [place] [address] [place] [address] Advance Directives For more information, please contact: [phone] Latest Code Status on File Code Status Date Activated Date Inactivated Comments Full Code 01/14/2018 0:41 01/16/2018 16:28 Reason for decision includes: Full code consistent with over all plan of care Who participated in the discussion? Not Discussed Care Teams [employer] Hel[employer] Relationship Specialty Start Date End Date Cm Neri MD PCP - General 01/13/18
[2022-01-07] MEDS: Enoxaparin 40 MG/0.4 ML SYR SC (12:22)
[2022-01-07] MEDS: Lactated Ringers 1,000 ML 200 ML IV ×3 (12:23→23:14)
[2022-01-07] MEDS: Normal Saline Flush 10 ML SYR IVP ×4 (12:23→16:48)
[2022-01-07] MEDS: THIAMINE 100 MG in Normal Saline 100 ML 200 MG IVPB (12:37)
[2022-01-07] MEDS: Pantoprazole 40 MG VIAL IVP ×2 (12:37→23:18)
[2022-01-07 12:45] LABS: Lab Add On Test DONE
[2022-01-07 13:01] LABS: C-Reactive Protein 0.67 mg/dL (0.0-0.3)
[2022-01-07] MEDS: Ketorolac 30 MG/ML VIAL IVP ×2 (13:20→21:43)
[2022-01-07 13:23] LABS: Procalcitonin < 0.1 ng/mL
[2022-01-07 14:34] LABS: Triglyceride 58 mg/dL (<150)
[2022-01-07] MEDS: HYDROmorphone 2 MG/ML SYR 0.5 MG IVP (16:47)
[2022-01-07] MEDS: Mylanta Suspension 30 ML CUP PO (17:37)
--- NOTE | 2022-01-07 18:44 | W.PM.HP.N ---
Date of service: 01/07/22 Time of Service: 17:55 Assessment and Plan Assessment and plan (1) Pancreatitis, acute: Status: Acute Assessment and plan: Aggressive IVF x 24-48 hrs. Clear liquid diet. Pain control with toradol and IV dilaudid. Mointor LFTs. Encourage IS. Qualifiers: Pancreatitis type: alcohol induced Acute pancreatitis complication: no infection or necrosis Qualified Code(s): K85.20 - Alcohol induced acute pancreatitis without necrosis or infection (2) Opioid dependence on agonist therapy: Status: Chronic Assessment and plan: Continue methadone (3) Alcohol abuse, daily use: Status: Chronic Assessment and plan: Monitor for EtOH w/d (4) Tobacco dependence due to cigarettes: Status: Chronic Assessment and plan: Advised to quit. Provide nicotine replacement (5) GERD (gastroesophageal reflux disease): Status: Chronic Assessment and plan: IV PPI here. (6) DVT prophylaxis: Status: Acute Assessment and plan: SC enoxaparin (7) Discharge planning issues: Status: Acute Assessment and plan: Full code History of Present Illness History of Present Illness Chief Complaint: abdominal pain Narrative: Mr Ross is a 51 year old male with PMHx of prior episode of pancreatitis, alcohol and tobacco abuse, as well as GERD, depression, opioid dependence on methadone who presented to [facility] ED having woken up this morning with severe epigastric pain without nausea, diarrhea, or fever. The patient drinks 4 tall beers/day and denies h/o EtOH w/d or EtOH w/d seizures. His workup in the ED is c/w severe pancreatitis by CT. Hospitalist admission was requested. Review of Systems All systems reviewed & are unremarkable except as noted in HPI and below PFSH All Active Problems (Updated 01/07/22 @ 19:10 by Itzel Cole MD) GERD (gastroesophageal reflux disease) (Chronic) Discharge planning issues (Acute) DVT prophylaxis (Acute) Depression (Chronic) Tobacco dependence due to cigarettes (Chronic) Alcohol abuse, daily use (Chronic) Opioid dependence on agonist therapy (Chronic) Pancreatitis, acute (Acute) Medical History (Updated 01/07/22 @ 19:10 by Itzel Cole MD) Pancreatitis Family History (Updated 01/07/22 @ 19:12 by Itzel Cole MD) Maternal Uncle Heart disease Diabetes Mother Diabetes Maternal Uncle Cancer prostate cancer Social History Smoking/Tobacco Use Status: Current every day Tobacco Type: cigarettes Smoking risk assessment performed?: Yes Alcohol Intake: current Alcohol Intake frequency: 3 or more drinks per day Alcohol type: beer Drug use: Daily Substance use type: marijuana and crack/cocaine Do you feel safe at home: Yes Do you feel safe in your relationship?: Yes Meds Allergies and Home Medications Allergies Allergy/AdvReac Type Severity Reaction Status Date / Time No Known Allergies Allergy Unverified 01/07/22 07:47 Home Medications Medication Instructions Recorded Confirmed Type pantoprazole 40 mg tablet,delayed 90 mg PO DAILY 11/30/19 01/07/22 History release (Protonix) methadone 10 mg/mL oral 90 mg PO DAILY 01/07/22 01/07/22 History concentrate (Methadone Intensol) Exam Narrative Exam Narrative: General: Pleasant talkative male, A&Ox3, appears comfortable Neurological: A&Ox3, no focal deficits, not tremulous Psychiatric: mildly anxious Skin: Visible skin intact HEENT: Atraumatic, normocephalic, EOMI, MMM, clear ororpharynx, no submandibular or cervical lymphadenopathy, no goiter or JVD. Cardiovascular: RRR, no m/r/g Lungs: wheezing on expiration B Gastrointestinal: soft, epigastric pain, nondistended Genitourinary: deferred Extremities: no edema BLEs Results Imaging Additional studies: CT abdomen/pelvis: Severe pancreatitis with surrounding fluid as well as fluid extending into the pelvis.? Mild dilatation of the common bile duct and pancreatic duct.? No visible gallstones or evidence of acute cholecystitis. Labs Result diagrams: 01/07/22 08:05 01/07/22 08:05 Labs: Laboratory Results - last 24 hr 01/07/22 01/07/22 01/07/22 08:05 08:05 09:40 WBC 7.80 RBC 4.64 Hgb 14.5 Hct 41.2 MCV 89 MCH 31.3 MCHC 35.2 RDW 12.4 Plt Count 305 MPV 9.2 Immature Gran % 0.3 Neutrophils % 77.9 Lymphocytes % 14.4 Monocytes % 6.5 Eosinophils % 0.4 Basophils % 0.5 Nucleated RBC % 0.0 Absolute Neutrophils 6.08 Absolute Lymphocytes 1.12 L Absolute Monocytes 0.51 Absolute Eosinophils 0.03 Absolute Basophils 0.04 Sodium 133 L Potassium 3.7 Chloride 97 L Carbon Dioxide 25.6 Anion Gap 10.4 BUN 10 Creatinine 0.7 Estimated GFR/1.73 m2 >= 60.00 Glucose 163 H Calcium 9.0 Total Bilirubin 0.4 AST 25 ALT 34 Alkaline Phosphatase 119 H C-Reactive Protein Total Protein 8.2 Albumin 4.0 Triglycerides Lipase 7360 H Procalcitonin Urine Color Urine Clarity Urine pH Ur Specific [place] Urine Protein Urine Ketones Urine Blood Urine Nitrite Urine Bilirubin Urine Urobilinogen Ur Leukocyte Esterase Urine RBC Urine WBC Ur Epithelial Cells Urine Crystals Urine Bacteria Urine Casts Urine Mucus Ur Culture Indicated? Urine Glucose COVID-19 Source Nasal/Nares SARS-CoV-2 (PCR) Negative Add-On Test Request 01/07/22 01/07/22 01/07/22 09:48 12:32 12:32 WBC RBC Hgb Hct MCV MCH MCHC RDW Plt Count MPV Immature Gran % Neutrophils % Lymphocytes % Monocytes % Eosinophils % Basophils % Nucleated RBC % Absolute Neutrophils Absolute Lymphocytes Absolute Monocytes Absolute Eosinophils Absolute Basophils Sodium Potassium Chloride Carbon Dioxide Anion Gap BUN Creatinine Estimated GFR/1.73 m2 Glucose Calcium Total Bilirubin AST ALT Alkaline Phosphatase C-Reactive Protein 0.67 H Total Protein Albumin Triglycerides 58 Lipase Procalcitonin Urine Color Yellow Urine Clarity Clear Urine pH 7.5 Ur Specific [place] 1.025 Urine Protein Trace H Urine Ketones Negative Urine Blood Negative Urine Nitrite Negative Urine Bilirubin Negative Urine Urobilinogen 0.2 Ur Leukocyte Esterase Negative Urine RBC Negative Urine WBC Negative Ur Epithelial Cells Rare Urine Crystals Negative Urine Bacteria Negative Urine Casts 0-2 Hyaline Urine Mucus Negative Ur Culture Indicated? No Urine Glucose Negative COVID-19 Source SARS-CoV-2 (PCR) Add-On Test Request DONE 01/07/22 12:32 WBC RBC Hgb Hct MCV MCH MCHC RDW Plt Count MPV Immature Gran % Neutrophils % Lymphocytes % Monocytes % Eosinophils % Basophils % Nucleated RBC % Absolute Neutrophils Absolute Lymphocytes Absolute Monocytes Absolute Eosinophils Absolute Basophils Sodium Potassium Chloride Carbon Dioxide Anion Gap BUN Creatinine Estimated GFR/1.73 m2 Glucose Calcium Total Bilirubin AST ALT Alkaline Phosphatase C-Reactive Protein Total Protein Albumin Triglycerides Lipase Procalcitonin < 0.1 Urine Color Urine Clarity Urine pH Ur Specific [place] Urine Protein Urine Ketones Urine Blood Urine Nitrite Urine Bilirubin Urine Urobilinogen Ur Leukocyte Esterase Urine RBC Urine WBC Ur Epithelial Cells Urine Crystals Urine Bacteria Urine Casts Urine Mucus Ur Culture Indicated? Urine Glucose COVID-19 Source SARS-CoV-2 (PCR) Add-On Test Request Last Vital Signs Temp 37.1 C 01/07/22 15:51 Pulse 72 01/07/22 15:51 Resp 16 01/07/22 15:51 BP 170/90 H 01/07/22 15:51 Pulse Ox 100 01/07/22 15:51 PAWSS Have you Been Recently Intoxicated or Drunk Within the Last 30 days?: No Have you Ever Experienced Previous Episodes of Alcohol Withdrawal?: No Have you ever Experienced Withdrawal Seizures?: No Have you ever Experienced Delirium Tremens(DT)s?: No Have you ever undergone Alcohol Rehabilitation Treatment (i.e, inpt ot outpatient treatment programs)?: Yes Have you ever Experienced Blackouts?: Yes Have you ever Combined Alcohol with other Downers within the last 90 days?: Yes Have you ever Combined Alcohol with any other Substance of Abuse during the last 90 days?: Yes Positive Blood Alcohol level on Presentation? [PCS.BAL]: Unable to Obtain Evidence of Increased Autonomic Activity (i.e. HR>120, tremor, sweating, agitation, nausea)?: Yes Result: 5
[2022-01-07 20:00] LABS: Lab Add On Test DONE
[2022-01-07 20:28] LABS: *AMPHETAMINES SCREEN URINE Negative (Negative); *BARBITURATES SCREEN URINE Negative (Negative); *BENZODIAZEPINES SCREEN URINE Negative (Negative); Cannabinoids THC Positive (Negative); Cocaine Screen,Urine Positive (Negative); METHADONE URINE SCREEN Positive (Negative); OPIATES URINE SCREEN Negative (Negative)
[2022-01-07 20:29] LABS: Tricyclic Antidepressants Negative (Negative)
[2022-01-08] VITALS (12 sets, daily range): BP systolic 153–169; BP diastolic 57–107; PULSE 63–80; RESP 16–18; TEMP 36.5–37; O2SAT 92–100
[2022-01-08] MEDS: Ketorolac 30 MG/ML VIAL IVP ×2 (03:39→11:15)
[2022-01-08] MEDS: Lactated Ringers 1,000 ML 200 ML IV (03:39)
[2022-01-08 07:18] LABS: Abs Immature Grans 0.01 10^3/uL (0.0-0.06); Absolute Basophil Count 0.07 10^3/uL (0.0-0.2); Absolute Lymphocyte Count 1.78 10^3/uL (1.2-3.4); Absolute Monocyte Count 0.45 10^3/uL (0.1-0.8); Absolute Neutrophil Count 4.21 10^3/uL (1.2-6.7); HGB 13.2 g/dL (13.5-17.5); Immature Grans % 0.1; Lymphocytes % 26.5; MCH 30.8 pg (27.0-33.0); MCHC 33.8 % (32.0-36.0); MCV 91 fL (80-95); MPV 9.7 fL (8.0-11.0); Monocytes % 6.7; Neutrophils % 62.7; Platelet Count 268 10^3/uL (130-400); RBC 4.28 10^6/uL (4.36-5.78); RDW 12.3 % (11.8-14.1); RDW-SD 41.3 fL; WBC 6.72 10^3/uL (4.4-10.8)
[2022-01-08] MEDS: Thiamine 100 MG TAB PO (07:44)
[2022-01-08 07:45] LABS: ALT 27 U/L (16-63); AST 25 U/L (15-37); Albumin 3.2 g/dL (3.4-5.0); Alkaline Phosphatase 93 U/L (46-116); Anion Gap 5.3 mmol/L (3-11); BUN 6 mg/dL (7-18); Bilirubin, Direct 0.1 mg/dL (0.0-0.2); Bilirubin, Total 0.5 mg/dL (0.2-1.0); CO2 30.7 mmol/L (21.0-32.0); CREATININE 0.6 mg/dL (0.70-1.30); Calcium 8.6 mg/dL (8.5-10.1); Chloride 101 mmol/L (98-107); Glucose 114 mg/dL (74-106); Magnesium 1.8 mg/dL (1.8-2.4); Potassium 3.3 mmol/L (3.5-5.1); Sodium 137 mmol/L (136-145); Total Protein 6.8 g/dL (6.4-8.2)
[2022-01-08] MEDS: Folic Acid 1 MG TAB PO (07:45)
[2022-01-08] MEDS: Multivitamin TAB 1 TAB PO (07:45)
[2022-01-08] MEDS: Methadone Liquid 10 MG/ML 90 MG PO (07:45)
[2022-01-08 08:03] LABS: Lipase 2800 U/L (73-393)
[2022-01-08 08:44] LABS: Hemoglobin A1C 5.2 % (<5.7)
[2022-01-08] MEDS: Normal Saline Flush 10 ML SYR IVP ×4 (08:57→22:57)
--- NOTE | 2022-01-08 09:37 | PDOC.CMIN ---
- If Service Date Differs Date of service: 01/08/22 Time of Service: 09:37 Care Management Initial Assess REASON FOR HOSPITALIZATION:: Pancreatitis PAST MEDICAL HISTORY/PAST SURGICAL HISTORY:: All Active Problems (Updated 01/07/22 @ 19:10 by Itzel Cole MD). GERD (gastroesophageal reflux disease) (Chronic). Discharge planning issues (Acute). DVT prophylaxis (Acute). Depression (Chronic). Tobacco dependence due to cigarettes (Chronic). Alcohol abuse, daily use (Chronic). Opioid dependence on agonist therapy (Chronic). Pancreatitis, acute (Acute). Medical History (Updated 01/07/22 @ 19:10 by Itzel Cole MD). Pancreatitis PREVIOUS FUNCTIONAL STATUS/SOCIAL/FAMILY SUPPORTS:: Paco lives in [place] with his mother. He has 4 children who live in the area that he sees occasionally. 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 He does receive [employer] [place] but no other community services. CURRENT FUNCTIONAL STATUS:: Paco was sitting up in bed whjen CM met with him. he was pleasant and agreeable to conversation. Paco stated that his pain was well controlled at that time as he had just been medicated. He informed CM that he has had one previous episode of pancreatitis and knew to seek help when symptoms began. Paco discussed the fact that he knows that alcohol can contribute to pancreatitis but he does not believe he has a problem with alcohol. ADVANCE DIRECTIVES:: none on file Has patient been provided with info about the portal/API?: Yes Did the patient sign up for the portal?: No CODE STATUS:: Full Code INSURANCE COVERAGE / FINANCIAL ISSUES:: Medicaid CURRENT HOME/COMMUNITY SERVICES/EQUIPMENT:: none PRIMARY CARE PHYSICIAN:: Cm Neri POTENTIAL DISCHARGE NEEDS:: Follow up with PCP and plan of care PATIENT/FAMILY EDUCATION NEEDS:: Review of discharge instructions, follow up plan, medications, activity, limitations, Ask Me Three. PLAN:: Mark will hugo be discharged home with no new services. He will follow up with his PCP and plan of care and transport with family. CM will continue to support Mark and his discharge needs.
[2022-01-08] MEDS: Pantoprazole 40 MG VIAL IVP ×2 (11:15→22:56)
[2022-01-08] MEDS: Enoxaparin 40 MG/0.4 ML SYR SC (12:08)
[2022-01-08] MEDS: Potassium Chloride 20 MEQ TABCR PO ×2 (13:22→20:05)
--- NOTE | 2022-01-08 16:31 | PGE_ITS ---
Date of Service Date of service: 01/08/22 Time of Service: 16:32 Assessment and Plan Assessment and plan (1) Pancreatitis, acute: Status: Acute Assessment and plan: improving. advance to solids diet tonight and if no increase in his pain or nausea then dc home in the a.m. Qualifiers: Pancreatitis type: alcohol induced Acute pancreatitis complication: no infection or necrosis Qualified Code(s): K85.20 - Alcohol induced acute pancreatitis without necrosis or infection (2) Alcohol abuse, daily use: Status: Chronic Assessment and plan: patient understands that he can not go back to drinking any alcohol whatsovever. 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 protonix Subjective Subjective Patient reports: feels better, pain is less and tolerating liquids well Exam Narrative Exam Narrative: Patient appears calm, relaxed, has minimal abdominal discomfort Abdomen: normal bowel sounds, soft, no guarding or rebound tenderness and minimal epigastric tenderness only w/ deep palpation Objective Last Vital Signs Temp 36.6 C 01/08/22 15:11 Pulse 66 01/08/22 15:11 Resp 16 01/08/22 15:11 BP 157/85 H 01/08/22 15:11 Pulse Ox 96 01/08/22 15:11 Laboratory Results - last 24 hr 01/07/22 01/07/22 01/08/22 09:50 09:50 05:59 WBC RBC Hgb Hct MCV MCH MCHC RDW Plt Count MPV Immature Gran % Neutrophils % Lymphocytes % Monocytes % Eosinophils % Basophils % Nucleated RBC % Absolute Neutrophils Absolute Lymphocytes Absolute Monocytes Absolute Eosinophils Absolute Basophils Sodium 137 Potassium 3.3 L Chloride 101 Carbon Dioxide 30.7 Anion Gap 5.3 BUN 6 L Creatinine 0.6 L Estimated GFR/1.73 m2 >= 60.00 Glucose 114 H Hemoglobin A1c Calcium 8.6 Magnesium 1.8 Total Bilirubin 0.5 Conjugated Bilirubin 0.1 AST 25 ALT 27 Alkaline Phosphatase 93 C-Reactive Protein 0.50 H Total Protein 6.8 Albumin 3.2 L Lipase 2800 H Urine Opiates Screen Negative Urine Methadone Screen Positive A Ur Barbiturates Screen Negative Ur Tricyclics Screen Negative Ur Amphetamines Screen Negative U Benzodiazepines Scrn Negative Urine Cocaine Screen Positive A Ur THC Screen Positive A Add-On Test Request DONE 01/08/22 01/08/22 05:59 05:59 WBC 6.72 RBC 4.28 L Hgb 13.2 L Hct 39.0 L MCV 91 MCH 30.8 MCHC 33.8 RDW 12.3 Plt Count 268 MPV 9.7 Immature Gran % 0.1 Neutrophils % 62.7 Lymphocytes % 26.5 Monocytes % 6.7 Eosinophils % 3.0 Basophils % 1.0 Nucleated RBC % 0.0 Absolute Neutrophils 4.21 Absolute Lymphocytes 1.78 Absolute Monocytes 0.45 Absolute Eosinophils 0.20 Absolute Basophils 0.07 Sodium Potassium Chloride Carbon Dioxide Anion Gap BUN Creatinine Estimated GFR/1.73 m2 Glucose Hemoglobin A1c 5.2 Calcium Magnesium Total Bilirubin Conjugated Bilirubin AST ALT Alkaline Phosphatase C-Reactive Protein Total Protein Albumin Lipase Urine Opiates Screen Urine Methadone Screen Ur Barbiturates Screen Ur Tricyclics Screen Ur Amphetamines Screen U Benzodiazepines Scrn Urine Cocaine Screen Ur THC Screen Add-On Test Request PAWSS Have you Been Recently Intoxicated or Drunk Within the Last 30 days?: No Have you Ever Experienced Previous Episodes of Alcohol Withdrawal?: No Have you ever Experienced Withdrawal Seizures?: No Have you ever Experienced Delirium Tremens(DT)s?: No Have you ever undergone Alcohol Rehabilitation Treatment (i.e, inpt ot outpatient treatment programs)?: Yes Have you ever Experienced Blackouts?: Yes Have you ever Combined Alcohol with other Downers within the last 90 days?: Yes Have you ever Combined Alcohol with any other Substance of Abuse during the last 90 days?: Yes Positive Blood Alcohol level on Presentation? [PCS.BAL]: Unable to Obtain Evidence of Increased Autonomic Activity (i.e. HR>120, tremor, sweating, agitation, nausea)?: Yes Result: 5
[2022-01-09 03:11] VITALS: BP 134/86; PULSE 57; RESP 16; TEMP 36.4; O2SAT 96
[2022-01-09 07:28] LABS: Abs Immature Grans 0.02 10^3/uL (0.0-0.06); Absolute Basophil Count 0.08 10^3/uL (0.0-0.2); Absolute Eosinophil Count 0.26 10^3/uL (0.0-0.7); Absolute Lymphocyte Count 2.52 10^3/uL (1.2-3.4); Absolute Monocyte Count 0.65 10^3/uL (0.1-0.8); Absolute Neutrophil Count 2.52 10^3/uL (1.2-6.7); Basophils % 1.3; Eosinophils % 4.3; HCT 40.5 % (40.0-50.0); HGB 13.2 g/dL (13.5-17.5); Immature Grans % 0.3; Lymphocytes % 41.7; MCH 30.8 pg (27.0-33.0); MCHC 32.6 % (32.0-36.0); MCV 94 fL (80-95); MPV 9.7 fL (8.0-11.0); Monocytes % 10.7; Neutrophils % 41.7; Platelet Count 269 10^3/uL (130-400); RBC 4.29 10^6/uL (4.36-5.78); RDW 12.6 % (11.8-14.1); RDW-SD 43.8 fL; WBC 6.05 10^3/uL (4.4-10.8)
[2022-01-09 07:35] VITALS: BP 157/87; PULSE 67; RESP 18; TEMP 36.4; O2SAT 100
[2022-01-09 07:54] LABS: ALT 27 U/L (16-63); AST 24 U/L (15-37); Albumin 3.3 g/dL (3.4-5.0); Alkaline Phosphatase 92 U/L (46-116); Anion Gap 4.8 mmol/L (3-11); BUN 8 mg/dL (7-18); Bilirubin, Total 0.2 mg/dL (0.2-1.0); CO2 32.2 mmol/L (21.0-32.0); CREATININE 0.7 mg/dL (0.70-1.30); Calcium 9.1 mg/dL (8.5-10.1); Chloride 103 mmol/L (98-107); Glucose 121 mg/dL (74-106); Potassium 4.3 mmol/L (3.5-5.1); Sodium 140 mmol/L (136-145); Total Protein 6.9 g/dL (6.4-8.2)
[2022-01-09] MEDS: Thiamine 100 MG TAB PO (08:52)
[2022-01-09] MEDS: Folic Acid 1 MG TAB PO (08:52)
[2022-01-09] MEDS: Multivitamin TAB 1 TAB PO (08:52)
[2022-01-09] MEDS: Potassium Chloride 20 MEQ TABCR PO (08:52)
--- NOTE | 2022-01-09 08:52 | PDOC.CMPRO ---
- If Service Date Differs Date of service: 01/09/22 Time of Service: 08:52 Care Management Progress Note S/O: A: Paco is a 51 year old man admitted on 01/07/22 with pancreatitis P:Mark will likely be discharged home with no new services. He will follow up with his PCP and plan of care and transport with family. CM will continue to support Mark and his discharge needs.
[2022-01-09] MEDS: Methadone Liquid 10 MG/ML 90 MG PO (08:53)
--- NOTE | 2022-01-09 10:10 | DSE_ITS ---
Date of service: 01/09/22 Time of Service: 10:10 DS: Diagnosis Discharge Diagnosis (1) Pancreatitis, acute: Status: Acute (2) Opioid dependence on agonist therapy: Status: Chronic (3) Alcohol abuse, daily use: Status: Chronic (4) Tobacco dependence due to cigarettes: Status: Chronic (5) GERD (gastroesophageal reflux disease): Status: Chronic Discharge Plan Disposition Patient Disposition: HOME Condition: Improving Discharge Details Reason For Visit: Acute Pancreatitis Admit Date/Time: 01/07/22 10:25 Admit Provider: Itzel Cole Attending Provider: Itzel Cole Primary Care Provider: Cm Neri Hospital Course Hospital Course: This is a 51 year old male with history of pancreatitis, alcohol and tobacco abuse, as well as GERD, depression, opioid dependence on methadone who presented to [facility] ED having with severe epigastric pain without nausea, diarrhea, or fever. The patient drinks 4 tall beers/day and denies history of alcohol withdrawal or seizures. His workup in the ED is shows severe pancreatitis. He was admitted to hospitalist services for further management and monitoring. He received IV fluid bolus and IV pain management. His found most relief from toradol. His diet was advanced and his pain continued to improve. He remained hemodynamically stable and was ambulatory in his room without any issue. bowel and bladder functioning well. He is stable and ready for discharge to home with no services. he was advised to abstain from alcohol. He will be provided a last dose letter for his methadone. discussed with Dr Bernal. Home Meds and New Rx's Prescriptions: New ketorolac 10 mg tablet 10 mg PO Q6H PRN5 Days Qty: 12 0RF Continued methadone [Methadone Intensol] 10 mg/mL Concentrate 90 mg PO DAILY pantoprazole [Protonix] 40 mg Tablet,Delayed Release (Dr/Ec) 90 mg PO DAILY Discharge Instructions Instructions: Pancreatitis (DC) Additional Instructions: avoid alcohol Stand Alone Forms: Nursing Discharge Form Referrals: Cm Neri [Primary Care Provider] - 01/21/22 1:40 pm (you will be seeing Dr Roxanna Lopez at [facility] [phone]) Activity:: Activity as Tolerated Equipment/Supplies:: No Equipment Needed Diet:: As Tolerated Discharge Orders Discharge Orders: Discharge Order (Routine); Ordered 01/09/22 Ordered By: Jordana Mcgovern DS: Summary Time Spent with Patient providing and/or coordinating discharge services: Less than 30 minutes Status at Discharge Functional status at discharge: independent ambulation Overall status at discharge: patient is back to baseline Mental Status: mental status grossly normal Speech and Movement: speech and movement normal Mood: congruent mood Affect: normal affect Exam Const General: cooperative, comfortable and no acute distress Nutritional Appearance: thin Orientation: alert, awake and oriented x3 HENMT Head: normal to inspection, normocephalic and atraumatic Face and sinus: normal facial exam Mouth: oral mucosae normal Eyes General: appearance normal, both eyes and all related structures Sclera: sclerae normal Resp Effort & Inspection: normal respiratory effort Cardio Rate: regular rate Rhythm: regular rhythm GI Inspection: normal to inspection and non-distended Palpation: soft, no guarding, tender (minimal ) in the epigastrum and No ascites Auscultation: normal bowel sounds Skin General skin exam: no rashes or lesions noted Neuro General: patient alert, patient awake and patient oriented x3 Cognition: normal cognition Speech: speech normal Gait: normal gait Motor: muscle tone normal throughout Sensory Exam: no sensory deficits noted Extrem General: normal to inspection, full ROM and no pedal edema Psych Appearance: grossly normal Mental Status: mental status grossly normal Speech and Movement: speech and movement normal Mood: congruent mood Affect: normal affect Attitude: cooperative Thought Process: normal Thought Content: normal Insight: insight good Judgment: judgment good DS: Data Vitals/I&O Vitals and I&O: Vital Signs Temperature 36.4 C L 01/09/22 07:35 Temperature Source Tympanic 01/09/22 07:35 Pulse 67 01/09/22 07:35 Pulse Rhythm Regular 01/08/22 21:44 Pulse 68 01/07/22 11:30 Respiratory Rate 18 01/09/22 07:35 Respiratory Effort Non-Labored 01/08/22 21:44 Respiratory Depth Normal 01/08/22 21:44 Respiratory Pattern Normal 01/08/22 21:44 Blood Pressure 157/87 H 01/09/22 07:35 Blood Pressure Mean 115 01/07/22 09:30 Blood Pressure Position Supine 01/07/22 07:41 Pulse Oximetry 100 01/09/22 07:35 Oxygen Delivery Method Room Air 01/09/22 07:35 Oxygen Flow Rate 0 01/09/22 07:35 Pain Level 2 01/09/22 07:35 Comment 01/07/22 19:42 Intake & Output 01/08/22 01/08/22 01/09/22 11:59 23:59 11:59 Intake Total 2673.333 / 4443.333 1770 / 4443.333 Output Total 2150 / 3750 1600 / 3750 1600 / 1600 Balance 523.333 / 693.333 170 / 693.333 -1600 / -1600 Weight 67.7 kg Intake: IV 1893.333 / 1893.333 Oral 780 / 2550 1770 / 2550 Output: Urine 2150 / 3750 1600 / 3750 1600 / 1600 Other: Urine Color Yellow Yellow Yellow Straw Urine Appearance Clear Clear Clear Urine Odor None Normal Comment Per pt. report, void x1 in the toilet. Voiding Methods Urinal Urinal Urinal Data Completed and Pending Labs on day of discharge: Labs from last 24 hours 01/09/22 01/09/22 06:17 06:17 WBC 6.05 RBC 4.29 L Hgb 13.2 L Hct 40.5 MCV 94 MCH 30.8 MCHC 32.6 RDW 12.6 Plt Count 269 MPV 9.7 Immature Gran % 0.3 Neutrophils % 41.7 Lymphocytes % 41.7 Monocytes % 10.7 Eosinophils % 4.3 Basophils % 1.3 Nucleated RBC % 0.0 Absolute Neutrophils 2.52 Absolute Lymphocytes 2.52 Absolute Monocytes 0.65 Absolute Eosinophils 0.26 Absolute Basophils 0.08 Sodium 140 Potassium 4.3 D Chloride 103 Carbon Dioxide 32.2 H Anion Gap 4.8 BUN 8 Creatinine 0.7 Estimated GFR/1.73 m2 >= 60.00 Glucose 121 H Calcium 9.1 Magnesium 2.0 Total Bilirubin 0.2 AST 24 ALT 27 Alkaline Phosphatase 92 Total Protein 6.9 Albumin 3.3 L PFSH All Active Problems (Updated 01/07/22 @ 19:10 by Itzel Cole MD) GERD (gastroesophageal reflux disease) (Chronic) Discharge planning issues (Acute) DVT prophylaxis (Acute) Depression (Chronic) Tobacco dependence due to cigarettes (Chronic) Alcohol abuse, daily use (Chronic) Opioid dependence on agonist therapy (Chronic) Pancreatitis, acute (Acute) Medical History (Updated 01/07/22 @ 19:10 by Itzel Cole MD) Pancreatitis Family History (Updated 01/07/22 @ 19:12 by Itzel Cole MD) Maternal Uncle Heart disease Diabetes Mother Diabetes Maternal Uncle Cancer prostate cancer Social History Smoking/Tobacco Use Status: Current every day Tobacco Type: cigarettes Smoking risk assessment performed?: Yes Alcohol Intake: current Alcohol Intake frequency: 3 or more drinks per day Alcohol type: beer Drug use: Daily Substance use type: marijuana and crack/cocaine Do you feel safe at home: Yes Do you feel safe in your relationship?: Yes
--- NOTE | 2022-01-09 15:54 | PDOC.CMDIS ---
- If Service Date Differs Date of service: 01/09/22 Time of Service: 15:54 LACE Index Scoring Tool - Questions: Length of Stay (in days): 2 Acuity (Admit via E.D.?): Yes E.D. Visits: 1 - Answers: Total Score: 6 Risk of Readmission: Low Risk Care Management Discharge Reason for Hospitalization: Pancreatitis Discharge Plan: Mark will be discharged home with no new services. He will follow up with his PCP and plan of care and transport with family. CM provided him with a last dose letter for his methadone at his request. Patient/Family Education Needs: Review of discharge instructions, follow up plan, medications, activity, limitations, Ask Me Three.
== END 2022-01-09 10:54 | disposition home or self-care (01) | DRG 439 ==
LOC: ER 07:53 → MS 11:48
PROVIDERS: Internal Medicine; Admitting Provider Internal Medicine; Emergency Provider Student in an Organized Health Care Education/Training Program; PCP Family Medicine; Visit Provider Internal Medicine
DX: K85.20 Alcohol induced acute pancreatitis without necrosis or infection (principal); F11.20 Opioid dependence, uncomplicated; F10.10 Alcohol abuse, uncomplicated; F17.210 Nicotine dependence, cigarettes, uncomplicated; K21.9 Gastro-esophageal reflux disease without esophagitis; F32.A Depression, unspecified
CPT/HCPCS: 36415; 80048; 80053; 80076; 80307; 83690; 84145; 87635; 93005; 96361; 96374; 99285; J1650; 74177; 81003; 81015; 83036; 83735; 84478; 85025; 86140; 93010; 99223; 99231; 99238; J1170; J1885; J3490

== ENCOUNTER 2022-12-13 11:02 | Outpatient (REF) | payer MEDICAID, SELFPAY ==
[2022-12-13 14:58] LABS: HCT 41.3 % (40.0-50.0); HGB 14.2 g/dL (13.5-17.5); MCH 32.6 pg (27.0-33.0); MCHC 34.4 % (32.0-36.0); MCV 95 fL (80-95); MPV 9.8 fL (8.0-11.0); Platelet Count 275 10^3/uL (130-400); RBC 4.35 10^6/uL (4.36-5.78); RDW 12.6 % (11.8-14.1); RDW-SD 44.1 fL; WBC 4.41 10^3/uL (4.4-10.8)
[2022-12-13 15:21] LABS: ALT 83 U/L (16-63); AST 111 U/L (15-37); Alkaline Phosphatase 160 U/L (46-116); Anion Gap 8.2 mmol/L (3-11); BUN 5 mg/dL (7-18); Bilirubin, Total 0.2 mg/dL (0.2-1.0); CO2 30.8 mmol/L (21.0-32.0); CREATININE 0.8 mg/dL (0.70-1.30); Calcium 8.8 mg/dL (8.5-10.1); Calculated LDL 111 mg/dL (<100); Chloride 100 mmol/L (98-107); Cholesterol 197 mg/dL (<200); Estimated GFR 107.82 (mL/min/1.73m2); Glucose 103 mg/dL (74-106); HDL Cholesterol 69 mg/dL (40-60); Potassium 4.3 mmol/L (3.5-5.1); Sodium 139 mmol/L (136-145); TSH 1.09 uIU/mL (0.36-3.74); Total Protein 8.1 g/dL (6.4-8.2); Triglyceride 86 mg/dL (<150)
== END 2022-12-13 11:03 | disposition home or self-care (01) ==
LOC: NCHCN 11:02
PROVIDERS: PCP Family Medicine; Visit Provider Family Medicine
DX: R63.4 Abnormal weight loss (principal); R03.0 Elevated blood-pressure reading, without diagnosis of hypertension; F10.10 Alcohol abuse, uncomplicated; R79.89 Other specified abnormal findings of blood chemistry
CPT/HCPCS: 80053; 80061; 85027; 84443

== ENCOUNTER 2023-10-10 10:07 | Outpatient (REF) | payer MEDICAID, SELFPAY ==
[2023-10-10 15:42] LABS: Abs Immature Grans 0.03 10^3/uL (0.0-0.06); Absolute Basophil Count 0.09 10^3/uL (0.0-0.2); Absolute Eosinophil Count 0.06 10^3/uL (0.0-0.7); Absolute Lymphocyte Count 1.67 10^3/uL (1.2-3.4); Absolute Monocyte Count 0.96 10^3/uL (0.1-0.8); Basophils % 1.2; Eosinophils % 0.8; HCT 44.6 % (40.0-50.0); HGB 14.9 g/dL (13.5-17.5); Immature Grans % 0.4; Lymphocytes % 22.5; MCH 32.3 pg (27.0-33.0); MCHC 33.4 % (32.0-36.0); MCV 97 fL (80-95); MPV 10.3 fL (8.0-11.0); Neutrophils % 62.1; Platelet Count 364 10^3/uL (130-400); RBC 4.61 10^6/uL (4.36-5.78); RDW 11.9 % (11.8-14.1); RDW-SD 42.5 fL; WBC 7.41 10^3/uL (4.4-10.8)
[2023-10-10 15:54] LABS: ESR 24 mm/hr (0-20)
[2023-10-10 16:09] LABS: ALT 42 U/L (16-63); AST 33 U/L (15-37); Albumin 3.9 g/dL (3.4-5.0); Alkaline Phosphatase 89 U/L (46-116); Anion Gap 9.9 mmol/L (3-11); BUN 11 mg/dL (7-18); Bilirubin, Total 0.2 mg/dL (0.2-1.0); CO2 29.1 mmol/L (21.0-32.0); CREATININE 0.9 mg/dL (0.70-1.30); Calcium 9.5 mg/dL (8.5-10.1); Chloride 100 mmol/L (98-107); Glucose 225 mg/dL (74-106); Potassium 4.2 mmol/L (3.5-5.1); Sodium 139 mmol/L (136-145); Total Protein 8.1 g/dL (6.4-8.2)
[2023-10-10 16:11] LABS: C-Reactive Protein < 0.50 mg/dL (<or=0.5)
== END 2023-10-10 10:08 | disposition home or self-care (01) ==
LOC: NCHCN 10:07
PROVIDERS: PCP Family Medicine; Visit Provider Family Medicine
DX: M10.9 Gout, unspecified (principal); R70.0 Elevated erythrocyte sedimentation rate
CPT/HCPCS: 80053; 85652; 84550; 85025; 86140

== ENCOUNTER 2024-04-30 11:13 | Outpatient (CLI) | payer MEDICAID, SELFPAY ==
--- NOTE | 2024-04-30 | DI.CTLCSR_ITS ---
Exam(s) CT CHEST LUNG CANCER SCREEN EXAM: CT CHEST LUNG CANCER SCREEN CLINICAL HISTORY: F17.200 Nicotine dependence, unspecified,uncomplicated TECHNIQUE: Imaging Protocol: Axial computed tomography images with coronal and sagittal reformatted images were created and reviewed. Computer aided detection (CAD) was utilized. COMPARISON: CT CT CHEST PE ABD PELVIS W from 11/30/[address] ABDOMEN PELVIS W from 01/07/2022 FINDINGS: Tracheobronchial tree: Patent where visualized. No bronchiectasis. Pulmonary parenchyma: No consolidation or dominant measurable mass. No architectural distortion. Calc ified granuloma are present. Mild paraseptal and centrilobular emphysematous changes are present. Lung Nodules: There is a 2 mm noncalcified pulmonary nodule in the right upper lobe (series 2, image 20). Mediastinum and Yaima: No dominant adenopathy or fluid collection. The esophagus is unremarkable. Thyroid gland: There is a 9 mm hypodensity in the left lobe of the thyroid gland. No follow-up is re commended. Lymph nodes: Unremarkable. Pleura: No effusion or pneumothorax. Heart: The heart is not dilated. Mild coronary artery calcification is present. No pericardial effus ion. Aorta: Thoracic aorta non-dilated.Atherosclerotic calcification is present. Upper abdomen: Pancreatic calcifications are present. This can be seen with prior episodes of pancr eatitis. Soft Tissues: Unremarkable. Bones: Within normal limits. IMPRESSION: 2 mm noncalcified right upper lobe pulmonary nodule. Lung RADS Cat 2 - Benign Appearance / Behavior: Nodules with a very low likelihood of becoming a clin ically active cancer due to size or lack of growth Lung-RADS 1.0 CATEGORIES: Category 0 - Prior chest CT exam(s) being located for comparison. Category 1 - Annual screening in 12 months. No nodules or definitely benign nodules. Category 2 - Annual screening in 12 months. Benign appearance. Nodules with low likelihood of becomin g active cancer. Category 3 - 6-month follow-up. Probably benign. Short-term follow-up suggested. Nodules with low lik elihood of becoming active cancer. Category 4A - 3-month follow-up and CT/PET if >8 mm in size. Suspicious finding. Findings which requi re additional testing. Category 4B - Findings which require additional testing and tissue sampling. Suspicious finding. Category 4X - Category 3 or 4 nodules with additional features or imaging findings that increases the suspicion of malignancy. Modifier S- Potentially clinically significant finding. (Non lung cancer) RADIATION DOSE DELIVERED: 34.66mGy.cm Total DLP 34.66mGy.cmTotal DLP DATA REPOSITORY: All CT scans at this facility are submitted to the National Radiology Data Registry (NRDR) Dose Index Registry (DIR) with the [employer] ([employer]). RADIATION OPTIMIZATION: All CT scans at this facility use at least one of these dose optimization te chniques: automated exposure control; mA and/or kV adjustment per patient size (includes targeted exa ms where dose is matched to clinical indication); or iterative reconstruction.
--- NOTE | 2024-04-30 08:50 | DI.RAD_ITS ---
Exam(s) XR HIP RT COMPLETE AP PELVIS EXAM: XR HIP RT COMPLETE AP PELVIS CLINICAL HISTORY: M25.551 Pain in rt hip. TECHNIQUE: 2D digital imaging was performed of the right hip. Two images were obtained. AP pelvis a nd lateral right hip views were obtained. COMPARISON: No exams were available for comparison FINDINGS: BONES: No acute fracture is present. No bony destructive lesion is seen. JOINTS: No dislocation present. There is marked narrowing of the superior joint space of the right hi p. The sacroiliac joints and symphysis pubis are unremarkable. SOFT TISSUE: Normal. IMPRESSION: Marked narrowing of the right hip joint space. DATA REPOSITORY: RADIATION DOSE DELIVERED:
== END 2024-04-30 11:33 ==
LOC: DI 11:13
PROVIDERS: PCP Family Medicine; Visit Provider Family Medicine
DX: M16.11 Unilateral primary osteoarthritis, right hip (principal); Z12.2 Encounter for screening for malignant neoplasm of respiratory organs; F17.210 Nicotine dependence, cigarettes, uncomplicated; R91.1 Solitary pulmonary nodule
CPT/HCPCS: 71271; 73502